=== PATIENT | male | born 1965 | race Hispanic/Latino ===

== ENCOUNTER 2019-07-21 16:20 | Emergency (ER) | payer SELFPAY ==
[2019-07-21] MEDS ORDERED: TETANUS,DIPH,PERTUSS(ACELL) VACCINE 0.5 ML SYRINGE IM ONE ×2 (17:16→23:24)
--- NOTE | 2019-07-21 17:16 | Emergency Department Report ---
Blank Doc - Documentation Documentation: 54-year-old male that presents with bilateral feet pain, swelling, with purulent drainage. Symptoms started after stepping on glass. Was sent by PCP. This initial assessment/diagnostic orders/clinical plan/treatment(s) is/are subject to change based on patient's health status, clinical progression and re- assessment by fellow clinical providers in the ED. Further treatment and workup at subsequent clinical providers discretion. Patient/guardians urged not to elope from the ED as their condition may be serious if not clinically assessed and managed. Initial orders include: 1- Patient sent to [facility] for further evaluation and treatment 2- xrays 3- last tetanus shot 2003
--- NOTE | 2019-07-21 18:00 | XRay Report ---
XR foot 3+V RT INDICATION / CLINICAL INFORMATION: right foot pain and swelling r/o foreign body. COMPARISON: None available. FINDINGS: BONES/JOINT(S): There is mild joint space loss with some marginal erosion around the first MTP joint which may suggest underlying gout. There is no definite aggressive-appearing bone destruction. SOFT TISSUES: There is some subcutaneous gas and soft tissue swelling around the first MTP joint with out radiopaque foreign body. ADDITIONAL FINDINGS: None. Signer Name: Macario Rutherford MD Signed: 07/21/2019 5:56 PM Workstation Name: [id number]
[2019-07-21] MEDS ORDERED: VANCOMYCIN/NS 1 GM/250 ML 1 GM/250 ML BAG IV ONE (19:54)
[2019-07-21] MEDS ORDERED: SODIUM CHLORIDE 0.9% 1000 ML 1,000 ML IV ONE (19:55)
[2019-07-21] MEDS ORDERED: ACETAMINOPHEN 500 MG TAB PO ONE (19:55)
[2019-07-21] MEDS ORDERED: VANCOMYCIN 2,000 MG in SODIUM CHLORIDE 0.9% 500 ML 500 ML IV ONE (20:30)
[2019-07-21 20:54] LABS: Hematocrit 29.3 % (35.5-45.6); Hemoglobin 9.7 gm/dl (11.8-15.2); Mean Corpuscular HGB Conc 33 % (32-34); Mean Corpuscular Volume 81 fl (84-94); Red Blood Count 3.63 M/mm3 (3.65-5.03); Red Cell Distribution Width 14.3 % (13.2-15.2)
[2019-07-21 21:06] LABS: Platelet Count 640 K/mm3 (140-440)
[2019-07-21 21:23] LABS: Albumin 3.1 g/dL (3.9-5); Calcium 9.2 mg/dL (8.4-10.2)
[2019-07-21 23:00] LABS: Basophils % (Manual) 0 % (0.0-1.8); Total Cells Counted 100
[2019-07-21 23:01] LABS: Platelet Estimate Appears Increased; RBC Morphology Normal
--- NOTE | 2019-07-21 23:29 | Emergency Department Report ---
ED Extremity Problem HPI - General Chief complaint: Extremity Problem,Nontraumatic Stated complaint: INFECTED FEET Time Seen by Provider: 07/21/19 17:14 Source: patient Mode of arrival: Ambulatory Limitations: No Limitations - History of Present Illness Initial comments: Patient is a 54-year-old white male with a history of hkm-tmdjxze-nsedegokx diabetes, chronic diabetic neuropathy and chronic recurrent diabetic ulcer of the feet bilaterally presents to the ED with acute exacerbation of his chronic diabetic foot ulcers, worse on the dorsal right food and right first MTP for the last 1 week, and especially worse in the last 2 days. Patient states that he has been treating his foot ulcers with peroxide and that he was initially evaluated by his primary care physician about 12 hours ago, and after the wounds were cleaned and dressed up was advised to come to the ED for further evaluation. Patient denies chest pain, traumatic injury, shortness of breath, nausea, vomiting, fever, chills, low back pain, abdominal pain or syncope. MD Complaint: extremity pain (right foot and first MTP pain, swelling and erythematous rash with open wound), extremity swelling (right foot pain and swelling), joint swelling (right first MTP pain and swelling) -: Sudden, days(s) (2) Location: lower extremity (right foot and right great toe), bilateral lower extremity, toe, other (Bilateral foot pain, swelling with ulcerated foot ulcers) History of Same: Yes (chronic diabetic foot ulcers) -: Yes myalgia, Yes arthralgia, No associated dyspnea, No associated chest pain Radiation: distal Severity scale (0 -10): 5 Quality: aching, sharp, constant Consistency: constant Improves with: nothing Worsens with: weight bearing, walking, exertion, palpation Associated Symptoms: denies other symptoms, arthralgias, rash (ulcerated bilateral foot ulcers with erythematous rash). denies: chest pain, shortness of breath, fever, myalgias - Related Data Previous Rx's Medication Instructions Recorded Last Taken Type Clindamycin [Clindamycin CAP] 300 mg PO Q8HR #60 capsule 07/21/19 Unknown Rx Mupirocin [Bactroban 2% OINT] 1 applic TP Q8H #1 tube 07/21/19 Unknown Rx Sulfamethoxazole/Trimethoprim 1 each PO Q12H #20 tablet 07/21/19 Unknown Rx [Bactrim DS TAB] traMADoL [Ultram] 50 mg PO Q6HR PRN #15 tablet 07/21/19 Unknown Rx Allergies Allergy/AdvReac Type Severity Reaction Status Date / Time No Known Allergies Allergy Verified 07/21/19 16:23 ED Review of Systems ROS: Stated complaint: INFECTED FEET Other details as noted in HPI Constitutional: denies: chills, fever Eyes: denies: eye pain, eye discharge, vision change ENT: denies: ear pain, throat pain Respiratory: denies: cough, shortness of breath, wheezing Cardiovascular: denies: chest pain, palpitations Endocrine: no symptoms reported Gastrointestinal: denies: abdominal pain, nausea, diarrhea Genitourinary: denies: urgency, dysuria Musculoskeletal: arthralgia (bilateral painful diabetic foot ulcers; erythematous swollen maculopapular rash on dorsal right foot and first MTP joint), myalgia. denies: back pain, joint swelling Skin: rash (erythematous swollen painful ulcerated rash with purulent discharge on dorsal right foot at the first MTP ), change in color (erythematous rash on dorsal right foot). denies: lesions Neurological: denies: headache, weakness, paresthesias Psychiatric: denies: anxiety, depression Hematological/Lymphatic: denies: easy bleeding, easy bruising ED Past Medical Hx - Past Medical History Previous Medical History?: Yes Hx Diabetes: Yes - Surgical History Past Surgical History?: No - Social History Smoking Status: Never Smoker Substance Use Type: None - Medications Home Medications: Home Medications Medication Instructions Recorded Confirmed Last Taken Type Clindamycin [Clindamycin CAP] 300 mg PO Q8HR #60 capsule 07/21/19 Unknown Rx Mupirocin [Bactroban 2% OINT] 1 applic TP Q8H #1 tube 07/21/19 Unknown Rx Sulfamethoxazole/Trimethoprim 1 each PO Q12H #20 tablet 07/21/19 Unknown Rx [Bactrim DS TAB] traMADoL [Ultram] 50 mg PO Q6HR PRN #15 tablet 07/21/19 Unknown Rx ED Physical Exam - General Limitations: No Limitations General appearance: alert, in no apparent distress - Head Head exam: Present: atraumatic, normocephalic, normal inspection - Eye Eye exam: Present: normal appearance, PERRL, EOMI Pupils: Present: normal accommodation - ENT ENT exam: Present: normal exam, normal orophraynx, mucous membranes moist, TM's normal bilaterally, normal external ear exam - Neck Neck exam: Present: normal inspection, full ROM. Absent: tenderness, lymphadenopathy - Respiratory Respiratory exam: Present: normal lung sounds bilaterally. Absent: respiratory distress, wheezes, rales, rhonchi, chest wall tenderness, accessory muscle use - Cardiovascular Cardiovascular Exam: Present: normal rhythm, tachycardia, normal heart sounds. Absent: systolic murmur, diastolic murmur, rubs, gallop - GI/Abdominal GI/Abdominal exam: Present: soft, normal bowel sounds. Absent: tenderness, guarding, rebound, hyperactive bowel sounds, hypoactive bowel sounds, organomegaly - Extremities Exam Extremities exam: Present: normal inspection, full ROM, tenderness (Palpable tenderness of dorsal left foot and first MTP due to erythematous maculopapular ulcerated rash with mild purulent discharge), normal capillary refill, joint swelling, other (Bilateral plantar foot ulcerated wounds with purulent discharge, swelling, and erythema with tenderness) - Back Exam Back exam: Present: normal inspection, full ROM. Absent: tenderness, CVA tenderness (R), muscle spasm, paraspinal tenderness, vertebral tenderness - Neurological Exam Neurological exam: Present: alert, oriented X3, CN II-XII intact, normal gait, reflexes normal - Psychiatric Psychiatric exam: Present: normal affect, normal mood - Skin Skin exam: Present: warm, dry, intact, normal color, rash (Erythematous maculopapular ulcerated wounds and rashes on dorsal right foot and on left plantar foot), erythema, other (Ulcerated tender maculopapular rashes with purulent discharge) ED Course Vital Signs 07/21/19 16:24 Temperature 99.2 F Pulse Rate 102 H Respiratory 16 Rate Blood Pressure 137/74 O2 Sat by Pulse 95 Oximetry ED Medical Decision Making - Lab Data Result diagrams: 07/21/19 20:15 07/21/19 20:15 - Radiology Data Radiology results: report reviewed, image reviewed Findings [facility] [address] [place] [address] XRay Report Signed Patient: ASAD ARTHUR MR#: [id number] : 1965 Acct:[id number] Age/Sex: 54 / M ADM Date: 07/21/19 Loc: ED Attending Dr: Ordering Physician: INDERJIT ELLIS NP Date of Service: 07/21/19 Procedure(s): XR foot 3+V RT Accession Number(s): [id number] cc: INDERJIT ELLIS NP Fluoro Time In Minutes: XR foot 3+V RT INDICATION / CLINICAL INFORMATION: right foot pain and swelling r/o foreign body. COMPARISON: None available. FINDINGS: BONES/JOINT(S): There is mild joint space loss with some marginal erosion around the first MTP joint which may suggest underlying gout. There is no definite aggressive- appearing bone destruction. SOFT TISSUES: There is some subcutaneous gas and soft tissue swelling around the first MTP joint without radiopaque foreign body. ADDITIONAL FINDINGS: None. Signer Name: Macario Rutherford MD Signed: 07/21/2019 5:56 PM Workstation Name: [id number] Transcribed By: JAYA Dictated By: Macario Rutherford MD Electronically Authenticated By: Macario Rutherford MD Signed Date/Time: 07/21/191755 DD/ 53 TD/TT: The bilateral lower extremities Doppler ultrasound shows no evidence of DVT - Medical Decision Making This is a 54-year-old white male with a history of chronic udz-ymfllnm-nnngtolim diabetes, chronic diabetic neuropathy and chronic diabetic foot ulcers who presented to the ED with worsening bilateral foot ulcers on pain and erythematous maculopapular rash on dorsal right foot and MTP for 2 days. Patient states that his diabetic foot ulcer been dressed and treated by his primary care physician at [facility] and that he was also evaluated about 12 hours ago for the same and advised to come to the ED for further evaluation and treatment. Patient states that the dorsal right foot ulcerated wound has worsened in the last 2 days purulent discharge and admits that he has been applying peroxide to each of the ulcerated wounds daily. In the ED, patient is alert and oriented 3 and is not in distress but slightly tachycardic in triage. Lab test results were reviewed and showed acute leukocytosis of 13,800, acute hyponatremia 132 mmol per liter, BUN 25, creatinine of 1.8 and glucose of 195 mg/dL. Right foot x-ray shows a is mild joint space loss with some marginal erosion around the first MTP joint which may suggest underlying gout. There is no definite aggressive-appearing bone destruction. There is also some subcutaneous gas and soft tissue swelling around the first MTP joint without radiopaque foreign body. The bilateral lower extremity Doppler ultrasound shows no evidence of DVT. The patient received vancomycin 1 g IV 1, and was also treated with Tylenol and normal saline 1 L IV bolus. I offered the patient admission to the hospital for further IV antibiotics but the patient refused to be eminently stating that he cannot stay in the hospital under any circumstances and does not want any admission, preferring to take oral antibiotics at home and continuing to work, stating that "I cannot afford to be admitted to the hospital, and I also cannot afford to stay out of work for even a single day". - Differential Diagnosis cellulitis; diabetic foot ulcers; osteomyelitis; Abscess; DVT Critical care attestation.: If time is entered above; I have spent that time in minutes in the direct care of this critically ill patient, excluding procedure time. ED Disposition Clinical Impression: Cellulitis and abscess of toe of right foot, Chronic diabetic ulcer of foot determined by examination Disposition: DC-01 TO HOME OR SELFCARE Is pt being admited?: No Does the pt Need Aspirin: No Condition: Stable Instructions: Cellulitis (ED), Diabetic Foot Ulcers (ED), Abscess (ED) Additional Instructions: Take medication with food, drink plenty of fluids and follow-up with your primary care physician in 3-5 days for reevaluation. Return to the ED immediately if symptoms get worse. Consider following up with the fireperson for further evaluation. Return to the ED immediately if symptoms get worse. Prescriptions: Sulfamethoxazole/Trimethoprim [Bactrim DS TAB] 1 each PO Q12H #20 tablet Mupirocin [Bactroban 2% OINT] 1 applic TP Q8H #1 tube Clindamycin [Clindamycin CAP] 300 mg PO Q8HR #60 capsule traMADoL [Ultram] 50 mg PO Q6HR PRN #15 tablet PRN Reason: Pain Referrals: [facility] [Outside] - 3-5 Days SHERRY MCKEON DPM [Staff Physician] - 3-5 Days BEVERLEY DONAHUE MD [Staff Physician] - 3-5 Days Time of Disposition: 23:53 Print Language: MARSHALLESE
--- NOTE | 2019-07-22 01:41 | Vascular Lab Report ---
DUPLEX DOPPLER BILATERAL LOWER EXTREMITY VEINS, 07/22/2019 INDICATION: Bilateral leg pain and swelling. TECHNIQUE: Duplex doppler imaging was performed through the veins of both lower extremities using venous kaylin anusha and other maneuvers. COMPARISON: None FINDINGS: Right Common Femoral vein: Negative. Right Superficial Femoral vein: Negative. Right Popliteal vein: Negative. Right Calf veins: Negative. Left Common Femoral vein: Negative. Left Superficial Femoral vein: Negative. Left Popliteal vein: Negative. Left Calf veins: Negative. Additional findings: A few prominent right inguinal lymph nodes are noted, the largest of which measu res 1.4 cm in short axis. IMPRESSION: 1. No sonographic evidence for DVT in either lower extremity. Signer Name: Linh Kelly MD Signed: 07/22/2019 1:37 AM Workstation Name: [id number]
[2019-07-22 01:53] VITALS: BP 125/67
== END 2019-07-22 01:52 | disposition home or self-care (01) ==
LOC: ED 16:20
DX: L03.031 Cellulitis of right toe (principal); E11.621 Type 2 diabetes mellitus with foot ulcer; Z79.899 Other long term (current) drug therapy
CPT/HCPCS: 36415; 73630; 80053; 85007; 85025; 87040; 90471; 90715; 93970; 96365; 96366; 99284; J3370; J7030; J7040

== ENCOUNTER 2019-09-08 16:44 | Inpatient (IN) | payer SELFPAY ==
--- NOTE | 2019-09-08 18:25 | Event Note ---
ED Screening Note ED Screening Note: ulcer to the that began a week ago states it first started on the big toe but has gotten bigger pt is diabetic only take oral medications for DM severe ulceration/cellulitis MAIN ED evaluation This initial assessment/diagnostic orders/clinical plan/treatment(s) is/are subject to change based on patients health status, clinical progression and re- assessment by fellow clinical providers in the ED. Further treatment and workup at subsequent clinical providers discretion. Patient/guardian urged not to elope from the ED as their condition may be serious if not clinically assessed and managed. Initial orders include: labs
[2019-09-08] MEDS ORDERED: PIPERACIL/TAZOBACTA 4.5/NS 100 4.5 GM/100 ML VIAL IV ONE (18:54)
[2019-09-08] MEDS ORDERED: SODIUM CHLORIDE 0.9% 1000 ML IV SOLN IV ONE (18:55)
--- NOTE | 2019-09-08 18:56 | Emergency Department Report ---
ED General Adult HPI - General Chief complaint: Extremity Problem,Nontraumatic Stated complaint: ULCER ON LEFT FOOT Time Seen by Provider: 09/08/19 18:22 Source: patient Mode of arrival: Ambulatory Limitations: No Limitations - History of Present Illness Initial comments: 54-year-old male with a history of diabetes, chronic neuropathy and recurrent chronic diabetic ulcer in the right foot presents with worsening ulcer to the left foot. Patient states that initially he only had a callus on the bottom of his foot for the past month. Patient states that he had swelling and redness that increased since Sunday. Patient states he has had recurrent ulcers on his right foot but this is the first time is been present on his left foot. Patient has noted a foul-smelling discharge from this foot as well patient denies any trauma to the foot. - Related Data Home Medications Medication Instructions Recorded Confirmed Last Taken Ferrous Sulfate [Ferrous Sulfate 324 mg PO DAILY 09/08/19 09/08/19 Unknown 324 MG] Gabapentin [Neurontin] 400 mg PO Q6H 09/08/19 09/08/19 Unknown amLODIPine 10 mg PO QDAY 09/08/19 09/08/19 Unknown glipiZIDE [Glucotrol] 20 mg PO BID 09/08/19 09/08/19 Unknown Allergies Allergy/AdvReac Type Severity Reaction Status Date / Time No Known Allergies Allergy Verified 07/21/19 16:23 ED Review of Systems ROS: Stated complaint: ULCER ON LEFT FOOT Other details as noted in HPI Constitutional: denies: chills, fever Eyes: denies: eye pain, eye discharge, vision change ENT: denies: ear pain, throat pain Respiratory: denies: cough, shortness of breath, wheezing Cardiovascular: denies: chest pain, palpitations Endocrine: no symptoms reported Gastrointestinal: denies: abdominal pain, nausea, diarrhea Genitourinary: denies: urgency, dysuria Musculoskeletal: other (Foot pain). denies: back pain, joint swelling, arthralgia Skin: denies: rash, lesions Neurological: denies: headache, weakness, paresthesias Psychiatric: denies: anxiety, depression Hematological/Lymphatic: denies: easy bleeding, easy bruising ED Past Medical Hx - Past Medical History Previous Medical History?: Yes Hx Diabetes: Yes - Surgical History Past Surgical History?: No - Social History Smoking Status: Never Smoker Substance Use Type: None - Medications Home Medications: Home Medications Medication Instructions Recorded Confirmed Last Taken Type Ferrous Sulfate [Ferrous Sulfate 324 mg PO DAILY 09/08/19 09/08/19 Unknown History 324 MG] Gabapentin [Neurontin] 400 mg PO Q6H 09/08/19 09/08/19 Unknown History amLODIPine 10 mg PO QDAY 09/08/19 09/08/19 Unknown History glipiZIDE [Glucotrol] 20 mg PO BID 09/08/19 09/08/19 Unknown History ED Physical Exam - General Limitations: No Limitations General appearance: alert, other (Mildly uncomfortable; dehydrated) - Head Head exam: Present: atraumatic, normocephalic - Eye Eye exam: Present: normal appearance - ENT ENT exam: Present: mucous membranes dry - Neck Neck exam: Present: normal inspection - Respiratory Respiratory exam: Present: normal lung sounds bilaterally. Absent: respiratory distress - Cardiovascular Cardiovascular Exam: Present: regular rate, normal rhythm. Absent: systolic murmur, diastolic murmur, rubs, gallop - GI/Abdominal GI/Abdominal exam: Present: soft, normal bowel sounds - Rectal Rectal exam: Present: deferred - Extremities Exam Extremities exam: Present: other (2+ dorsalis pedis pulses noted in the left lower extremity; ulcer noted on the plantar aspect of the great toe on the left. There is also a contaminated erythema that extends from the toes to the mid dorsum of the foot with swelling present. Patient also has a presence of a necrotic appearing blister formation on the dorsum of the left foot at the first metatarsal region on the dorsum of the foot.) - Back Exam Back exam: Present: normal inspection - Neurological Exam Neurological exam: Present: alert, oriented X3 - Psychiatric Psychiatric exam: Present: normal affect, normal mood - Skin Skin exam: Present: warm, dry, intact, normal color. Absent: rash ED Course Vital Signs 09/08/19 09/08/19 09/08/19 18:28 19:15 19:27 Temperature 99.3 F 98.5 F Pulse Rate 97 H 92 H Respiratory 20 20 12 Rate Blood Pressure 125/69 Blood Pressure 127/71 [Left] O2 Sat by Pulse 96 98 96 Oximetry 09/08/19 19:30 Temperature Pulse Rate 92 H Respiratory 18 Rate Blood Pressure 124/71 Blood Pressure [Left] O2 Sat by Pulse Oximetry ED Medical Decision Making - Lab Data Result diagrams: 09/08/19 18:45 09/08/19 18:45 - Medical Decision Making Patient received a gram of vancomycin and 4.5 g of Zosyn while in the emergency department. Patient also received IV fluids while in emergency department. Patient to be admitted to the hospitalist service for continued management and treatment. Patient has a presence of osteomyelitis as well as a cellulitis on the left lower extremity. - Differential Diagnosis Osteomyelitis; diabetic foot ulcer; dehydration; DKA; electrolyte abnormali Critical care attestation.: If time is entered above; I have spent that time in minutes in the direct care of this critically ill patient, excluding procedure time. ED Disposition Clinical Impression: Osteomyelitis, Diabetic foot ulcer associated with diabetes mellitus due to underlying condition, Diabetes mellitus Disposition: 09 OP ADMIT IP TO THIS HOSP Is pt being admited?: Yes Does the pt Need Aspirin: No Condition: Stable Instructions: Diabetes Mellitus Type 2 in Adults (ED) Referrals: PRIMARY CARE, [Primary Care Provider] - 3-5 Days Time of Disposition: 22:14 Print Language: FRENCH
[2019-09-08 19:30] LABS: Hematocrit 24.3 % (35.5-45.6); Mean Corpuscular HGB Conc 33 % (32-34); Mean Corpuscular Volume 77 fl (84-94); Platelet Count 480 K/mm3 (140-440); Red Blood Count 3.14 M/mm3 (3.65-5.03); Red Cell Distribution Width 16.3 % (13.2-15.2)
--- NOTE | 2019-09-08 19:30 | XRay Report ---
Left foot 3 views INDICATION: Left foot pain cellulitis IMPRESSION: Severe cellulitis surrounds much of the left great toe especially the medial aspect. Ther e is mild subluxation involving the interphalangeal joint of the great toe. There does appear to be s ome slight ostial lysis involving the proximal phalanx of the great toe suspicious for underlying ost eomyelitis. There is also focal lytic abnormality involving the medial aspect of the great toe metata rsal head. Signer Name: Heriberto Peña MD Signed: 09/08/2019 7:26 PM Workstation Name: [id number]
[2019-09-08 19:37] LABS: Calcium 8.8 mg/dL (8.4-10.2)
[2019-09-08] MEDS ORDERED: VANCOMYCIN/NS 1 GM/250 ML 1 GM/250 ML BAG IV ONE (19:45)
--- NOTE | 2019-09-08 22:37 | History and Physical Report ---
History of Present Illness History of present illness: 54-year-old male with a history of hypertension, diabetes comes emergency room for evaluation of his left foot. He stated that 1 month ago he had a blister on the left great toe that popped and he has been using antibiotic cream on the area wrapped with gauze. Stated that over the weekend he had a new blister on the side of his toe and the wound on the bottom of the great toe became dark. The new blister increased in size, his foot became red and swollen and he had drainage from the blister. He came to the emergency room for further evaluation, patient is being admitted for cellulitis of the left foot with osteomyelitis Review of systems Constitutional: no weight loss Ears, eyes, nose, mouth and throat: no nasal congestion, no nasal discharge, no sinus pressure, no vision change, no red eye. Neck: No neck pain or rigidity. Cardiovascular: no palpitations, chest pain Respiratory: no cough, shortness of breath Gastrointestinal: no hematochezia, abdominal pain Genitourinary : no frequency , no hematuria Musculoskeletal: no joint swelling or muscle ache Integumentary: no rash, no pruritis Neurological: no parathesias, focal weakness Endocrine: no cold or heat intolerance, no polyuria or polydipsia Hematologic/Lymphatic: no easy bruising, no easy bleeding, no gland swelling Allergic/Immunologic: no urticaria, no angioedema. PAST MEDICAL HISTORY: Hypertension, diabetes PAST SURGICAL HISTORY: None SOCIAL HISTORY: Denies alcohol, tobacco, drugs FAMILY HISTORY: Hypertension Medications and Allergies Allergies Allergy/AdvReac Type Severity Reaction Status Date / Time No Known Allergies Allergy Verified 07/21/19 16:23 Home Medications Medication Instructions Recorded Confirmed Last Taken Type Ferrous Sulfate [Ferrous Sulfate 324 mg PO DAILY 09/08/19 09/08/19 Unknown History 324 MG] Gabapentin [Neurontin] 400 mg PO Q6H 09/08/19 09/08/19 Unknown History amLODIPine 10 mg PO QDAY 09/08/19 09/08/19 Unknown History glipiZIDE [Glucotrol] 20 mg PO BID 09/08/19 09/08/19 Unknown History Exam - Physical Exam Narrative exam: Gen. appearance: Patient lying in bed, no apparent distress HEENT: Normocephalic, atraumatic, pupils equally round and reactive to light, extraocular movement intact, and no sclericterus,. No JVD or thyromegaly or nodule,neck supple, no carotid bruit ,mucous membranes moist, no exudate or erythema Heart: S1, S2, regular rate and rhythm Lungs: Clear to auscultation bilaterally, breathing comfortable Abdomen: Positive bowel sounds, nontender, nondistended, no organomegaly Extremity: No edema, cyanosis, clubbing Skin: The left great second and part of the third is swollen, erythematous extending up to the ankle, wound on the bottom of the toe,+ drainage, blackened spots, side more than the bottom, foul-smelling drainage, no rash Neuro: Oriented 3, cranial nerves II-12 intact, speech is fluent, motor and sensory intact - Constitutional Vitals: Temp Pulse Resp BP Pulse Ox 98.5 F 92 H 18 124/71 96 09/08/19 19:15 09/08/19 19:30 09/08/19 19:30 09/08/19 19:30 09/08/19 19:27 Results - Labs CBC & Chem 7: 09/09/19 04:35 09/09/19 04:35 Labs: Abnormal lab results 09/08/19 09/08/19 09/08/19 Range/Units 18:41 18:45 18:45 WBC 19.0 H (4.5-11.0) K/mm3 RBC 3.14 L (3.65-5.03) M/mm3 Hgb 8.0 L (11.8-15.2) gm/dl Hct 24.3 L (35.5-45.6) % MCV 77 L (84-94) fl MCH 26 L (28-32) pg RDW 16.3 H (13.2-15.2) % Plt Count 480 H (140-440) K/mm3 Sodium 130 L (137-145) mmol/L Chloride 85.6 L (98-107) mmol/L BUN 23 H (9-20) mg/dL Creatinine 1.9 H (0.8-1.5) mg/dL Glucose 259 H (75-100) mg/dL POC Glucose 275 H (70-105) Lactic Acid (0.7-2.0) mmol/L Alkaline Phosphatase 414 H (35-129) units/L Albumin 3.0 L (3.9-5) g/dL 09/08/19 Range/Units 18:45 WBC (4.5-11.0) K/mm3 RBC (3.65-5.03) M/mm3 Hgb (11.8-15.2) gm/dl Hct (35.5-45.6) % MCV (84-94) fl MCH (28-32) pg RDW (13.2-15.2) % Plt Count (140-440) K/mm3 Sodium (137-145) mmol/L Chloride (98-107) mmol/L BUN (9-20) mg/dL Creatinine (0.8-1.5) mg/dL Glucose (75-100) mg/dL POC Glucose (70-105) Lactic Acid 3.70 H* (0.7-2.0) mmol/L Alkaline Phosphatase (35-129) units/L Albumin (3.9-5) g/dL Assessment and Plan X-ray of the foot reviewed Assessment Cellulitis and osteomyelitis of the toes, foot Status post Vanco and Zosyn in the emergency room, continue these antibiotic Follow cultures, check wound culture, consult infectious disease Hyponatremia Continue IV fluids, monitor sodium level Hemoglobin dropped from 12 to 8 over 3 years Repeat CBC, patient denies any GI bleed Continue outpatient iron therapy, send stool for testing Diabetes Check fingersticks and start insulin sliding scale Start Lantus Acute on chronic renal insufficiency Start IV fluid, monitor kidney function Hypertension Continue Norvasc DVT prophylaxis
[2019-09-08] MEDS ORDERED: VANCOMYCIN/NS 1 GM/250 ML 1 GM/250 ML BAG IV SCH (23:45)
[2019-09-08] MEDS ORDERED: ONDANSETRON 4 MG/2 ML INJ IV PRN (23:47)
[2019-09-08] MEDS ORDERED: MORPHINE 2 MG/1 ML INJ IV PRN (23:47)
[2019-09-09] MEDS ORDERED: INSULIN GLARGINE 100 UNITS/ML SUB-Q ONE (01:00)
[2019-09-09] MEDS: GABAPENTIN 400 MG CAP PO SCH ×5 (01:47→23:59)
[2019-09-09] MEDS: oxyCODONE /ACETAMINOPHEN 5-325MG TAB PO PRN ×2 (01:47→18:18)
[2019-09-09] MEDS: SODIUM CHLORIDE 0.45% 1000 ML 1,000 ML IV SCH ×2 (02:14→12:42)
[2019-09-09 05:10] LABS: Basophils # (Auto) 0.1 K/mm3 (0.0-0.1); Basophils % (Auto) 0.5 % (0.0-1.8); Eosinophils # (Auto) 0.5 K/mm3 (0.0-0.4); Eosinophils % (Auto) 3.2 % (0.0-4.3); Hematocrit 21.9 % (35.5-45.6); Hemoglobin 7.1 gm/dl (11.8-15.2); Lymphocytes % (Auto) 6.1 % (13.4-35.0); Mean Corpuscular HGB Conc 32 % (32-34); Mean Corpuscular Volume 77 fl (84-94); Monocytes # (Auto) 1.4 K/mm3 (0.0-0.8); Monocytes % (Auto) 8.6 % (0.0-7.3); Platelet Count 451 K/mm3 (140-440); Red Blood Count 2.83 M/mm3 (3.65-5.03); Red Cell Distribution Width 16.5 % (13.2-15.2)
[2019-09-09 05:25] LABS: Calcium 8.2 mg/dL (8.4-10.2)
[2019-09-09] MEDS ORDERED: PIPERACIL-TAZO 2.25 GM/50 ML 2.25 GM/50 ML BAG IV SCH (06:00)
[2019-09-09] MEDS ORDERED: VANCOMYCIN/NS 1 GM/250 ML 1 GM/250 ML BAG IV SCH (07:00)
[2019-09-09] MEDS ORDERED: DEXTROSE 50% IN WATER (25GM) 50 ML SYRINGE IV PRN (08:36)
[2019-09-09] MEDS: INSULIN LISPRO 100 UNIT/ML SUB-Q SCH ×4 (08:57→22:07)
--- NOTE | 2019-09-09 09:22 | Progress Note ---
Assessment and Plan Assessment and plan: Sepsis due to cellulitis, osteo left foot Admitted to med/surg Cont iv Antibiotics Cellulitis and osteomyelitis of 1st toe left foot Status post Vanco and Zosyn in the emergency room, continue these antibiotic Follow cultures, check wound culture, consulted infectious disease physician Hyponatremia Continue IV fluids, monitor sodium level Anemia Repeat CBC, patient denies any GI bleed Continue outpatient iron therapy, send stool for testing Diabetes mellitus type 2 Check fingersticks and start insulin sliding scale Start Lantus Acute on chronic kidney disease due to vasomotor nephropathy Continue IV fluid, monitor kidney function Hypertension Continue Norvasc 09/09: Pain , ulcer left foot. ID Physician to see. continue iv Antibiotics. History Interval history: Pain, ulcer left foot Hospitalist Physical - Physical exam Narrative exam: GEN: Not in acute distress, lying in bed HEENT: Normocephalic, atraumatic, Neck: supple, No JVD Lungs: Clear to auscultation ,no wheeze, heart;S1 and S2 reg, no murmurs, rubs or gallop Abd:soft, non tender , non distended, normal bowel sounds Ext: Ulcer left 1st toe left foot, no clubbing, Neuro: Awake,alert, oriented X 3, no focal neurological signs - Constitutional Vitals: Temp Pulse Resp BP Pulse Ox 98.1 F 89 16 121/70 96 09/09/19 04:45 09/09/19 04:45 09/09/19 04:45 09/09/19 04:45 09/09/19 08:09 Results - Labs CBC & Chem 7: 09/09/19 04:35 09/09/19 04:35 Labs: Laboratory Last Values WBC 16.4 K/mm3 (4.5-11.0) H 09/09/19 04:35 RBC 2.83 M/mm3 (3.65-5.03) L 09/09/19 04:35 Hgb 7.1 gm/dl (11.8-15.2) L 09/09/19 04:35 Hct 21.9 % (35.5-45.6) L 09/09/19 04:35 MCV 77 fl (84-94) L 09/09/19 04:35 MCH 25 pg (28-32) L 09/09/19 04:35 MCHC 32 % (32-34) 09/09/19 04:35 RDW 16.5 % (13.2-15.2) H 09/09/19 04:35 Plt Count 451 K/mm3 (140-440) H 09/09/19 04:35 Lymph % (Auto) 6.1 % (13.4-35.0) L 09/09/19 04:35 [place] % (Auto) 8.6 % (0.0-7.3) H 09/09/19 04:35 Eos % (Auto) 3.2 % (0.0-4.3) 09/09/19 04:35 Baso % (Auto) 0.5 % (0.0-1.8) 09/09/19 04:35 Lymph # 1.0 K/mm3 (1.2-5.4) L 09/09/19 04:35 [place] # 1.4 K/mm3 (0.0-0.8) H 09/09/19 04:35 Eos # 0.5 K/mm3 (0.0-0.4) H 09/09/19 04:35 Baso # 0.1 K/mm3 (0.0-0.1) 09/09/19 04:35 Seg Neutrophils % 81.6 % (40.0-70.0) H 09/09/19 04:35 Seg Neutrophils # 13.4 K/mm3 (1.8-7.7) H 09/09/19 04:35 Sodium 134 mmol/L (137-145) L 09/09/19 04:35 Potassium 4.1 mmol/L (3.6-5.0) 09/09/19 04:35 Chloride 91.6 mmol/L (98-107) L 09/09/19 04:35 Carbon Dioxide 26 mmol/L (22-30) 09/09/19 04:35 Anion Gap 21 mmol/L 09/09/19 04:35 BUN 23 mg/dL (9-20) H 09/09/19 04:35 Creatinine 1.7 mg/dL (0.8-1.5) H 09/09/19 04:35 Estimated GFR 42 ml/min 09/09/19 04:35 BUN/Creatinine Ratio 14 % 09/09/19 04:35 Glucose 213 mg/dL (75-100) H 09/09/19 04:35 POC Glucose 200 (70-105) H 09/09/19 07:50 Lactic Acid 1.60 mmol/L (0.7-2.0) 09/08/19 20:30 Calcium 8.2 mg/dL (8.4-10.2) L 09/09/19 04:35 Total Bilirubin 0.50 mg/dL (0.1-1.2) 09/08/19 18:45 AST 30 units/L (5-40) 09/08/19 18:45 ALT 32 units/L (7-56) 09/08/19 18:45 Alkaline Phosphatase 414 units/L (35-129) H 09/08/19 18:45 Total Protein 7.9 g/dL (6.3-8.2) 09/08/19 18:45 Albumin 3.0 g/dL (3.9-5) L 09/08/19 18:45 Albumin/Globulin Ratio 0.6 % 09/08/19 18:45 Active Medications - Current Medications Current Medications: Generic Name Dose Route Start Last Admin Trade Name Freq PRN Reason Stop Dose Admin Acetaminophen 650 mg 09/08/19 23:47 Tylenol PO Q4H PRN Pain MILD(1-3)/Fever >100.5/LMABERT Amlodipine Besylate 10 mg 09/09/19 10:00 Amlodipine PO QDAY GABINO Dextrose 50 ml 09/09/19 08:36 D50w (25gm) Syringe IV Q30MIN PRN Hypoglycemia Protocol Ferrous Sulfate 325 mg 09/09/19 10:00 Feosol PO QDAY GABINO Gabapentin 400 mg 09/09/19 01:00 09/09/19 05:55 Gabapentin PO 400 mg Q6HR GABINO Administration Sodium Chloride 1,000 mls @ 100 mls/hr 09/08/19 23:45 09/09/19 02:14 Nacl 0.45% 1000 Ml IV 100 mls/hr DIRECT GABINO Administration Piperacillin Sod/Tazobactam Sod 2.25 gm in 50 mls @ 100 mls/hr 09/09/19 06:00 09/09/19 05:54 Zosyn/Ns 2.25 Gm/50ml IV 100 mls/hr Q8HR GABINO Administration Protocol Vancomycin HCl 1,500 mg/ 530 mls @ 333.333 mls/hr 09/09/19 18:00 Sodium Chloride IV Q24H [facility] Insulin Human Lispro 0 unit 09/09/19 22:00 Humalog SUB-Q QHS GABINO Protocol Insulin Human Lispro 0 unit 09/09/19 09:00 09/09/19 08:57 Humalog SUB-Q 3 unit AC [facility] Administration Protocol Morphine Sulfate 2 mg 09/08/19 23:47 Morphine IV Q4H PRN Pain, Moderate (4-6) Ondansetron HCl 4 mg 09/08/19 23:47 Zofran IV Q8H PRN Nausea And Vomiting Oxycodone/Acetaminophen 1 tab 09/09/19 00:24 09/09/19 01:47 Percocet 5/325 PO 1 tab Q4H PRN Administration Pain, Moderate (4-6) Sodium Chloride 10 ml 09/09/19 10:00 Sodium Chloride Flush Syringe 10 Ml IV BID [facility] Sodium Chloride 10 ml 09/08/19 23:47 Sodium Chloride Flush Syringe 10 Ml IV PRN PRN LINE FLUSH
[2019-09-09] MEDS: FERROUS SULFATE 325 MG TAB PO SCH (09:35)
[2019-09-09] MEDS: amLODIPine 10 MG TAB PO SCH (09:35)
[2019-09-09] MEDS ORDERED: ENOXAPARIN 30 MG/0.3 ML INJ SUB-Q SCH (10:00)
[2019-09-09] MEDS ORDERED: VANCOMYCIN PHARMACY TO DOSE IV SCH (11:00)
[2019-09-09] MEDS ORDERED: INSULIN LISPRO 100 UNIT/ML SUB-Q SCH (11:30)
--- NOTE | 2019-09-09 11:54 | Consultation ---
History of Present Illness - Reason for Consult Consult date: 09/09/19 osteomeylitis Requesting physician: DEUCE STEPHEN - History of Present Illness 54 y/o male with a history of uncontrolled diabetes, chronic neuropathy and recurrent chronic diabetic ulcer in the right foot admitted on 09/08/2019 due to worsening left great toe wound and discoloration extending to the forefoot. Patient states that initially he only had a water blister noted 4 weeks ago on the bottom of his left toe then became an ulcer started draining and then acute edema and red discoloration with some blackish toe discoloration in 3 days. on the bottom of his foot for the past month. Denies any fever, chills. Reports cough with clear sputum production for a week. Denies any influenza contacts. On arrival, temp 99.3, HR 97, R 20, BP 125/69, WBC 19. Creat 1.9. Gucose 275. Lactate 3.7. Blood culture on 09/08/2019 no growth. XR foot with left great toe edema and osteal lytic changes at the proximal phalanx and metatarsal. ID consulted for ostemyelitis. Review of Systems: Bold if positive, otherwise negative General: fevers, chills, rigors HEENT: visual disturbance, diplopia, eye pain Respiratory: cough, sputum, hemoptysis, shortness of breath Cardiovascular: chest pain, syncope Gastrointestinal: nausea, vomiting, diarrhea, abdominal pain Genitourinary: dysuria, hematuria, flank pain Musculoskeletal: +left great toe ulcer discoloration Neurologic: headaches, seizures Hematologic: easy bruising or bleeding Endocrine: night sweats, acute weight loss Skin: rash, jaundice, redness Psychiatric: suicidal, homicidal ideation Medications and Allergies Allergies Allergy/AdvReac Type Severity Reaction Status Date / Time No Known Allergies Allergy Verified 07/21/19 16:23 Home Medications Medication Instructions Recorded Confirmed Last Taken Type Ferrous Sulfate [Ferrous Sulfate 324 mg PO DAILY 09/08/19 09/08/19 Unknown History 324 MG] Gabapentin [Neurontin] 400 mg PO Q6H 09/08/19 09/08/19 Unknown History amLODIPine 10 mg PO QDAY 09/08/19 09/08/19 Unknown History glipiZIDE [Glucotrol] 20 mg PO BID 09/08/19 09/08/19 Unknown History Active Meds: Active Medications Acetaminophen (Tylenol) 650 mg PO Q4H PRN PRN Reason: Pain MILD(1-3)/Fever >100.5/LAMBERT Amlodipine Besylate (Amlodipine) 10 mg PO QDAY [facility] Last Admin: 09/09/19 09:35 Dose: 10 mg Documented by: Dextrose (D50w (25gm) Syringe) 50 ml IV Q30MIN PRN; Protocol PRN Reason: Hypoglycemia Ferrous Sulfate (Feosol) 325 mg PO QDAY [facility] Last Admin: 09/09/19 09:35 Dose: 325 mg Documented by: Gabapentin (Gabapentin) 400 mg PO Q6HR [facility] Last Admin: 09/09/19 05:55 Dose: 400 mg Documented by: Sodium Chloride (Nacl 0.45% 1000 Ml) 1,000 mls @ 100 mls/hr IV DIRECT [facility] Last Admin: 09/09/19 02:14 Dose: 100 mls/hr Documented by: Vancomycin HCl 1,500 mg/ (Sodium Chloride) 530 mls @ 333.333 mls/hr IV Q24HR@2200 GABINO Piperacillin Sod/Tazobactam Sod (Zosyn/Ns 4.5gm/100ml) 4.5 gm in 100 mls @ 200 mls/hr IV Q8HR [facility] Insulin Human Lispro (Humalog) 0 unit SUB-Q QHS [facility]; Protocol Insulin Human Lispro (Humalog) 0 unit SUB-Q [facility]; Protocol Last Admin: 09/09/19 08:57 Dose: 3 unit Documented by: Morphine Sulfate (Morphine) 2 mg IV Q4H PRN PRN Reason: Pain, Moderate (4-6) Ondansetron HCl (Zofran) 4 mg IV Q8H PRN PRN Reason: Nausea And Vomiting Oxycodone/Acetaminophen (Percocet 5/325) 1 tab PO Q4H PRN PRN Reason: Pain, Moderate (4-6) Last Admin: 09/09/19 01:47 Dose: 1 tab Documented by: Sodium Chloride (Sodium Chloride Flush Syringe 10 Ml) 10 ml IV BID [facility] Last Admin: 09/09/19 09:36 Dose: 10 ml Documented by: Sodium Chloride (Sodium Chloride Flush Syringe 10 Ml) 10 ml IV PRN PRN PRN Reason: LINE FLUSH Physical Examination - Physical Exam Narrative exam: Constitutional: alert in NAD pleasant Head, Ears, Nose: Normocephalic, atraumatic. External ears, nose normal Oral: Clear OP Neck: no JVD no masses Cardiovascular: RRR Respiratory: bibasilar crackles GI: Soft, non-tender; bowel sounds normal. No peritoneal signs. Musculoskeletal: +marked redness edema and blackish discoloarion of left great toe and fore foot Skin: no rash Hem/Lymphatic: No palpable cervical or supraclavicular nodes. No lymphangitis Psych: no agitated Neurological: alert oriented moving all extremities - Constitutional Vitals: Vital Signs Temp Pulse Resp BP Pulse Ox 98.1 F 87 16 129/75 96 09/09/19 04:45 09/09/19 09:35 09/09/19 04:45 09/09/19 09:35 09/09/19 08:09 Temperature -Last 24 Hours Temperature 98.1 F Temperature 99.8 F Temperature 98.5 F Temperature 99.3 F Results - Labs CBC & Chem 7: 09/09/19 04:35 09/09/19 04:35 Labs: Abnormal lab results 09/08/19 09/08/19 09/08/19 Range/Units 18:41 18:45 18:45 WBC 19.0 H (4.5-11.0) K/mm3 RBC 3.14 L (3.65-5.03) M/mm3 Hgb 8.0 L (11.8-15.2) gm/dl Hct 24.3 L (35.5-45.6) % MCV 77 L (84-94) fl MCH 26 L (28-32) pg RDW 16.3 H (13.2-15.2) % Plt Count 480 H (140-440) K/mm3 Lymph % (Auto) (13.4-35.0) % [place] % (Auto) (0.0-7.3) % Lymph # (1.2-5.4) K/mm3 [place] # (0.0-0.8) K/mm3 Eos # (0.0-0.4) K/mm3 Seg Neutrophils % (40.0-70.0) % Seg Neutrophils # (1.8-7.7) K/mm3 Sodium 130 L (137-145) mmol/L Chloride 85.6 L (98-107) mmol/L BUN 23 H (9-20) mg/dL Creatinine 1.9 H (0.8-1.5) mg/dL Glucose 259 H (75-100) mg/dL POC Glucose 275 H (70-105) Hemoglobin A1c (4-6) % Lactic Acid (0.7-2.0) mmol/L Calcium (8.4-10.2) mg/dL Alkaline Phosphatase 414 H (35-129) units/L Albumin 3.0 L (3.9-5) g/dL 09/08/19 09/09/19 09/09/19 Range/Units 18:45 04:35 04:35 WBC 16.4 H (4.5-11.0) K/mm3 RBC 2.83 L (3.65-5.03) M/mm3 Hgb 7.1 L (11.8-15.2) gm/dl Hct 21.9 L (35.5-45.6) % MCV 77 L (84-94) fl MCH 25 L (28-32) pg RDW 16.5 H (13.2-15.2) % Plt Count 451 H (140-440) K/mm3 Lymph % (Auto) 6.1 L (13.4-35.0) % [place] % (Auto) 8.6 H (0.0-7.3) % Lymph # 1.0 L (1.2-5.4) K/mm3 [place] # 1.4 H (0.0-0.8) K/mm3 Eos # 0.5 H (0.0-0.4) K/mm3 Seg Neutrophils % 81.6 H (40.0-70.0) % Seg Neutrophils # 13.4 H (1.8-7.7) K/mm3 Sodium 134 L (137-145) mmol/L Chloride 91.6 L (98-107) mmol/L BUN 23 H (9-20) mg/dL Creatinine 1.7 H (0.8-1.5) mg/dL Glucose 213 H (75-100) mg/dL POC Glucose (70-105) Hemoglobin A1c (4-6) % Lactic Acid 3.70 H* (0.7-2.0) mmol/L Calcium 8.2 L (8.4-10.2) mg/dL Alkaline Phosphatase (35-129) units/L Albumin (3.9-5) g/dL 09/09/19 09/09/19 09/09/19 Range/Units 07:50 09:08 11:25 WBC (4.5-11.0) K/mm3 RBC (3.65-5.03) M/mm3 Hgb (11.8-15.2) gm/dl Hct (35.5-45.6) % MCV (84-94) fl MCH (28-32) pg RDW (13.2-15.2) % Plt Count (140-440) K/mm3 Lymph % (Auto) (13.4-35.0) % [place] % (Auto) (0.0-7.3) % Lymph # (1.2-5.4) K/mm3 [place] # (0.0-0.8) K/mm3 Eos # (0.0-0.4) K/mm3 Seg Neutrophils % (40.0-70.0) % Seg Neutrophils # (1.8-7.7) K/mm3 Sodium (137-145) mmol/L Chloride (98-107) mmol/L BUN (9-20) mg/dL Creatinine (0.8-1.5) mg/dL Glucose (75-100) mg/dL POC Glucose 200 H 186 H (70-105) Hemoglobin A1c 10.0 H (4-6) % Lactic Acid (0.7-2.0) mmol/L Calcium (8.4-10.2) mg/dL Alkaline Phosphatase (35-129) units/L Albumin (3.9-5) g/dL Assessment and Plan Cultures: Blood culture 09/08/2019 no growth today Assessment/plan: 54 y/o male with a history of uncontrolled diabetes, chronic neuropathy and recurrent chronic diabetic ulcer in the right foot admitted on 09/08/2019 due to worsening left great toe wound and discoloration extending to the forefoot: #Severe sepsis: present on admission with low grade fever, tacycardia, leukocytosis and elevated lactate; etiology left toe diabetic ulcer with osteomyeltis #Left toe diabetic ulcer with osteomyeltis: early gangrene. XR foot with left great toe edema and osteal lytic changes at the proximal phalanx and metatarsal. #JYOTI: renally adjusted abx #Diabetes uncontrolled Recommendations: arterial dopplers surgical consult stop zosyn start cefepime and metronidazole renally adjust abx continue vancomycin Will follow MD [facility]
[2019-09-09] MEDS ORDERED: PIPERACIL/TAZOBACTA 4.5/NS 100 4.5 GM/100 ML VIAL IV SCH (14:00)
[2019-09-09] MEDS: CEFEPIME/NS 2 GM/100 ML 2 GM/100 ML BAG IV SCH ×2 (16:36→22:05)
--- NOTE | 2019-09-09 17:46 | Event Note ---
Date: 09/09/19 Consult noted in orders. Consult for general surgery, Dr. Dee already placed by spinneret person and discussed with him. He is planning to see patient in am for diabetic foot wound. Discussed with Dr. Jones. Will defer wound care/surgical recs to Dr. Dee.
[2019-09-09] MEDS: HEPARIN 5,000 UNIT/1 ML VIAL SUB-Q SCH ×2 (18:18→22:06)
[2019-09-09] MEDS: metroNIDAZOLE/NS 500 MG/100 ML 500 MG/100 ML BAG IV SCH ×2 (18:18→22:06)
[2019-09-09] MEDS: VANCOMYCIN 1,500 MG in SODIUM CHLORIDE 0.9% 500 ML 500 ML IV SCH (22:07)
[2019-09-10] MEDS: SODIUM CHLORIDE 0.45% 1000 ML 1,000 ML IV SCH (02:23)
[2019-09-10] MEDS: ACETAMINOPHEN 325 MG TAB PO PRN ×2 (02:23→09:43)
[2019-09-10 06:00] LABS: Hematocrit 21.2 % (35.5-45.6); Hemoglobin 6.9 gm/dl (11.8-15.2); Mean Corpuscular HGB Conc 33 % (32-34); Mean Corpuscular Volume 78 fl (84-94); Platelet Count 467 K/mm3 (140-440); Red Blood Count 2.74 M/mm3 (3.65-5.03); Red Cell Distribution Width 16.4 % (13.2-15.2)
[2019-09-10 06:20] LABS: Calcium 8.2 mg/dL (8.4-10.2)
[2019-09-10] MEDS: metroNIDAZOLE/NS 500 MG/100 ML 500 MG/100 ML BAG IV SCH ×3 (06:38→21:50)
[2019-09-10] MEDS: GABAPENTIN 400 MG CAP PO SCH ×4 (06:38→23:01)
[2019-09-10] MEDS ORDERED: SODIUM CHLORIDE 0.9% 500 ML 500 ML IV SCH (08:30)
--- NOTE | 2019-09-10 09:16 | Progress Note ---
Assessment and Plan Assessment and plan: Sepsis due to cellulitis, osteo left foot Admitted to med/surg Cont iv Antibiotics Cellulitis and osteomyelitis of 1st toe left foot Status post Vanco and Zosyn in the emergency room, continue these antibiotic Follow cultures, check wound culture, consulted infectious disease physician. I discussed with Dr. Argueta Surg consultede- Dr. Babin Hyponatremia Continue IV fluids, monitor sodium level Anemia Repeat CBC, patient denies any GI bleed Continue outpatient iron therapy, send stool for testing Diabetes mellitus type 2 Check fingersticks and start insulin sliding scale Start Lantus Acute on chronic kidney disease due to vasomotor nephropathy Continue IV fluid, monitor kidney function Hypertension Continue Norvasc 09/09: Pain , ulcer left foot. ID Physician to see. continue iv Antibiotics. 09/10 still pain left 1st toe. patient seen by Dr. babin, Surgeon. For MRI, surg tomorrow. History Interval history: Pain, ulcer left foot Hospitalist Physical - Physical exam Narrative exam: GEN: Not in acute distress, lying in bed HEENT: Normocephalic, atraumatic, Neck: supple, No JVD Lungs: Clear to auscultation ,no wheeze, heart;S1 and S2 reg, no murmurs, rubs or gallop Abd:soft, non tender , non distended, normal bowel sounds Ext: Ulcer left 1st toe left foot, no clubbing, Neuro: Awake,alert, oriented X 3, no focal neurological signs - Constitutional Vitals: Temp Pulse Resp BP Pulse Ox 98.5 F 84 16 115/71 93 09/10/19 04:32 09/09/19 21:04 09/10/19 04:32 09/10/19 04:32 09/10/19 08:37 Results - Labs CBC & Chem 7: 09/10/19 05:32 09/10/19 05:32 Labs: Laboratory Last Values WBC 11.9 K/mm3 (4.5-11.0) H 09/10/19 05:32 RBC 2.74 M/mm3 (3.65-5.03) L 09/10/19 05:32 Hgb 6.9 gm/dl (11.8-15.2) L 09/10/19 05:32 Hct 21.2 % (35.5-45.6) L 09/10/19 05:32 MCV 78 fl (84-94) L 09/10/19 05:32 MCH 25 pg (28-32) L 09/10/19 05:32 MCHC 33 % (32-34) 09/10/19 05:32 RDW 16.4 % (13.2-15.2) H 09/10/19 05:32 Plt Count 467 K/mm3 (140-440) H 09/10/19 05:32 Lymph % (Auto) 6.1 % (13.4-35.0) L 09/09/19 04:35 [place] % (Auto) 8.6 % (0.0-7.3) H 09/09/19 04:35 Eos % (Auto) 3.2 % (0.0-4.3) 09/09/19 04:35 Baso % (Auto) 0.5 % (0.0-1.8) 09/09/19 04:35 Lymph # 1.0 K/mm3 (1.2-5.4) L 09/09/19 04:35 [place] # 1.4 K/mm3 (0.0-0.8) H 09/09/19 04:35 Eos # 0.5 K/mm3 (0.0-0.4) H 09/09/19 04:35 Baso # 0.1 K/mm3 (0.0-0.1) 09/09/19 04:35 Seg Neutrophils % 81.6 % (40.0-70.0) H 09/09/19 04:35 Seg Neutrophils # 13.4 K/mm3 (1.8-7.7) H 09/09/19 04:35 Sodium 134 mmol/L (137-145) L 09/10/19 05:32 Potassium 4.1 mmol/L (3.6-5.0) 09/10/19 05:32 Chloride 93.3 mmol/L (98-107) L 09/10/19 05:32 Carbon Dioxide 26 mmol/L (22-30) 09/10/19 05:32 Anion Gap 19 mmol/L 09/10/19 05:32 BUN 20 mg/dL (9-20) 09/10/19 05:32 Creatinine 1.4 mg/dL (0.8-1.5) 09/10/19 05:32 Estimated GFR 53 ml/min 09/10/19 05:32 BUN/Creatinine Ratio 14 % 09/10/19 05:32 Glucose 186 mg/dL (75-100) H 09/10/19 05:32 POC Glucose 203 (70-105) H 09/10/19 07:49 Hemoglobin A1c 10.0 % (4-6) H 09/09/19 09:08 Lactic Acid 1.60 mmol/L (0.7-2.0) 09/08/19 20:30 Calcium 8.2 mg/dL (8.4-10.2) L 09/10/19 05:32 Total Bilirubin 0.50 mg/dL (0.1-1.2) 09/08/19 18:45 AST 30 units/L (5-40) 09/08/19 18:45 ALT 32 units/L (7-56) 09/08/19 18:45 Alkaline Phosphatase 414 units/L (35-129) H 09/08/19 18:45 Total Protein 7.9 g/dL (6.3-8.2) 09/08/19 18:45 Albumin 3.0 g/dL (3.9-5) L 09/08/19 18:45 Albumin/Globulin Ratio 0.6 % 09/08/19 18:45 Active Medications - Current Medications Current Medications: Generic Name Dose Route Start Last Admin Trade Name Freq PRN Reason Stop Dose Admin Acetaminophen 650 mg 09/08/19 23:47 09/10/19 02:23 Tylenol PO 650 mg Q4H PRN Administration Pain MILD(1-3)/Fever >100.5/LAMBERT Amlodipine Besylate 10 mg 09/09/19 10:00 09/09/19 09:35 Amlodipine PO 10 mg QDAY GABINO Administration Dextrose 50 ml 09/09/19 08:36 D50w (25gm) Syringe IV Q30MIN PRN Hypoglycemia Protocol Ferrous Sulfate 325 mg 09/09/19 10:00 09/09/19 09:35 Feosol PO 325 mg QDAY GABINO Administration Gabapentin 400 mg 09/09/19 01:00 09/10/19 06:38 Gabapentin PO 400 mg Q6HR GABINO Administration Heparin Sodium (Porcine) 5,000 unit 09/09/19 18:00 09/09/19 22:06 Heparin SUB-Q Not Given Q12HR GABINO Sodium Chloride 1,000 mls @ 100 mls/hr 09/08/19 23:45 09/10/19 02:23 Nacl 0.45% 1000 Ml IV 100 mls/hr DIRECT GABINO Administration Vancomycin HCl 1,500 mg/ 530 mls @ 333.333 mls/hr 09/09/19 22:00 09/09/19 22:07 Sodium Chloride IV 333.333 mls/hr Q24HR@2200 GABINO Administration Cefepime HCl 2 gm in 100 mls @ 200 mls/hr 09/09/19 14:00 09/09/19 22:05 Cefepime/Ns 2 Gm/100 Ml IV Not Given Q12HR GABINO Protocol Metronidazole 500 mg in 100 mls @ 100 mls/hr 09/09/19 14:00 09/10/19 06:38 Flagyl 500 Mg/100 Ml IV 100 mls/hr Q8HR GABINO Administration Protocol Sodium Chloride 500 mls @ 0 mls/hr 09/10/19 08:30 Nacl 0.9% 500 Ml IV 09/10/19 18:00 ONCE GABINO As Directed Insulin Human Lispro 0 unit 09/09/19 22:00 09/09/19 22:07 Humalog SUB-Q 3 unit QHS [facility] Administration Protocol Insulin Human Lispro 0 unit 09/09/19 09:00 09/09/19 18:19 Humalog SUB-Q 3 unit AC GABINO Administration Protocol Morphine Sulfate 2 mg 09/08/19 23:47 Morphine IV Q4H PRN Pain, Moderate (4-6) Ondansetron HCl 4 mg 09/08/19 23:47 Zofran IV Q8H PRN Nausea And Vomiting Oxycodone/Acetaminophen 1 tab 09/09/19 00:24 09/09/19 18:18 Percocet 5/325 PO 1 tab Q4H PRN Administration Pain, Moderate (4-6) Sodium Chloride 10 ml 09/09/19 10:00 09/09/19 22:13 Sodium Chloride Flush Syringe 10 Ml IV 10 ml BID GABINO Administration Sodium Chloride 10 ml 09/08/19 23:47 Sodium Chloride Flush Syringe 10 Ml IV PRN PRN LINE FLUSH
[2019-09-10] MEDS: amLODIPine 10 MG TAB PO SCH (09:24)
[2019-09-10] MEDS: CEFEPIME/NS 2 GM/100 ML 2 GM/100 ML BAG IV SCH ×2 (09:24→23:00)
[2019-09-10] MEDS: HEPARIN 5,000 UNIT/1 ML VIAL SUB-Q SCH ×2 (09:24→21:44)
[2019-09-10] MEDS: FERROUS SULFATE 325 MG TAB PO SCH (09:24)
[2019-09-10] MEDS: INSULIN LISPRO 100 UNIT/ML SUB-Q SCH ×3 (09:26→17:53)
--- NOTE | 2019-09-10 09:39 | Consultation ---
History of Present Illness Consult date: 09/10/19 - History of present illness History of present illness: 54 yo diabetic male with an infected left great toe. He does not smoke. Past History Past Medical History: anemia, diabetes, hypertension Medications and Allergies Allergies Allergy/AdvReac Type Severity Reaction Status Date / Time No Known Allergies Allergy Verified 07/21/19 16:23 Home Medications Medication Instructions Recorded Confirmed Last Taken Type Ferrous Sulfate [Ferrous Sulfate 324 mg PO DAILY 09/08/19 09/08/19 Unknown History 324 MG] Gabapentin [Neurontin] 400 mg PO Q6H 09/08/19 09/08/19 Unknown History amLODIPine 10 mg PO QDAY 09/08/19 09/08/19 Unknown History glipiZIDE [Glucotrol] 20 mg PO BID 09/08/19 09/08/19 Unknown History Active Meds: Active Medications Acetaminophen (Tylenol) 650 mg PO Q4H PRN PRN Reason: Pain MILD(1-3)/Fever >100.5/LAMBERT Last Admin: 09/10/19 02:23 Dose: 650 mg Documented by: Amlodipine Besylate (Amlodipine) 10 mg PO QDAY [facility] Last Admin: 09/09/19 09:35 Dose: 10 mg Documented by: Dextrose (D50w (25gm) Syringe) 50 ml IV Q30MIN PRN; Protocol PRN Reason: Hypoglycemia Ferrous Sulfate (Feosol) 325 mg PO QDAY [facility] Last Admin: 09/09/19 09:35 Dose: 325 mg Documented by: Gabapentin (Gabapentin) 400 mg PO Q6HR [facility] Last Admin: 09/10/19 06:38 Dose: 400 mg Documented by: Heparin Sodium (Porcine) (Heparin) 5,000 unit SUB-Q Q12HR [facility] Last Admin: 09/09/19 22:06 Dose: Not Given Documented by: Sodium Chloride (Nacl 0.45% 1000 Ml) 1,000 mls @ 100 mls/hr IV DIRECT [facility] Last Admin: 09/10/19 02:23 Dose: 100 mls/hr Documented by: Vancomycin HCl 1,500 mg/ (Sodium Chloride) 530 mls @ 333.333 mls/hr IV Q24HR@2200 [facility] Last Admin: 09/09/19 22:07 Dose: 333.333 mls/hr Documented by: Cefepime HCl (Cefepime/Ns 2 Gm/100 Ml) 2 gm in 100 mls @ 200 mls/hr IV Q12HR [facility]; Protocol Last Admin: 09/09/19 22:05 Dose: Not Given Documented by: Metronidazole (Flagyl 500 Mg/100 Ml) 500 mg in 100 mls @ 100 mls/hr IV Q8HR [facility]; Protocol Last Admin: 09/10/19 06:38 Dose: 100 mls/hr Documented by: Sodium Chloride (Nacl 0.9% 500 Ml) 500 mls @ 0 mls/hr IV ONCE [facility] Stop: 09/10/19 18:00 Insulin Human Lispro (Humalog) 0 unit SUB-Q QHS [facility]; Protocol Last Admin: 09/09/19 22:07 Dose: 3 unit Documented by: Insulin Human Lispro (Humalog) 0 unit SUB-Q AC [facility]; Protocol Last Admin: 09/09/19 18:19 Dose: 3 unit Documented by: Morphine Sulfate (Morphine) 2 mg IV Q4H PRN PRN Reason: Pain, Moderate (4-6) Ondansetron HCl (Zofran) 4 mg IV Q8H PRN PRN Reason: Nausea And Vomiting Oxycodone/Acetaminophen (Percocet 5/325) 1 tab PO Q4H PRN PRN Reason: Pain, Moderate (4-6) Last Admin: 09/09/19 18:18 Dose: 1 tab Documented by: Sodium Chloride (Sodium Chloride Flush Syringe 10 Ml) 10 ml IV BID [facility] Last Admin: 09/09/19 22:13 Dose: 10 ml Documented by: Sodium Chloride (Sodium Chloride Flush Syringe 10 Ml) 10 ml IV PRN PRN PRN Reason: LINE FLUSH Review of Systems All systems: negative (none) Exam Vital Signs Temp Pulse Resp BP Pulse Ox 99.3 F 97 H 20 125/69 96 09/08/19 18:28 09/08/19 18:28 09/08/19 18:28 09/08/19 18:28 09/08/19 18:28 - General physical appearance Positive: well developed, well nourished, no distress - Eyes Positive: PERRL, normal occular movement - ENT Positive: normal pinna, normal nares, normal mucosa, no hearing loss, no congestion - Neck Positive: no masses, no bruits, trachea midline, no venous distension - Respiratory Positive: normal expansion, normal respiratory effort, clear to auscultation - Cardiovascular Rhythm: regular Heart Sounds: Present: S1 & S2. Absent: rub, click - Extremities Extremity abnormal: other (Left DP is 2+. There is a 3 cm wound over the medial left great toe with necrotic tissue and palpable bone. There is a 2nd 3 X 6 cm wound over the medial aspect of the left distal foot with wet, draining necrotic tissue.) - Breasts Breasts: deferred - Abdomen Abdomen: Present: soft, bowel sounds normal. Absent: tender, distended Hernia: none - Genitourinary Male Genitourinary: deferred - Neurologic Neurologic: alert and oriented to time, place and person, motor strength and sensation are grossly intact - Musculoskeletal normal gait, normal posture - Psychiatric Psychiatric: appropriate mood/affect, intact judgment & insight Results - Labs 09/10/19 05:32 09/10/19 05:32 Abnormal lab results 09/09/19 09/09/19 09/09/19 Range/Units 09:08 11:25 16:47 WBC (4.5-11.0) K/mm3 RBC (3.65-5.03) M/mm3 Hgb (11.8-15.2) gm/dl Hct (35.5-45.6) % MCV (84-94) fl MCH (28-32) pg RDW (13.2-15.2) % Plt Count (140-440) K/mm3 Sodium (137-145) mmol/L Chloride (98-107) mmol/L Glucose (75-100) mg/dL POC Glucose 186 H 232 H (70-105) Hemoglobin A1c 10.0 H (4-6) % Calcium (8.4-10.2) mg/dL Crossmatch 09/09/19 09/10/19 09/10/19 Range/Units 21:17 05:32 05:32 WBC 11.9 H (4.5-11.0) K/mm3 RBC 2.74 L (3.65-5.03) M/mm3 Hgb 6.9 L (11.8-15.2) gm/dl Hct 21.2 L (35.5-45.6) % MCV 78 L (84-94) fl MCH 25 L (28-32) pg RDW 16.4 H (13.2-15.2) % Plt Count 467 H (140-440) K/mm3 Sodium 134 L (137-145) mmol/L Chloride 93.3 L (98-107) mmol/L Glucose 186 H (75-100) mg/dL POC Glucose 223 H (70-105) Hemoglobin A1c (4-6) % Calcium 8.2 L (8.4-10.2) mg/dL Crossmatch 09/10/19 09/10/19 Range/Units 07:49 08:34 WBC (4.5-11.0) K/mm3 RBC (3.65-5.03) M/mm3 Hgb (11.8-15.2) gm/dl Hct (35.5-45.6) % MCV (84-94) fl MCH (28-32) pg RDW (13.2-15.2) % Plt Count (140-440) K/mm3 Sodium (137-145) mmol/L Chloride (98-107) mmol/L Glucose (75-100) mg/dL POC Glucose 203 H (70-105) Hemoglobin A1c (4-6) % Calcium (8.4-10.2) mg/dL Crossmatch See Detail Diabetes panel 09/09/19 09/10/19 Range/Units 09:08 05:32 Sodium 134 L (137-145) mmol/L Potassium 4.1 (3.6-5.0) mmol/L Chloride 93.3 L (98-107) mmol/L Carbon Dioxide 26 (22-30) mmol/L BUN 20 (9-20) mg/dL Creatinine 1.4 (0.8-1.5) mg/dL Glucose 186 H (75-100) mg/dL Hemoglobin A1c 10.0 H (4-6) % Calcium 8.2 L (8.4-10.2) mg/dL Calcium panel 09/10/19 Range/Units 05:32 Calcium 8.2 L (8.4-10.2) mg/dL Pituitary panel 09/10/19 Range/Units 05:32 Sodium 134 L (137-145) mmol/L Potassium 4.1 (3.6-5.0) mmol/L Chloride 93.3 L (98-107) mmol/L Carbon Dioxide 26 (22-30) mmol/L BUN 20 (9-20) mg/dL Creatinine 1.4 (0.8-1.5) mg/dL Glucose 186 H (75-100) mg/dL Calcium 8.2 L (8.4-10.2) mg/dL Adrenal panel 09/10/19 Range/Units 05:32 Sodium 134 L (137-145) mmol/L Potassium 4.1 (3.6-5.0) mmol/L Chloride 93.3 L (98-107) mmol/L Carbon Dioxide 26 (22-30) mmol/L BUN 20 (9-20) mg/dL Creatinine 1.4 (0.8-1.5) mg/dL Glucose 186 H (75-100) mg/dL Calcium 8.2 L (8.4-10.2) mg/dL - Imaging Additional studies: A1c was 10 yesterday. Left foot x-ray on 09/08/19 was suspicious for osteomyelitis of the proximal phalanx of the left great toe and adjacent metatarsal head. Assessment and Plan - Patient Problems (1) Diabetic foot ulcer associated with diabetes mellitus due to underlying condition Current Visit: Yes Status: Acute (2) Osteomyelitis Current Visit: Yes Status: Acute Plan to address problem: 1) Arterial dopplers today of LLE 2) MRI of left foot today 3) Transfusion of 2 units of PRBC 4) Dakin's dressing changes to left foot 5) NPO after MN in preparation for left great toe TMA tomorrow.
--- NOTE | 2019-09-10 10:45 | Progress Note ---
Assessment and Plan Cultures: Blood culture 09/08/2019 GPC in chains Assessment/plan: 54 y/o male with a history of uncontrolled diabetes, chronic neuropathy and recurrent chronic diabetic ulcer in the right foot admitted on 09/08/2019 due to worsening left great toe wound and discoloration extending to the forefoot: #Severe sepsis: improving; etiology left toe diabetic ulcer with osteomyeltis +/- GPC bacreremia #GPC in chain bacteremia: blood culture growing 2 of 4 bottles. Source ? left foot infection versus pneumonia #Left toe diabetic ulcer with osteomyeltis: early gangrene. XR foot with left great toe edema and osteal lytic changes at the proximal phalanx and metatarsal. #JYOTI: renally adjusted abx, improving #Diabetes uncontrolled Recommendations: repeat blood culture today obtain TTE arterial dopplers - pending surgery on board Foot MRI ordered continue cefepime 2 gm IV q 12 hour and metronidazole 500 mg IV q 8 hour continue vancomycin with PK consult Will follow MD Shannan Ward [facility] Subjective Date of service: 09/10/19 Principal diagnosis: left foot diabetes wound infection Interval history: Reports feeling better, tmax 99.8, no pain, still coughing Objective - Exam Narrative Exam: Constitutional: alert in NAD pleasant Head, Ears, Nose: Normocephalic, atraumatic. External ears, nose normal Oral: Clear OP Neck: no JVD no masses Cardiovascular: RRR Respiratory: bibasilar crackles GI: Soft, non-tender; bowel sounds normal. No peritoneal signs. Musculoskeletal: +marked redness edema and blackish discoloarion of left great toe and fore foot Skin: no rash Hem/Lymphatic: No palpable cervical or supraclavicular nodes. No lymphangitis Psych: no agitated Neurological: alert oriented moving all extremities - Constitutional Vitals: Vital Signs Temp Pulse Resp BP Pulse Ox 98.5 F 86 16 117/72 93 09/10/19 04:32 09/10/19 09:24 09/10/19 04:32 09/10/19 09:24 09/10/19 08:37 Temperature -Last 24 Hours Temperature 98.5 F Temperature 99.0 F Temperature 99.7 F - Labs CBC & Chem 7: 09/10/19 05:32 09/10/19 05:32 Labs: Abnormal lab results 0209/09/19 09/09/19 Range/Units 11:25 16:47 21:17 WBC (4.5-11.0) K/mm3 RBC (3.65-5.03) M/mm3 Hgb (11.8-15.2) gm/dl Hct (35.5-45.6) % MCV (84-94) fl MCH (28-32) pg RDW (13.2-15.2) % Plt Count (140-440) K/mm3 Sodium (137-145) mmol/L Chloride (98-107) mmol/L Glucose (75-100) mg/dL POC Glucose 186 H 232 H 223 H (70-105) Calcium (8.4-10.2) mg/dL Crossmatch 09/10/19 09/10/19 09/10/19 Range/Units 05:32 05:32 07:49 WBC 11.9 H (4.5-11.0) K/mm3 RBC 2.74 L (3.65-5.03) M/mm3 Hgb 6.9 L (11.8-15.2) gm/dl Hct 21.2 L (35.5-45.6) % MCV 78 L (84-94) fl MCH 25 L (28-32) pg RDW 16.4 H (13.2-15.2) % Plt Count 467 H (140-440) K/mm3 Sodium 134 L (137-145) mmol/L Chloride 93.3 L (98-107) mmol/L Glucose 186 H (75-100) mg/dL POC Glucose 203 H (70-105) Calcium 8.2 L (8.4-10.2) mg/dL Crossmatch 09/10/19 Range/Units 08:34 WBC (4.5-11.0) K/mm3 RBC (3.65-5.03) M/mm3 Hgb (11.8-15.2) gm/dl Hct (35.5-45.6) % MCV (84-94) fl MCH (28-32) pg RDW (13.2-15.2) % Plt Count (140-440) K/mm3 Sodium (137-145) mmol/L Chloride (98-107) mmol/L Glucose (75-100) mg/dL POC Glucose (70-105) Calcium (8.4-10.2) mg/dL Crossmatch See Detail
--- NOTE | 2019-09-10 11:21 | XRay Report ---
CHEST 2 VIEWS INDICATION: pneumonia, severe sepsis. COMPARISON: None. FINDINGS: Support devices: None. Heart: Within normal limits. Pulmonary vasculature: Normal. Lungs/pleura: Lungs are normally expanded and clear. No airspace disease or pleural effusion. There i s respiratory motion on the lateral view. No pneumothorax. Additional findings: None. IMPRESSION: 1. No radiographic evidence of pneumonia. 2. No acute finding. Signer Name: Kyle Kelsey MD Signed: 09/10/2019 11:17 AM Workstation Name: [id number]
[2019-09-10] MEDS ORDERED: SODIUM CHLORIDE 0.9% 500 ML 500 ML IV NR (11:22)
[2019-09-10] MEDS ORDERED: SODIUM HYPOCHLORITE, DAKIN'S FULL STRENGTH (0.5%) 473 ML TOPICAL SOLN TP PRN (12:00)
--- NOTE | 2019-09-10 12:18 | Vascular Lab Report ---
ULTRASOUND LOWER EXTREMITY ARTERIAL DOPPLER, LEFT INDICATION: left foot ulcer FINDINGS: Left Leg Arterial Systolic Velocities (cm/sec): [employer]ER = 70.8 cm/s triphasic waveform SFA proximal = 74.7 cm/s triphasic waveform SFA mid = 1 35 cm/s triphasic waveform SFA distal = 109.9 cm/s triphasic waveform Popliteal = 105 cm/s with monophasic flow Posterior tibial = 93 cm/s with monophasic flow Dorsalis pedis = 134.7 cm/s with monophasic flow Anterior tibial = 22 cm/s with monophasic flow Ankle Brachial Index: Not performed IMPRESSION: 1. Abnormal velocities with monophasic flow consistent with [id number] subtrifurcation peripher al vascular disease Signer Name: Andrey Kam MD Signed: 09/10/2019 12:14 PM Workstation Name: [id number]
--- NOTE | 2019-09-10 13:34 | Magnetic Resonance Report ---
MRI left foot with and without contrast HISTORY: Osteomyelitis left great toe. TECHNIQUE: 20 mL of MultiHance was given intravenously. COMPARISON: Left foot radiographs from 2 days prior FINDINGS: There is abnormal low T1 signal, bone marrow edema, and enhancement involving primarily th e distal phalanx of the great toe but also extending into the proximal phalanx. Overall, findings are centered at the IP joint, with extensive surrounding soft tissue swelling, skin induration, subcutan eous gas, and multiloculated abscess formation. Abscess formation extends from the tip of the toe praneeth rly to the base of the great toe metatarsal and also along the dorsal aspect of the second toe to the level of the mid shaft of the metatarsal. No other areas of osteomyelitis identified. Underlying deg enerative changes are present throughout the visualized forefoot. IMPRESSION: Acute osteomyelitis centered at the great toe IP joint involving primarily the distal ph alanx but also the proximal phalanx. There does not appear to be extension proximal to the MTP joint. There is also extensive cellulitis and abscess formation extending more proximally as described xiomara solares Signer Name: Ron Dasilva MD Signed: 09/10/2019 1:30 PM Workstation Name: [id number]
--- NOTE | 2019-09-10 13:47 | Anesthesia Consultation ---
Anesthesia Consult and Med Hx Date of service: 09/11/19 - Airway Anesthetic Teeth Evaluation: Good ROM Head & Neck: Adequate Mental/Hyoid Distance: Inadequate Mallampati Class: Class II Intubation Access Assessment: Probably Good - Pulmonary Exam CTA: Yes - Pre-Operative Health Status ASA Pre-Surgery Classification: ASA2 Proposed Anesthetic Plan: General, MAC - Pulmonary Hx Smoking: No Hx Asthma: No SOB: No COPD: No Hx Pneumonia: No - Cardiovascular System Hx Hypertension: Yes Hx Heart Attack/AMI: No - Central Nervous System Hx Psychiatric Problems: No - Gastrointestinal Hx Gastroesophageal Reflux Disease: No - Endocrine Hx Renal Disease: Yes (Chronic Renal Disease) Hx End Stage Renal Disease: No Hx Liver Disease: No Hx Non-Insulin Dependent Diabetes: Yes Hx Hypothyroidism: No Hx Hyperthyroidism: No - Other Systems Hx Alcohol Use: No Hx Substance Use: No Hx Obesity: No - Additional Comments Anesthesia Medical History Comments: Denied previous anesthesia complication
[2019-09-10] MEDS: oxyCODONE /ACETAMINOPHEN 5-325MG TAB PO PRN (19:50)
[2019-09-10] MEDS: VANCOMYCIN 1,500 MG in SODIUM CHLORIDE 0.9% 500 ML 500 ML IV SCH (23:00)
[2019-09-11] MEDS: metroNIDAZOLE/NS 500 MG/100 ML 500 MG/100 ML BAG IV SCH (05:45)
[2019-09-11] MEDS: GABAPENTIN 400 MG CAP PO SCH ×4 (05:47→23:57)
[2019-09-11 06:49] LABS: Hematocrit 25.9 % (35.5-45.6); Hemoglobin 8.7 gm/dl (11.8-15.2); Mean Corpuscular HGB Conc 34 % (32-34); Mean Corpuscular Volume 78 fl (84-94); Platelet Count 572 K/mm3 (140-440); Red Blood Count 3.33 M/mm3 (3.65-5.03); Red Cell Distribution Width 16.1 % (13.2-15.2)
--- NOTE | 2019-09-11 08:11 | Consultation ---
History of Present Illness - Reason for Consult Consult date: 09/11/19 left great toe ulcer Requesting physician: DEUCE STEPHEN - History of Present Illness HPI: 54-year-old gentleman with diabetes mellitus presents with non-healing left great toe ulcer. The patient denies issues with lower extremity claudication. The patient has not had any intervention performed for arterial insufficiency in the past. The patient had noninvasive arterial studies performed during this hospitalization that was concerning for PAD. We have been consulted for evaluation and possible intervention. The patient is scheduled to undergo left great toe amputation today. The patient has never smoked and denies any TIA/strokelike symptoms. ROS: As per HPI, otherwise negative PE: NAD, alert and oriented x3 Non-labored respirations Regular, rate and rhythm Palpable femoral pulses bilaterally Both feet seem warm and well-perfused Left great toe ulcer noted Noninvasive arterial studies reviewed Plan: 54-year-old gentleman with diabetic foot ulcer Arterial studies reviewed and demonstrates likely mild arterial insufficiency No need for immediate intervention at this time Patient to undergo left great toe amputation today Continue antibiotics per infectious disease We will have patient follow-up in our clinic in 1 to 2 weeks Past History Past Medical History: anemia, diabetes, hypertension Medications and Allergies Allergies Allergy/AdvReac Type Severity Reaction Status Date / Time No Known Allergies Allergy Verified 07/21/19 16:23 Home Medications Medication Instructions Recorded Confirmed Last Taken Type Ferrous Sulfate [Ferrous Sulfate 324 mg PO DAILY 09/08/19 09/08/19 Unknown History 324 MG] Gabapentin [Neurontin] 400 mg PO Q6H 09/08/19 09/08/19 Unknown History amLODIPine 10 mg PO QDAY 09/08/19 09/08/19 Unknown History glipiZIDE [Glucotrol] 20 mg PO BID 09/08/19 09/08/19 Unknown History Active Meds: Active Medications Acetaminophen (Tylenol) 650 mg PO Q4H PRN PRN Reason: Pain MILD(1-3)/Fever >100.5/LAMBERT Last Admin: 09/10/19 09:43 Dose: 650 mg Documented by: Amlodipine Besylate (Amlodipine) 10 mg PO QDAY [facility] Last Admin: 09/10/19 09:24 Dose: 10 mg Documented by: Dextrose (D50w (25gm) Syringe) 50 ml IV Q30MIN PRN; Protocol PRN Reason: Hypoglycemia Ferrous Sulfate (Feosol) 325 mg PO QDAY [facility] Last Admin: 09/10/19 09:24 Dose: 325 mg Documented by: Gabapentin (Gabapentin) 400 mg PO Q6HR [facility] Last Admin: 09/11/19 05:47 Dose: 400 mg Documented by: Heparin Sodium (Porcine) (Heparin) 5,000 unit SUB-Q Q12HR [facility] Last Admin: 09/10/19 21:44 Dose: Not Given Documented by: Sodium Chloride (Nacl 0.45% 1000 Ml) 1,000 mls @ 100 mls/hr IV DIRECT [facility] Last Admin: 09/10/19 02:23 Dose: 100 mls/hr Documented by: Sodium Chloride (Nacl 0.9% 500 Ml) 500 mls @ 0 mls/hr IV ONCE NR Stop: 09/11/19 11:21 Insulin Human Lispro (Humalog) 0 unit SUB-Q QHS [facility]; Protocol Last Admin: 09/09/19 22:07 Dose: 3 unit Documented by: Insulin Human Lispro (Humalog) 0 unit SUB-Q AC [facility]; Protocol Last Admin: 09/10/19 17:53 Dose: 3 unit Documented by: Morphine Sulfate (Morphine) 2 mg IV Q4H PRN PRN Reason: Pain, Moderate (4-6) Ondansetron HCl (Zofran) 4 mg IV Q8H PRN PRN Reason: Nausea And Vomiting Oxycodone/Acetaminophen (Percocet 5/325) 1 tab PO Q4H PRN PRN Reason: Pain, Moderate (4-6) Last Admin: 09/10/19 19:50 Dose: 1 tab Documented by: Sodium Chloride (Sodium Chloride Flush Syringe 10 Ml) 10 ml IV BID [facility] Last Admin: 09/10/19 21:54 Dose: 10 ml Documented by: Sodium Chloride (Sodium Chloride Flush Syringe 10 Ml) 10 ml IV PRN PRN PRN Reason: LINE FLUSH Sodium Hypochlorite (Dakin's Full Strength) 1 applic TP Q12H PRN PRN Reason: Wound Care Exam - Constitutional Vitals: Temp Pulse Resp BP Pulse Ox 99.1 F 84 20 138/80 93 09/11/19 06:04 09/11/19 06:04 09/11/19 06:04 09/11/19 06:04 09/11/19 06:04 Results - Labs CBC & Chem 7: 09/11/19 05:49 09/10/19 05:32 Labs: Abnormal lab results 09/10/19 09/10/19 09/10/19 Range/Units 08:34 16:28 22:25 RBC (3.65-5.03) M/mm3 Hgb (11.8-15.2) gm/dl Hct (35.5-45.6) % MCV (84-94) fl MCH (28-32) pg RDW (13.2-15.2) % Plt Count (140-440) K/mm3 POC Glucose 218 H 187 H (70-105) Crossmatch See Detail 09/11/19 Range/Units 05:49 RBC 3.33 L (3.65-5.03) M/mm3 Hgb 8.7 L (11.8-15.2) gm/dl Hct 25.9 L (35.5-45.6) % MCV 78 L (84-94) fl MCH 26 L (28-32) pg RDW 16.1 H (13.2-15.2) % Plt Count 572 H (140-440) K/mm3 POC Glucose (70-105) Crossmatch
[2019-09-11] MEDS: INSULIN LISPRO 100 UNIT/ML SUB-Q SCH ×4 (09:40→23:57)
--- NOTE | 2019-09-11 09:54 | Progress Note ---
Assessment and Plan Cultures: Blood culture 09/08/2019 Group B Strep Wound culture 09/08/2019 Group B Strep and GNR Assessment/plan: 54 y/o male with a history of uncontrolled diabetes, chronic neuropathy and recurrent chronic diabetic ulcer in the right foot admitted on 09/08/2019 due to worsening left great toe wound and discoloration extending to the forefoot: #Severe sepsis: improving; etiology left toe diabetic ulcer with osteomyeltis +/- GPC bacreremia #Strep group B bacteremia: blood culture growing 2 of 4 bottles. Source ? left foot infection #Left toe diabetic ulcer with osteomyeltis: early gangrene. XR foot with left great toe edema and osteal lytic changes at the proximal phalanx and metatarsal. MRI with acute osteomyelitis of toe, cellulitis and abscess #JYOTI: renally adjusted abx, improving #Diabetes uncontrolled #Presumed pneumonia: has been coughing for a week. CXR with bibasilar airspace disease ? #PVD with not significant stenosis Recommendations: to have toe amputation f/u repeat blood culture obtain TTE - pending surgery on board stop cefepime, metronidazole and vancomycin start unasyn IV Will follow. D/W pharm MD Shann[facility] Subjective Date of service: 09/11/19 Principal diagnosis: left foot diabetes wound infection Interval history: Reports feeling better, no fever, no pain, still coughing Objective - Exam Narrative Exam: Constitutional: alert in NAD pleasant Head, Ears, Nose: Normocephalic, atraumatic. External ears, nose normal Oral: Clear OP Neck: no JVD no masses Cardiovascular: RRR Respiratory: bibasilar crackles GI: Soft, non-tender; bowel sounds normal. No peritoneal signs. Musculoskeletal: +marked redness edema and blackish discoloarion of left great toe and fore foot Skin: no rash Hem/Lymphatic: No palpable cervical or supraclavicular nodes. No lymphangitis Psych: no agitated Neurological: alert oriented moving all extremities - Constitutional Vitals: Vital Signs Temp Pulse Resp BP Pulse Ox 99.1 F 84 20 138/80 95 09/11/19 06:04 09/11/19 06:04 09/11/19 06:04 09/11/19 06:04 09/11/19 08:13 Temperature -Last 24 Hours Temperature 99.1 F Temperature 98.6 F Temperature 98.0 F Temperature 98.2 F Temperature 98.4 F Temperature 98.2 F Temperature 98.2 F Temperature 98.0 F Temperature 98.3 F Temperature 98.7 F Temperature 99.3 F Temperature 98.9 F Temperature 99 F Temperature 98.3 F Temperature 98.5 F - Labs CBC & Chem 7: 09/11/19 05:49 09/10/19 05:32 Labs: Abnormal lab results 09/10/19 09/10/19 09/10/19 Range/Units 08:34 16:28 22:25 RBC (3.65-5.03) M/mm3 Hgb (11.8-15.2) gm/dl Hct (35.5-45.6) % MCV (84-94) fl MCH (28-32) pg RDW (13.2-15.2) % Plt Count (140-440) K/mm3 POC Glucose 218 H 187 H (70-105) Crossmatch See Detail 09/11/19 Range/Units 05:49 RBC 3.33 L (3.65-5.03) M/mm3 Hgb 8.7 L (11.8-15.2) gm/dl Hct 25.9 L (35.5-45.6) % MCV 78 L (84-94) fl MCH 26 L (28-32) pg RDW 16.1 H (13.2-15.2) % Plt Count 572 H (140-440) K/mm3 POC Glucose (70-105) Crossmatch
[2019-09-11] MEDS: AMPICILLIN/SULBACTA 3GM/100ML 3 GM/100 ML BAG IV SCH ×3 (10:02→22:49)
[2019-09-11] MEDS: HEPARIN 5,000 UNIT/1 ML VIAL SUB-Q SCH ×2 (10:08→22:49)
--- NOTE | 2019-09-11 10:53 | Progress Note ---
Assessment and Plan Assessment and plan: Sepsis due to cellulitis, osteo left foot Jackeline hemolytic Strep Group B Admitted to med/surg Cont iv Antibiotics ID following Cellulitis and osteomyelitis of 1st toe left foot Status post Vanco and Zosyn in the emergency room, continue these antibiotic Follow cultures, check wound culture, consulted infectious disease physician. I discussed with Dr. Argueta Surg consulted- Dr. Babin For surgery today Hyponatremia Continue IV fluids, monitor sodium level Anemia Repeat CBC, patient denies any GI bleed Continue outpatient iron therapy, send stool for testing Diabetes mellitus type 2 Check fingersticks and start insulin sliding scale Lantus Acute on chronic kidney disease due to vasomotor nephropathy Continue IV fluid, monitor kidney function Hypertension Continue Norvasc 09/09: Pain , ulcer left foot. ID Physician to see. continue iv Antibiotics. 09/10 still pain left 1st toe. patient seen by Dr. babin, Surgeon. For MRI, surg tomorrow. 09/11 For surgery today. Blood cultures with Beta hemolytic strep group B. Started on Unasyn. Repeat blood cultures drawn yesterday 09/10 History Interval history: Pain, ulcer left foot Hospitalist Physical - Physical exam Narrative exam: GEN: Not in acute distress, lying in bed HEENT: Normocephalic, atraumatic, Neck: supple, No JVD Lungs: Clear to auscultation ,no wheeze, heart;S1 and S2 reg, no murmurs, rubs or gallop Abd:soft, non tender , non distended, normal bowel sounds Ext: Ulcer left 1st toe left foot covered with dressing, no clubbing, Neuro: Awake,alert, oriented X 3, no focal neurological signs - Constitutional Vitals: Temp Pulse Resp BP Pulse Ox 99.1 F 84 20 138/80 95 09/11/19 06:04 09/11/19 06:04 09/11/19 06:04 09/11/19 06:04 09/11/19 08:13 Results - Labs CBC & Chem 7: 09/11/19 05:49 09/10/19 05:32 Labs: Laboratory Last Values WBC 11.0 K/mm3 (4.5-11.0) 09/11/19 05:49 RBC 3.33 M/mm3 (3.65-5.03) L 09/11/19 05:49 Hgb 8.7 gm/dl (11.8-15.2) L 09/11/19 05:49 Hct 25.9 % (35.5-45.6) L 09/11/19 05:49 MCV 78 fl (84-94) L 09/11/19 05:49 MCH 26 pg (28-32) L 09/11/19 05:49 MCHC 34 % (32-34) 09/11/19 05:49 RDW 16.1 % (13.2-15.2) H 09/11/19 05:49 Plt Count 572 K/mm3 (140-440) H 09/11/19 05:49 Lymph % (Auto) 6.1 % (13.4-35.0) L 09/09/19 04:35 [place] % (Auto) 8.6 % (0.0-7.3) H 09/09/19 04:35 Eos % (Auto) 3.2 % (0.0-4.3) 09/09/19 04:35 Baso % (Auto) 0.5 % (0.0-1.8) 09/09/19 04:35 Lymph # 1.0 K/mm3 (1.2-5.4) L 09/09/19 04:35 [place] # 1.4 K/mm3 (0.0-0.8) H 09/09/19 04:35 Eos # 0.5 K/mm3 (0.0-0.4) H 09/09/19 04:35 Baso # 0.1 K/mm3 (0.0-0.1) 09/09/19 04:35 Seg Neutrophils % 81.6 % (40.0-70.0) H 09/09/19 04:35 Seg Neutrophils # 13.4 K/mm3 (1.8-7.7) H 09/09/19 04:35 Sodium 134 mmol/L (137-145) L 09/10/19 05:32 Potassium 4.1 mmol/L (3.6-5.0) 09/10/19 05:32 Chloride 93.3 mmol/L (98-107) L 09/10/19 05:32 Carbon Dioxide 26 mmol/L (22-30) 09/10/19 05:32 Anion Gap 19 mmol/L 09/10/19 05:32 BUN 20 mg/dL (9-20) 09/10/19 05:32 Creatinine 1.4 mg/dL (0.8-1.5) 09/10/19 05:32 Estimated GFR 53 ml/min 09/10/19 05:32 BUN/Creatinine Ratio 14 % 09/10/19 05:32 Glucose 186 mg/dL (75-100) H 09/10/19 05:32 POC Glucose 183 (70-105) H 09/11/19 08:30 Hemoglobin A1c 10.0 % (4-6) H 09/09/19 09:08 Lactic Acid 1.60 mmol/L (0.7-2.0) 09/08/19 20:30 Calcium 8.2 mg/dL (8.4-10.2) L 09/10/19 05:32 Total Bilirubin 0.50 mg/dL (0.1-1.2) 09/08/19 18:45 AST 30 units/L (5-40) 09/08/19 18:45 ALT 32 units/L (7-56) 09/08/19 18:45 Alkaline Phosphatase 414 units/L (35-129) H 09/08/19 18:45 Total Protein 7.9 g/dL (6.3-8.2) 09/08/19 18:45 Albumin 3.0 g/dL (3.9-5) L 09/08/19 18:45 Albumin/Globulin Ratio 0.6 % 09/08/19 18:45 Blood Type O POSITIVE 09/10/19 08:34 Antibody Screen Negative 09/10/19 08:34 Crossmatch See Detail 09/10/19 08:34 Active Medications - Current Medications Current Medications: Generic Name Dose Route Start Last Admin Trade Name Freq PRN Reason Stop Dose Admin Acetaminophen 650 mg 09/08/19 23:47 09/10/19 09:43 Tylenol PO 650 mg Q4H PRN Administration Pain MILD(1-3)/Fever >100.5/LAMBERT Amlodipine Besylate 10 mg 09/09/19 10:00 09/10/19 09:24 Amlodipine PO 10 mg QDAY GABINO Administration Dextrose 50 ml 09/09/19 08:36 D50w (25gm) Syringe IV Q30MIN PRN Hypoglycemia Protocol Ferrous Sulfate 325 mg 09/09/19 10:00 09/10/19 09:24 Feosol PO 325 mg QDAY GABINO Administration Gabapentin 400 mg 09/09/19 01:00 09/11/19 05:47 Gabapentin PO 400 mg Q6HR GABINO Administration Heparin Sodium (Porcine) 5,000 unit 09/09/19 18:00 09/11/19 10:08 Heparin SUB-Q 5,000 unit Q12HR GABINO Administration Sodium Chloride 1,000 mls @ 100 mls/hr 09/08/19 23:45 09/10/19 02:23 Nacl 0.45% 1000 Ml IV 100 mls/hr DIRECT GABINO Administration Sodium Chloride 500 mls @ 0 mls/hr 09/10/19 11:22 Nacl 0.9% 500 Ml IV 09/11/19 11:21 ONCE NR As Directed Ampicillin Sodium/Sulbactam Sodium 3 gm in 100 mls @ 200 mls/hr 09/11/19 09:00 09/11/19 10:02 Unasyn/Ns 3 Gm/100 Ml IV 200 mls/hr Q6H GABINO Administration Protocol Insulin Human Lispro 0 unit 09/09/19 22:00 09/09/19 22:07 Humalog SUB-Q 3 unit QHS GABINO Administration Protocol Insulin Human Lispro 0 unit 09/09/19 09:00 09/11/19 09:40 Humalog SUB-Q 3 unit AC GABINO Administration Protocol Morphine Sulfate 2 mg 09/08/19 23:47 Morphine IV Q4H PRN Pain, Moderate (4-6) Ondansetron HCl 4 mg 09/08/19 23:47 Zofran IV Q8H PRN Nausea And Vomiting Oxycodone/Acetaminophen 1 tab 09/09/19 00:24 09/10/19 19:50 Percocet 5/325 PO 1 tab Q4H PRN Administration Pain, Moderate (4-6) Sodium Chloride 10 ml 09/09/19 10:00 09/11/19 10:03 Sodium Chloride Flush Syringe 10 Ml IV Not Given BID GABINO Sodium Chloride 10 ml 09/08/19 23:47 Sodium Chloride Flush Syringe 10 Ml IV PRN PRN LINE FLUSH Sodium Hypochlorite 1 applic 09/10/19 12:00 Dakin's Full Strength TP Q12H PRN Wound Care
[2019-09-11] MEDS ORDERED: LIDOCAINE MPF (2%) 20 MG/1 ML VIAL 5 ML ONE (12:05)
[2019-09-11] MEDS ORDERED: fentaNYL 100 MCG/2 ML INJ ONE (12:06)
[2019-09-11] MEDS ORDERED: propofoL 200 MG/20 ML VIAL IV ONE (12:06)
[2019-09-11] MEDS ORDERED: SODIUM CHLORIDE 0.9% 100 ML ONE ×2 (12:33→13:58)
[2019-09-11] MEDS ORDERED: ONDANSETRON 4 MG/2 ML INJ ONE (13:05)
[2019-09-11] MEDS ORDERED: SODIUM CHLORIDE 0.9% IRR 1,500 ML BOTTLE IR ONE (13:14)
--- NOTE | 2019-09-11 15:12 | Procedure Note ---
Date of procedure: 09/11/19 Pre-op diagnosis: Osteomyelitis, left great toe Post-op diagnosis: same (with abscess) Procedure: 1) I&D of left great toe abscess 2) TMA of left great toe Anesthesia: other (LMA) Surgeon: HAO DAY Estimated blood loss: minimal Pathology: list (1) Left great toe and metatarsal head 2) Deep C&S) Specimen disposition: to lab Condition: stable Disposition: PACU
[2019-09-11] MEDS: amLODIPine 10 MG TAB PO SCH (15:25)
[2019-09-11] MEDS: FERROUS SULFATE 325 MG TAB PO SCH (15:26)
--- NOTE | 2019-09-11 15:40 | Post Anesthesia Evaluation ---
- Post Anesthesia Evaluation Patient Participated: Yes Airway Patent: Yes Stable Respiratory Function: Yes Nausea/Vomiting: No Temp > 96.8F: Yes Pain Manageable: Yes Adequeate Hydration: Yes Anesthesia Complications: Yes (see below) Other Comments: Patient complained of "bump" under his tongue which he had not noticed prior to surgery. On examination, patient noted to have apparent tear to lingual frenulum without active bleeding. Explained to patient that this may have been associated with LMA placement. Patient reported only mild pain and no significant distress from the lesion. Tolerating fluids without difficulty. Will follow up with patient tomorrow.
[2019-09-11] MEDS: SODIUM CHLORIDE 0.45% 1000 ML 1,000 ML IV SCH (18:57)
[2019-09-11] MEDS: oxyCODONE /ACETAMINOPHEN 5-325MG TAB PO PRN (20:55)
[2019-09-12] MEDS: INSULIN LISPRO 100 UNIT/ML SUB-Q SCH ×5 (00:02→22:18)
[2019-09-12] MEDS: SODIUM CHLORIDE 0.45% 1000 ML 1,000 ML IV SCH ×2 (02:58→16:54)
[2019-09-12] MEDS: AMPICILLIN/SULBACTA 3GM/100ML 3 GM/100 ML BAG IV SCH ×2 (02:58→09:23)
[2019-09-12] MEDS: GABAPENTIN 400 MG CAP PO SCH ×3 (05:55→17:04)
[2019-09-12 07:09] LABS: Hematocrit 26.9 % (35.5-45.6); Hemoglobin 9.1 gm/dl (11.8-15.2); Mean Corpuscular HGB Conc 34 % (32-34); Mean Corpuscular Volume 79 fl (84-94); Platelet Count 623 K/mm3 (140-440); Red Blood Count 3.42 M/mm3 (3.65-5.03); Red Cell Distribution Width 16.1 % (13.2-15.2)
[2019-09-12 07:30] LABS: Calcium 8.1 mg/dL (8.4-10.2)
[2019-09-12] MEDS: oxyCODONE /ACETAMINOPHEN 5-325MG TAB PO PRN (07:37)
[2019-09-12] MEDS: FERROUS SULFATE 325 MG TAB PO SCH (09:24)
[2019-09-12] MEDS: amLODIPine 10 MG TAB PO SCH (09:24)
[2019-09-12] MEDS: HEPARIN 5,000 UNIT/1 ML VIAL SUB-Q SCH ×2 (09:25→21:20)
--- NOTE | 2019-09-12 10:33 | Event Note ---
Date: 09/12/19 Visited patient on the floor POD 1 s/p great toe amputation. He reports surgical pain is well controlled. Frenulum tear is still sore but he has no difficulty eating or drinking and there has been no bleeding. No additional complaints or concerns regarding previous anesthetic. On exam, wound appears clean without signs of bleeding or food particles. Patient advised that healing may take several days and that he should make every effort to keep the area clean by rinsing after eating and inspecting for food particles. He was also instructed to call the anesthesia department or to return to the ED if the wound does not improve or if there is bleeding, foul odor, increased pain, or inability to tolerate PO. He verbalized understanding.
--- NOTE | 2019-09-12 13:10 | Progress Note ---
Assessment and Plan Cultures: Blood culture 09/08/2019 Group B Strep Wound culture 09/08/2019 Group B Strep and GNR Blood culture 09/10/2019 negative today Assessment/plan: 54 y/o male with a history of uncontrolled diabetes, chronic neuropathy and recurrent chronic diabetic ulcer in the right foot admitted on 09/08/2019 due to worsening left great toe wound and discoloration extending to the forefoot: #Severe sepsis: Resolved; etiology left toe diabetic ulcer with osteomyeltis +/- GPC bacreremia #Strep group B bacteremia: blood culture growing 2 of 4 bottles. Source ? left foot infection #Left toe diabetic ulcer with osteomyeltis: early gangrene. XR foot with left great toe edema and osteal lytic changes at the proximal phalanx and metatarsal. MRI with acute osteomyelitis of toe, cellulitis and abscess, status post I&D of left great toe abscess and TMA of left great toe on 09/11/2019 #JYOTI: renally adjusted abx, resolved #Diabetes uncontrolled #Presumed pneumonia: has been coughing for a week. CXR with bibasilar airspace disease ? #PVD with not significant stenosis Recommendations: to have toe amputation f/u repeat blood culture obtain TTE - pending surgery on board Stop Unasyn Start ceftriaxone 2 g IV once a day Anticipate to discharge on ceftriaxone 2 g IV once a day total 14-day until September 24, 2019. Order sent to assistant case manager. Place a midline for IV antibiotic ID clinic follow-up in 1 week to review pathology, president celebrity acquistion notified Okay to discharge home after midline placement and IV antibiotics arrangement Will follow. I will be covering this weekend, call me for any question, Dr. Garces rounding on Sunday Arminda Argueta MD [facility] ([facility] Subjective Date of service: 09/12/19 Principal diagnosis: left foot diabetes wound infection Interval history: Reports feeling better, no fever, no pain, cough is better. Went to the OR yesterday for Review of system: Denies any nausea, no vomiting, diarrhea, fever, chill, rash Objective - Exam Narrative Exam: Constitutional: alert in NAD pleasant Head, Ears, Nose: Normocephalic, atraumatic. External ears, nose normal Oral: Clear OP Neck: no JVD no masses Cardiovascular: RRR Respiratory: bibasilar crackles GI: Soft, non-tender; bowel sounds normal. No peritoneal signs. Musculoskeletal: + Left foot with surgical dressing Skin: no rash Hem/Lymphatic: No palpable cervical or supraclavicular nodes. No lymphangitis Psych: no agitated Neurological: alert oriented moving all extremities - Constitutional Vitals: Vital Signs Temp Pulse Resp BP Pulse Ox 98.5 F 83 20 131/79 93 09/12/19 06:09 09/12/19 06:09 09/12/19 06:09 09/12/19 06:09 09/12/19 06:09 Temperature -Last 24 Hours Temperature 98.5 F Temperature 98.7 F Temperature 98.2 F Temperature 98.4 F Temperature 97.7 F - Labs CBC & Chem 7: 09/12/19 06:33 09/12/19 06:33 Labs: Abnormal lab results 09/11/19 09/11/19 09/11/19 Range/Units 12:06 14:22 17:59 RBC (3.65-5.03) M/mm3 Hgb (11.8-15.2) gm/dl Hct (35.5-45.6) % MCV (84-94) fl MCH (28-32) pg RDW (13.2-15.2) % Plt Count (140-440) K/mm3 Sodium (137-145) mmol/L Chloride (98-107) mmol/L Glucose (75-100) mg/dL POC Glucose 146 H 143 H 254 H (70-105) Calcium (8.4-10.2) mg/dL 09/11/19 09/12/19 09/12/19 Range/Units 23:54 06:33 06:33 RBC 3.42 L (3.65-5.03) M/mm3 Hgb 9.1 L (11.8-15.2) gm/dl Hct 26.9 L (35.5-45.6) % MCV 79 L (84-94) fl MCH 27 L (28-32) pg RDW 16.1 H (13.2-15.2) % Plt Count 623 H (140-440) K/mm3 Sodium 136 L (137-145) mmol/L Chloride 96.7 L (98-107) mmol/L Glucose 195 H (75-100) mg/dL POC Glucose 222 H (70-105) Calcium 8.1 L (8.4-10.2) mg/dL 09/12/19 09/12/19 Range/Units 09:07 11:26 RBC (3.65-5.03) M/mm3 Hgb (11.8-15.2) gm/dl Hct (35.5-45.6) % MCV (84-94) fl MCH (28-32) pg RDW (13.2-15.2) % Plt Count (140-440) K/mm3 Sodium (137-145) mmol/L Chloride (98-107) mmol/L Glucose (75-100) mg/dL POC Glucose 197 H 149 H (70-105) Calcium (8.4-10.2) mg/dL
--- NOTE | 2019-09-12 13:30 | Progress Note ---
Assessment and Plan Assessment and plan: Sepsis due to cellulitis, osteo left foot Jackeline hemolytic Strep Group B Admitted to med/surg Cont iv Antibiotics ID following Cellulitis, iabetic foot infection and osteomyelitis of 1st toe left foot Status post Vanco and Zosyn in the emergency room, continue these antibiotic Follow cultures, check wound culture, consulted infectious disease physician. I discussed with Dr. Argueta Surg consulted- Dr. Babin For surgery today PAD left lower ext Vasc surg following Hyponatremia Continue IV fluids, monitor sodium level Anemia Repeat CBC, patient denies any GI bleed Continue outpatient iron therapy, send stool for testing Diabetes mellitus type 2 Check fingersticks and insulin sliding scale Acute on chronic kidney disease due to vasomotor nephropathy Continue IV fluid, monitor kidney function Hypertension Continue Norvasc 09/09: Pain , ulcer left foot. ID Physician to see. continue iv Antibiotics. 09/10 still pain left 1st toe. patient seen by Dr. babin, Surgeon. For MRI, surg tomorrow. 09/11 For surgery today. Blood cultures with Beta hemolytic strep group B. Started on Unasyn. Repeat blood cultures drawn yesterday 09/10 09/12 Patient had TMA left big toe yesterday. I discussed with Dr. Argueta. For midline placement and iv Ceftriaxone for 14 days, to end September 23 History Interval history: osteomyelitis left foot s/p TMA of left great toe Hospitalist Physical - Physical exam Narrative exam: GEN: Not in acute distress, lying in bed, obese HEENT: Normocephalic, atraumatic, Neck: supple, No JVD Lungs: Clear to auscultation ,no wheeze, heart;S1 and S2 reg, no murmurs, rubs or gallop Abd:soft, non tender , non distended, normal bowel sounds Ext: Dressing over left foot s/p TMA left 1st toe, no clubbing, Neuro: Awake,alert, oriented X 3, no focal neurological signs - Constitutional Vitals: Temp Pulse Resp BP Pulse Ox 98.5 F 83 20 131/79 93 09/12/19 06:09 09/12/19 06:09 09/12/19 06:09 09/12/19 06:09 09/12/19 06:09 Results - Labs CBC & Chem 7: 09/12/19 06:33 09/12/19 06:33 Labs: Laboratory Last Values WBC 11.0 K/mm3 (4.5-11.0) 09/12/19 06:33 RBC 3.42 M/mm3 (3.65-5.03) L 09/12/19 06:33 Hgb 9.1 gm/dl (11.8-15.2) L 09/12/19 06:33 Hct 26.9 % (35.5-45.6) L 09/12/19 06:33 MCV 79 fl (84-94) L 09/12/19 06:33 MCH 27 pg (28-32) L 09/12/19 06:33 MCHC 34 % (32-34) 09/12/19 06:33 RDW 16.1 % (13.2-15.2) H 09/12/19 06:33 Plt Count 623 K/mm3 (140-440) H 09/12/19 06:33 Lymph % (Auto) 6.1 % (13.4-35.0) L 09/09/19 04:35 [place] % (Auto) 8.6 % (0.0-7.3) H 09/09/19 04:35 Eos % (Auto) 3.2 % (0.0-4.3) 09/09/19 04:35 Baso % (Auto) 0.5 % (0.0-1.8) 09/09/19 04:35 Lymph # 1.0 K/mm3 (1.2-5.4) L 09/09/19 04:35 [place] # 1.4 K/mm3 (0.0-0.8) H 09/09/19 04:35 Eos # 0.5 K/mm3 (0.0-0.4) H 09/09/19 04:35 Baso # 0.1 K/mm3 (0.0-0.1) 09/09/19 04:35 Seg Neutrophils % 81.6 % (40.0-70.0) H 09/09/19 04:35 Seg Neutrophils # 13.4 K/mm3 (1.8-7.7) H 09/09/19 04:35 Sodium 136 mmol/L (137-145) L 09/12/19 06:33 Potassium 4.7 mmol/L (3.6-5.0) 09/12/19 06:33 Chloride 96.7 mmol/L (98-107) L 09/12/19 06:33 Carbon Dioxide 23 mmol/L (22-30) 09/12/19 06:33 Anion Gap 21 mmol/L 09/12/19 06:33 BUN 13 mg/dL (9-20) 09/12/19 06:33 Creatinine 1.3 mg/dL (0.8-1.5) 09/12/19 06:33 Estimated GFR 57 ml/min 09/12/19 06:33 BUN/Creatinine Ratio 10 % 09/12/19 06:33 Glucose 195 mg/dL (75-100) H 09/12/19 06:33 POC Glucose 149 (70-105) H 09/12/19 11:26 Hemoglobin A1c 10.0 % (4-6) H 09/09/19 09:08 Lactic Acid 1.60 mmol/L (0.7-2.0) 09/08/19 20:30 Calcium 8.1 mg/dL (8.4-10.2) L 09/12/19 06:33 Total Bilirubin 0.50 mg/dL (0.1-1.2) 09/08/19 18:45 AST 30 units/L (5-40) 09/08/19 18:45 ALT 32 units/L (7-56) 09/08/19 18:45 Alkaline Phosphatase 414 units/L (35-129) H 09/08/19 18:45 Total Protein 7.9 g/dL (6.3-8.2) 09/08/19 18:45 Albumin 3.0 g/dL (3.9-5) L 09/08/19 18:45 Albumin/Globulin Ratio 0.6 % 09/08/19 18:45 Blood Type O POSITIVE 09/10/19 08:34 Antibody Screen Negative 09/10/19 08:34 Crossmatch See Detail 09/10/19 08:34 Active Medications - Current Medications Current Medications: Generic Name Dose Route Start Last Admin Trade Name Freq PRN Reason Stop Dose Admin Acetaminophen 650 mg 09/08/19 23:47 09/10/19 09:43 Tylenol PO 650 mg Q4H PRN Administration Pain MILD(1-3)/Fever >100.5/LAMBERT Amlodipine Besylate 10 mg 09/09/19 10:00 09/12/19 09:24 Amlodipine PO 10 mg QDAY GABINO Administration Dextrose 50 ml 09/09/19 08:36 D50w (25gm) Syringe IV Q30MIN PRN Hypoglycemia Protocol Ferrous Sulfate 325 mg 09/09/19 10:00 09/12/19 09:24 Feosol PO 325 mg QDAY GABINO Administration Gabapentin 400 mg 09/09/19 01:00 09/12/19 12:24 Gabapentin PO 400 mg Q6HR GABINO Administration Heparin Sodium (Porcine) 5,000 unit 09/09/19 18:00 09/12/19 09:25 Heparin SUB-Q 5,000 unit Q12HR GABINO Administration Sodium Chloride 1,000 mls @ 100 mls/hr 09/08/19 23:45 09/12/19 02:58 Nacl 0.45% 1000 Ml IV 100 mls/hr DIRECT GABINO Administration Ceftriaxone Sodium 2 gm in 100 mls @ 200 mls/hr 09/12/19 14:00 Rocephin/Ns 2 Gm/100 Ml IV Q24HR [facility] Protocol Insulin Human Lispro 0 unit 09/09/19 22:00 09/12/19 00:02 Humalog SUB-Q 3 unit QHS GABINO Administration Protocol Insulin Human Lispro 0 unit 09/09/19 09:00 09/12/19 11:30 Humalog SUB-Q Not Given AC [facility] Protocol Morphine Sulfate 2 mg 09/08/19 23:47 Morphine IV Q4H PRN Pain, Moderate (4-6) Ondansetron HCl 4 mg 09/08/19 23:47 Zofran IV Q8H PRN Nausea And Vomiting Oxycodone/Acetaminophen 1 tab 09/09/19 00:24 09/12/19 07:37 Percocet 5/325 PO 1 tab Q4H PRN Administration Pain, Moderate (4-6) Sodium Chloride 10 ml 09/09/19 10:00 09/12/19 09:25 Sodium Chloride Flush Syringe 10 Ml IV 10 ml BID GABINO Administration Sodium Chloride 10 ml 09/08/19 23:47 Sodium Chloride Flush Syringe 10 Ml IV PRN PRN LINE FLUSH Sodium Hypochlorite 1 applic 09/10/19 12:00 Dakin's Full Strength TP Q12H PRN Wound Care
[2019-09-12] MEDS ORDERED: cefTRIAXone/NS 2 GM/100 ML 2 GM/100 ML BAG IV SCH (14:00)
[2019-09-12] MEDS: cefTRIAXone/NS 2 GM/100 ML 2 GM/100 ML BAG IV SCH (16:00)
[2019-09-12] MEDS: ACETAMINOPHEN 325 MG TAB PO PRN (21:20)
[2019-09-13] MEDS: GABAPENTIN 400 MG CAP PO SCH ×4 (00:05→17:55)
[2019-09-13] MEDS: SODIUM CHLORIDE 0.45% 1000 ML 1,000 ML IV SCH ×3 (04:22→23:36)
[2019-09-13] MEDS: INSULIN LISPRO 100 UNIT/ML SUB-Q SCH ×4 (09:36→21:43)
--- NOTE | 2019-09-13 11:47 | Progress Note ---
Assessment and Plan Assessment and plan: Sepsis due to cellulitis, osteo left foot Jackeline hemolytic Strep Group B Admitted to med/surg Cont iv Antibiotics ID following Cellulitis, iabetic foot infection and osteomyelitis of 1st toe left foot Status post Vanco and Zosyn in the emergency room, continue these antibiotic Follow cultures, check wound culture, consulted infectious disease physician. I discussed with Dr. Argueta Surg consulted- Dr. Babin For surgery today PAD left lower ext Vasc surg following Hyponatremia Continue IV fluids, monitor sodium level Anemia Repeat CBC, patient denies any GI bleed Continue outpatient iron therapy, send stool for testing Diabetes mellitus type 2 Check fingersticks and insulin sliding scale Acute on chronic kidney disease due to vasomotor nephropathy Continue IV fluid, monitor kidney function Hypertension Continue Norvasc 09/09: Pain , ulcer left foot. ID Physician to see. continue iv Antibiotics. 09/10 still pain left 1st toe. patient seen by Dr. babin, Surgeon. For MRI, surg tomorrow. 09/11 For surgery today. Blood cultures with Beta hemolytic strep group B. Started on Unasyn. Repeat blood cultures drawn yesterday 09/10 09/12 Patient had TMA left big toe yesterday. I discussed with Dr. Argueta. For midline placement and iv Ceftriaxone for 14 days, to end September 23 feels better, less foot pain. Awaiting iv Antibiotic arrangements. Medically stable for discharge. History Interval history: osteomyelitis left foot s/p TMA of left great toe Hospitalist Physical - Physical exam Narrative exam: GEN: Not in acute distress, lying in bed, obese HEENT: Normocephalic, atraumatic, Neck: supple, No JVD Lungs: Clear to auscultation ,no wheeze, heart;S1 and S2 reg, no murmurs, rubs or gallop Abd:soft, non tender , non distended, normal bowel sounds Ext: Dressing over left foot s/p TMA left 1st toe, no clubbing, Neuro: Awake,alert, oriented X 3, no focal neurological signs - Constitutional Vitals: Temp Pulse Resp BP Pulse Ox 98.8 F 73 18 128/72 97 09/13/19 06:48 09/13/19 06:48 09/13/19 06:48 09/13/19 06:48 09/13/19 06:48 Results - Labs CBC & Chem 7: 09/12/19 06:33 02/28/20 06:33 Labs: Laboratory Last Values WBC 11.0 K/mm3 (4.5-11.0) 09/12/19 06:33 RBC 3.42 M/mm3 (3.65-5.03) L 09/12/19 06:33 Hgb 9.1 gm/dl (11.8-15.2) L 09/12/19 06:33 Hct 26.9 % (35.5-45.6) L 09/12/19 06:33 MCV 79 fl (84-94) L 09/12/19 06:33 MCH 27 pg (28-32) L 09/12/19 06:33 MCHC 34 % (32-34) 09/12/19 06:33 RDW 16.1 % (13.2-15.2) H 09/12/19 06:33 Plt Count 623 K/mm3 (140-440) H 09/12/19 06:33 Lymph % (Auto) 6.1 % (13.4-35.0) L 09/09/19 04:35 [place] % (Auto) 8.6 % (0.0-7.3) H 09/09/19 04:35 Eos % (Auto) 3.2 % (0.0-4.3) 09/09/19 04:35 Baso % (Auto) 0.5 % (0.0-1.8) 09/09/19 04:35 Lymph # 1.0 K/mm3 (1.2-5.4) L 09/09/19 04:35 [place] # 1.4 K/mm3 (0.0-0.8) H 09/09/19 04:35 Eos # 0.5 K/mm3 (0.0-0.4) H 09/09/19 04:35 Baso # 0.1 K/mm3 (0.0-0.1) 09/09/19 04:35 Seg Neutrophils % 81.6 % (40.0-70.0) H 09/09/19 04:35 Seg Neutrophils # 13.4 K/mm3 (1.8-7.7) H 09/09/19 04:35 Sodium 136 mmol/L (137-145) L 09/12/19 06:33 Potassium 4.7 mmol/L (3.6-5.0) 09/12/19 06:33 Chloride 96.7 mmol/L (98-107) L 09/12/19 06:33 Carbon Dioxide 23 mmol/L (22-30) 09/12/19 06:33 Anion Gap 21 mmol/L 09/12/19 06:33 BUN 13 mg/dL (9-20) 09/12/19 06:33 Creatinine 1.3 mg/dL (0.8-1.5) 09/12/19 06:33 Estimated GFR 57 ml/min 09/12/19 06:33 BUN/Creatinine Ratio 10 % 09/12/19 06:33 Glucose 195 mg/dL (75-100) H 09/12/19 06:33 POC Glucose 216 (70-105) H 09/13/19 07:56 Hemoglobin A1c 10.0 % (4-6) H 09/09/19 09:08 Lactic Acid 1.60 mmol/L (0.7-2.0) 09/08/19 20:30 Calcium 8.1 mg/dL (8.4-10.2) L 09/12/19 06:33 Total Bilirubin 0.50 mg/dL (0.1-1.2) 09/08/19 18:45 AST 30 units/L (5-40) 09/08/19 18:45 ALT 32 units/L (7-56) 09/08/19 18:45 Alkaline Phosphatase 414 units/L (35-129) H 09/08/19 18:45 Total Protein 7.9 g/dL (6.3-8.2) 09/08/19 18:45 Albumin 3.0 g/dL (3.9-5) L 09/08/19 18:45 Albumin/Globulin Ratio 0.6 % 09/08/19 18:45 Blood Type O POSITIVE 09/10/19 08:34 Antibody Screen Negative 09/10/19 08:34 Crossmatch See Detail 09/10/19 08:34 Active Medications - Current Medications Current Medications: Generic Name Dose Route Start Last Admin Trade Name Freq PRN Reason Stop Dose Admin Acetaminophen 650 mg 09/08/19 23:47 09/12/19 21:20 Tylenol PO 650 mg Q4H PRN Administration Pain MILD(1-3)/Fever >100.5/LAMBERT Amlodipine Besylate 10 mg 02/25/20 10:00 09/12/19 09:24 Amlodipine PO 10 mg QDAY GABINO Administration Dextrose 50 ml 09/09/19 08:36 D50w (25gm) Syringe IV Q30MIN PRN Hypoglycemia Protocol Ferrous Sulfate 325 mg 09/09/19 10:00 09/12/19 09:24 Feosol PO 325 mg QDAY GABINO Administration Gabapentin 400 mg 09/09/19 01:00 09/13/19 05:47 Gabapentin PO 400 mg Q6HR GABINO Administration Heparin Sodium (Porcine) 5,000 unit 09/09/19 18:00 09/12/19 21:20 Heparin SUB-Q 5,000 unit Q12HR GABINO Administration Sodium Chloride 1,000 mls @ 100 mls/hr 09/08/19 23:45 09/13/19 04:22 Nacl 0.45% 1000 Ml IV 100 mls/hr DIRECT GABINO Administration Ceftriaxone Sodium 2 gm in 100 mls @ 200 mls/hr 09/12/19 16:00 09/12/19 16:00 Rocephin/Ns 2 Gm/100 Ml IV 09/24/19 10:29 200 mls/hr Q24HR GABINO Administration Insulin Human Lispro 0 unit 09/09/19 22:00 09/12/19 22:18 Humalog SUB-Q Not Given [facility]HS [facility] Protocol Insulin Human Lispro 0 unit 09/09/19 09:00 09/13/19 09:36 Humalog SUB-Q 3 unit AC GABINO Administration Protocol Morphine Sulfate 2 mg 09/08/19 23:47 Morphine IV Q4H PRN Pain, Moderate (4-6) Ondansetron HCl 4 mg 09/08/19 23:47 Zofran IV Q8H PRN Nausea And Vomiting Oxycodone/Acetaminophen 1 tab 09/09/19 00:24 09/12/19 07:37 Percocet 5/325 PO 1 tab Q4H PRN Administration Pain, Moderate (4-6) Sodium Chloride 10 ml 09/09/19 10:00 09/12/19 21:21 Sodium Chloride Flush Syringe 10 Ml IV 10 ml BID GABINO Administration Sodium Chloride 10 ml 09/08/19 23:47 Sodium Chloride Flush Syringe 10 Ml IV PRN PRN LINE FLUSH Sodium Hypochlorite 1 applic 09/10/19 12:00 Dakin's Full Strength TP Q12H PRN Wound Care
[2019-09-13] MEDS: FERROUS SULFATE 325 MG TAB PO SCH (13:24)
[2019-09-13] MEDS: cefTRIAXone/NS 2 GM/100 ML 2 GM/100 ML BAG IV SCH (13:24)
[2019-09-13] MEDS: HEPARIN 5,000 UNIT/1 ML VIAL SUB-Q SCH ×2 (13:25→21:42)
[2019-09-13] MEDS: amLODIPine 10 MG TAB PO SCH (13:25)
[2019-09-14] MEDS: ACETAMINOPHEN 325 MG TAB PO PRN ×2 (04:37→21:14)
[2019-09-14] MEDS: GABAPENTIN 400 MG CAP PO SCH ×5 (06:16→23:25)
[2019-09-14] MEDS: INSULIN LISPRO 100 UNIT/ML SUB-Q SCH ×4 (07:30→22:00)
[2019-09-14] MEDS: SODIUM CHLORIDE 0.45% 1000 ML 1,000 ML IV SCH (09:15)
[2019-09-14] MEDS: amLODIPine 10 MG TAB PO SCH (09:18)
[2019-09-14] MEDS: HEPARIN 5,000 UNIT/1 ML VIAL SUB-Q SCH ×2 (09:18→21:15)
[2019-09-14] MEDS: FERROUS SULFATE 325 MG TAB PO SCH (09:18)
[2019-09-14] MEDS: cefTRIAXone/NS 2 GM/100 ML 2 GM/100 ML BAG IV SCH (09:19)
--- NOTE | 2019-09-14 10:55 | Progress Note ---
Assessment and Plan Assessment and plan: Sepsis due to cellulitis, osteo left foot Jackeline hemolytic Strep Group B Admitted to med/surg Cont iv Antibiotics ID following Cellulitis, iabetic foot infection and osteomyelitis of 1st toe left foot Status post Vanco and Zosyn in the emergency room, continue these antibiotic Follow cultures, check wound culture, consulted infectious disease physician. I discussed with Dr. Argueta Surg consulted- Dr. Babin For surgery today PAD left lower ext Vasc surg following Hyponatremia Continue IV fluids, monitor sodium level Anemia Repeat CBC, patient denies any GI bleed Continue outpatient iron therapy, send stool for testing Diabetes mellitus type 2 Check fingersticks and insulin sliding scale Acute on chronic kidney disease due to vasomotor nephropathy Continue IV fluid, monitor kidney function Hypertension Continue Norvasc 09/09: Pain , ulcer left foot. ID Physician to see. continue iv Antibiotics. 09/10 still pain left 1st toe. patient seen by Dr. babin, Surgeon. For MRI, surg tomorrow. 09/11 For surgery today. Blood cultures with Beta hemolytic strep group B. Started on Unasyn. Repeat blood cultures drawn yesterday 09/10 09/12 Patient had TMA left big toe yesterday. I discussed with Dr. Argueta. For midline placement and iv Ceftriaxone for 14 days, to end September 23 feels better, less foot pain. Awaiting iv Antibiotic arrangements. Medically stable for discharge. 09/13 Patient medically stable for discharge. Awaiting home iv Antibiotic arrangements. History Interval history: osteomyelitis left foot s/p TMA of left great toe Hospitalist Physical - Physical exam Narrative exam: GEN: Not in acute distress, lying in bed, obese HEENT: Normocephalic, atraumatic, Neck: supple, No JVD Lungs: Clear to auscultation ,no wheeze, heart;S1 and S2 reg, no murmurs, rubs or gallop Abd:soft, non tender , non distended, normal bowel sounds Ext: Dressing over left foot s/p TMA left 1st toe, no clubbing, Neuro: Awake,alert, oriented X 3, no focal neurological signs - Constitutional Vitals: Temp Pulse Resp BP Pulse Ox 98.4 F 96 H 18 139/87 94 09/14/19 04:21 09/14/19 04:21 09/14/19 04:21 09/14/19 04:21 09/14/19 08:16 Results - Labs CBC & Chem 7: 09/12/19 06:33 09/12/19 06:33 Labs: Laboratory Last Values WBC 11.0 K/mm3 (4.5-11.0) 09/12/19 06:33 RBC 3.42 M/mm3 (3.65-5.03) L 09/12/19 06:33 Hgb 9.1 gm/dl (11.8-15.2) L 09/12/19 06:33 Hct 26.9 % (35.5-45.6) L 09/12/19 06:33 MCV 79 fl (84-94) L 09/12/19 06:33 MCH 27 pg (28-32) L 09/12/19 06:33 MCHC 34 % (32-34) 09/12/19 06:33 RDW 16.1 % (13.2-15.2) H 09/12/19 06:33 Plt Count 623 K/mm3 (140-440) H 09/12/19 06:33 Lymph % (Auto) 6.1 % (13.4-35.0) L 09/09/19 04:35 [place] % (Auto) 8.6 % (0.0-7.3) H 09/09/19 04:35 Eos % (Auto) 3.2 % (0.0-4.3) 09/09/19 04:35 Baso % (Auto) 0.5 % (0.0-1.8) 09/09/19 04:35 Lymph # 1.0 K/mm3 (1.2-5.4) L 09/09/19 04:35 [place] # 1.4 K/mm3 (0.0-0.8) H 09/09/19 04:35 Eos # 0.5 K/mm3 (0.0-0.4) H 09/09/19 04:35 Baso # 0.1 K/mm3 (0.0-0.1) 09/09/19 04:35 Seg Neutrophils % 81.6 % (40.0-70.0) H 09/09/19 04:35 Seg Neutrophils # 13.4 K/mm3 (1.8-7.7) H 09/09/19 04:35 Sodium 136 mmol/L (137-145) L 09/12/19 06:33 Potassium 4.7 mmol/L (3.6-5.0) 09/12/19 06:33 Chloride 96.7 mmol/L (98-107) L 09/12/19 06:33 Carbon Dioxide 23 mmol/L (22-30) 09/12/19 06:33 Anion Gap 21 mmol/L 09/12/19 06:33 BUN 13 mg/dL (9-20) 09/12/19 06:33 Creatinine 1.3 mg/dL (0.8-1.5) 09/12/19 06:33 Estimated GFR 57 ml/min 09/12/19 06:33 BUN/Creatinine Ratio 10 % 09/12/19 06:33 Glucose 195 mg/dL (75-100) H 09/12/19 06:33 POC Glucose 170 (70-105) H 09/14/19 07:42 Hemoglobin A1c 10.0 % (4-6) H 09/09/19 09:08 Lactic Acid 1.60 mmol/L (0.7-2.0) 09/08/19 20:30 Calcium 8.1 mg/dL (8.4-10.2) L 09/12/19 06:33 Total Bilirubin 0.50 mg/dL (0.1-1.2) 09/08/19 18:45 AST 30 units/L (5-40) 09/08/19 18:45 ALT 32 units/L (7-56) 09/08/19 18:45 Alkaline Phosphatase 414 units/L (35-129) H 09/08/19 18:45 Total Protein 7.9 g/dL (6.3-8.2) 09/08/19 18:45 Albumin 3.0 g/dL (3.9-5) L 09/08/19 18:45 Albumin/Globulin Ratio 0.6 % 09/08/19 18:45 Blood Type O POSITIVE 09/10/19 08:34 Antibody Screen Negative 09/10/19 08:34 Crossmatch See Detail 09/10/19 08:34 Active Medications - Current Medications Current Medications: Generic Name Dose Route Start Last Admin Trade Name Freq PRN Reason Stop Dose Admin Acetaminophen 650 mg 09/08/19 23:47 09/14/19 04:37 Tylenol PO 650 mg Q4H PRN Administration Pain MILD(1-3)/Fever >100.5/LAMBERT Amlodipine Besylate 10 mg 09/09/19 10:00 09/14/19 09:18 Amlodipine PO 10 mg QDAY GABINO Administration Dextrose 50 ml 09/09/19 08:36 D50w (25gm) Syringe IV Q30MIN PRN Hypoglycemia Protocol Ferrous Sulfate 325 mg 09/09/19 10:00 09/14/19 09:18 Feosol PO 325 mg QDAY GABINO Administration Gabapentin 400 mg 09/09/19 01:00 09/14/19 06:16 Gabapentin PO 400 mg Q6HR GABINO Administration Heparin Sodium (Porcine) 5,000 unit 09/09/19 18:00 09/14/19 09:18 Heparin SUB-Q 5,000 unit Q12HR GABINO Administration Sodium Chloride 1,000 mls @ 100 mls/hr 09/08/19 23:45 09/14/19 09:15 Nacl 0.45% 1000 Ml IV 100 mls/hr DIRECT GABINO Administration Ceftriaxone Sodium 2 gm in 100 mls @ 200 mls/hr 09/12/19 16:00 09/14/19 09:19 Rocephin/Ns 2 Gm/100 Ml IV 09/24/19 10:29 200 mls/hr Q24HR GABINO Administration Insulin Human Lispro 0 unit 09/09/19 22:00 09/13/19 21:43 Humalog SUB-Q 2 unit QHS GABINO Administration Protocol Insulin Human Lispro 0 unit 09/09/19 09:00 09/14/19 07:30 Humalog SUB-Q 2 unit AC GABINO Administration Protocol Morphine Sulfate 2 mg 09/08/19 23:47 Morphine IV Q4H PRN Pain, Moderate (4-6) Ondansetron HCl 4 mg 09/08/19 23:47 Zofran IV Q8H PRN Nausea And Vomiting Oxycodone/Acetaminophen 1 tab 09/09/19 00:24 09/12/19 07:37 Percocet 5/325 PO 1 tab Q4H PRN Administration Pain, Moderate (4-6) Sodium Chloride 10 ml 09/09/19 10:00 09/14/19 09:19 Sodium Chloride Flush Syringe 10 Ml IV 10 ml BID GABINO Administration Sodium Chloride 10 ml 09/08/19 23:47 Sodium Chloride Flush Syringe 10 Ml IV PRN PRN LINE FLUSH Sodium Hypochlorite 1 applic 09/10/19 12:00 Dakin's Full Strength TP Q12H PRN Wound Care
[2019-09-15] MEDS: GABAPENTIN 400 MG CAP PO SCH ×2 (05:11→14:18)
[2019-09-15] MEDS: INSULIN LISPRO 100 UNIT/ML SUB-Q SCH ×2 (09:25→14:18)
[2019-09-15] MEDS: amLODIPine 10 MG TAB PO SCH (09:26)
[2019-09-15] MEDS: HEPARIN 5,000 UNIT/1 ML VIAL SUB-Q SCH (09:26)
[2019-09-15] MEDS: FERROUS SULFATE 325 MG TAB PO SCH (09:26)
[2019-09-15] MEDS: cefTRIAXone/NS 2 GM/100 ML 2 GM/100 ML BAG IV SCH (09:26)
--- NOTE | 2019-09-15 11:47 | Discharge Summary ---
Providers - Providers Date of Admission: 09/08/19 22:36 Date of discharge: 09/15/19 Attending physician: DEUCE STEPHEN 09/08/19 23:47 Consult to Physician [CONS] Routine Comment: Consulting Provider: ARMINDA GOODWIN Physician Instructions: Reason For Exam: osteo 09/09/19 15:10 Consult to Physician [CONS] Routine Comment: Consulting Provider: HAO DEE Physician Instructions: evaluate for surgical debridement. Reason For Exam: Left foot and great toe gangrene 09/10/19 12:25 Consult to Physician [CONS] Routine Comment: Consulting Provider: DEION ELIZABETH Physician Instructions: Reason For Exam: Left foot ulcer, peripheral vascular d. 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 Remove PICC or midline after last dose unless otherwise instructed. Line: Maintain IV access with weekly dressing changes and locks per protocol. Labs: Every Sunday CBC, AST, ALT, Creatinine, Please fax results to [phone] and call [phone] for critical lab results. Arminda Argueta MD Infectious Diseases Stuffing Machine Operator [facility], [place] ([facility]) O: [phone] F: [phone] 09/12/19 13:12 Consult to PICC Line RN [CONS] Stat Reason For Exam: please a midline for rocephin x 2 weeks Type Line:: PICC 09/15/19 10:36 Consult to Wound/ET Nurse [CONS] Urgent Reason For Exam: wound eval Primary care physician: FLOWER GROWER Hospitalization Condition: Fair Disposition: DC/TX-06 HOME UNDER HOME [facility] Core Measure Documentation - Palliative Care Palliative Care/ Comfort Measures: Not Applicable - Core Measures Any of the following diagnoses?: none Exam - Constitutional Vitals: Temp Pulse Resp BP Pulse Ox 98.9 F 80 18 125/75 93 09/15/19 05:07 09/15/19 09:26 09/15/19 05:07 09/15/19 09:26 09/15/19 05:07 Plan Activity: advance as tolerated Diet: low fat, low cholesterol, low salt, diabetic Special Instructions: home health RN Plan of Treatment: 1.Follow up with PCP in 1 week. 2.Follow up with Dr. Argueta ID in 1 week 3.Follow up with Dr. Dong Peterson, Vasc surg in 1 week 4.Continue Ceftriaxone 2g iv daily till 09/24/2019. 5.Follow up with Dr. Dee, Surgeon in 1 week Follow up with: PRIMARY MD JERARDO [Primary Care Provider] - 3-5 Days DONG PETERSON MD [Staff Physician] - 14 Days
[2019-09-15 13:03] VITALS: BP 118/70
== END 2019-09-15 18:30 | disposition home health service (06) | DRG 853 ==
LOC: ED 16:44 → 3A 22:36
PROVIDERS: ADMIT Internal Medicine; ATTEND Internal Medicine
PROC: 30233N1 Transfusion of Nonautologous Red Blood Cells into Peripheral Vein, Percutaneous Approach (ICD-10-PCS; 2019-09-10)
PROC: 0J9R0ZZ Drainage of Left Foot Subcutaneous Tissue and Fascia, Open Approach (ICD-10-PCS; principal; 2019-09-11)
PROC: 0Y6Q0Z0 Detachment at Left 1st Toe, Complete, Open Approach (ICD-10-PCS; 2019-09-11)
PROC: 05HY33Z Insertion of Infusion Device into Upper Vein, Percutaneous Approach (ICD-10-PCS; 2019-09-12)
DX: A41.9 Sepsis, unspecified organism (principal); N17.0 Acute kidney failure with tubular necrosis; M86.9 Osteomyelitis, unspecified; E87.1 Hypo-osmolality and hyponatremia; L03.116 Cellulitis of left lower limb; E11.42 Type 2 diabetes mellitus with diabetic polyneuropathy; E11.621 Type 2 diabetes mellitus with foot ulcer; I10 Essential (primary) hypertension; D64.9 Anemia, unspecified; R65.20 Severe sepsis without septic shock; L97.529 Non-pressure chronic ulcer of other part of left foot with unspecified severity; B95.1 Streptococcus, group B, as the cause of diseases classified elsewhere; I73.9 Peripheral vascular disease, unspecified; Z79.4 Long term (current) use of insulin; Z82.49 Family history of ischemic heart disease and other diseases of the circulatory system; I12.9 Hypertensive chronic kidney disease with stage 1 through stage 4 chronic kidney disease, or unspecified chronic kidney disease; E11.22 Type 2 diabetes mellitus with diabetic chronic kidney disease; N18.9 Chronic kidney disease, unspecified
CPT/HCPCS: 36415; 71046; 80048; 80053; 82140; 82270; 82962; 83036; 85025; 85027; 86850; 86900; 86901; 86920; 87040; 87075; 87116; 88302; 88304; 88311; 88312; 93306; 94760; G0378; A9577; J0295; J0692; J0696; J1644; J1815; J2405; J2543; J2704; J3010; J3370; J7030; J7040; P9016

== ENCOUNTER 2019-10-06 03:06 | Inpatient (IN) | payer OTHER ==
[2019-10-06 04:24] LABS: Hematocrit 31.3 % (35.5-45.6); Hemoglobin 10.2 gm/dl (11.8-15.2); Mean Corpuscular HGB Conc 33 % (32-34); Mean Corpuscular Volume 79 fl (84-94); Platelet Count 344 K/mm3 (140-440); Red Blood Count 3.95 M/mm3 (3.65-5.03)
--- NOTE | 2019-10-06 04:29 | XRay Report ---
LEFT FOOT 2 VIEWS INDICATION / CLINICAL INFORMATION: Left post toe amputation 09/11 w/ drainage. COMPARISON: 09/08/2019 FINDINGS: The great toe and most of the first metatarsal have been surgically removed. No other significant abn ormality Signer Name: Yoan York MD FACR Signed: 10/06/2019 4:25 AM Workstation Name: [id number]
[2019-10-06 04:34] LABS: Calcium 8.9 mg/dL (8.4-10.2)
--- NOTE | 2019-10-06 08:47 | Emergency Department Report ---
HPI - General Chief Complaint: Extremity Injury, Lower Time Seen by Provider: 10/06/19 08:27 - HPI HPI: Room 4 The patient is a 54-year-old male present with a chief complaint of left foot pain and swelling. Patient had his left great toe amputated 09/11/2019. The patient states he followed up with his vascular surgeon 2 weeks ago who informed him some of his wound is turning yellow instead of pink as it should. The patient states he went to see his infectious disease doctor Dr. Nicholson 4 days ago who told him it appears his second and third toe adjacent to the original amputation also appear infected. He recommended the patient come to the ED for admission. Patient denies fever at home but states his leg has become swollen over the past 3 days ED Past Medical Hx - Past Medical History Previous Medical History?: Yes Hx Hypertension: Yes Hx Diabetes: Yes Hx GERD: Yes Hx Renal Disease: Yes (Chronic Renal Disease) - Surgical History Past Surgical History?: Yes Additional Surgical History: 09/11 post left big toe amputation - Family History Family history: no significant - Social History Smoking Status: Never Smoker Substance Use Type: None (Denies illicit drug use) - Medications Home Medications: Home Medications Medication Instructions Recorded Confirmed Last Taken Type Ferrous Sulfate [Ferrous Sulfate 324 mg PO DAILY 09/08/19 09/08/19 Unknown Hi story 324 MG] Gabapentin 400 mg PO Q6H 09/08/19 09/08/19 Unknown History amLODIPine 10 mg PO QDAY 09/08/19 09/08/19 Unknown History glipiZIDE [Glucotrol] 20 mg PO BID 09/08/19 09/08/19 Unknown History HYDROcodone/APAP 5-325 [[place] 1 each PO Q6HR PRN #12 tablet 09/15/19 Unknown Rx 5/325] ED Review of Systems ROS: Stated complaint: POST BIG TOE AMPUTATION INFECTION Other details as noted in HPI Constitutional: denies: fever Skin: change in color Physical Exam - Physical Exam Vital Signs: Vital Signs 10/06/19 10/06/19 03:32 07:40 Temperature 98.1 F 98.8 F Pulse Rate 93 H 84 Respiratory 18 16 Rate Blood Pressure 132/74 Blood Pressure 135/82 [Left] O2 Sat by Pulse 97 100 Oximetry Physical Exam: GENERAL: The patient is well-developed well-nourished male lying on stretcher not appearing to be in acute distress. [] HEENT: Normocephalic. Atraumatic. Extraocular motions are intact. Patient has moist mucous membranes. NECK: Supple. Trachea midline CHEST/LUNGS: Clear to auscultation. There is no respiratory distress noted. HEART/CARDIOVASCULAR: Regular. There is no tachycardia. There is no gallop rub or murmur. ABDOMEN: Abdomen is soft, nontender. Patient has normal bowel sounds. There is no abdominal distention. SKIN: The wound site of recent left great toe amputation has some fibrinous exudate. There is surrounding erythema. The left second toe appears swollen erythematous and infected and the middle toe is erythematous NEURO: The patient is awake, alert, and oriented. The patient is cooperative. The patient has normal speech MUSCULOSKELETAL: There is no evidence of acute injury. ED Course Vital Signs 10/06/19 10/06/19 03:32 07:40 Temperature 98.1 F 98.8 F Pulse Rate 93 H 84 Respiratory 18 16 Rate Blood Pressure 132/74 Blood Pressure 135/82 [Left] O2 Sat by Pulse 97 100 Oximetry - Consultations Consultation #1: 10/06/19 11:16 Vascular surgery paged 10/06/19 11:[address] Li ED Medical Decision Making - Lab Data Result diagrams: 10/06/19 03:53 10/06/19 03:53 Laboratory Tests 10/06/19 10/06/19 03:53 03:53 WBC 9.5 RBC 3.95 Hgb 10.2 L Hct 31.3 L MCV 79 L MCH 26 L MCHC 33 RDW 17.0 H Plt Count 344 Sodium 136 L Potassium 4.5 Chloride 97.8 L Carbon Dioxide 22 Anion Gap 21 BUN 39 H Creatinine 1.4 Estimated GFR 53 BUN/Creatinine Ratio 28 Glucose 194 H Calcium 8.9 - Radiology Data Radiology results: report reviewed (Left foot x-ray, left lower extremity Doppler), image reviewed (Left foot x-ray, left lower extremity Doppler) interpreted by me: Left foot x-ray-no foreign body seen Left lower extremity Doppler (read by radiologist)-no sonographic evidence of deep venous thrombosis in the left lower extremity. Left foot x-ray (read by radiology)-the great toe and most of the first metatarsal have been surgically removed. No other significant abnormality. - Differential Diagnosis Diabetic foot infection, DVT Critical care attestation.: If time is entered above; I have spent that time in minutes in the direct care of this critically ill patient, excluding procedure time. ED Disposition Clinical Impression: Diabetic foot infection Disposition: OP ADMIT IP TO THIS HOSP Is pt being admited?: Yes Does the pt Need Aspirin: No Condition: Fair Instructions: Diabetes Mellitus Type 2 in Adults (ED) Referrals: ABDIEL,LUCIA [Other] - 3-5 Days Time of Disposition: 11:17 (Hospitalist notified (Dr. Carver))
[2019-10-06] MEDS ORDERED: cefTRIAXone/NS 1 GM/50 ML 1 GM/50 ML BAG IV ONE (08:53)
[2019-10-06] MEDS ORDERED: VANCOMYCIN/NS 1 GM/250 ML 1 GM/250 ML BAG IV ONE (08:53)
[2019-10-06] MEDS ORDERED: VANCOMYCIN 1,750 MG in SODIUM CHLORIDE 0.9% 500 ML 500 ML IV ONE (09:30)
--- NOTE | 2019-10-06 10:34 | Vascular Lab Report ---
LEFT LOWER EXTREMITY VENOUS DOPPLER ULTRASOUND HISTORY: Lower extremity pain and swelling. COMPARISON: None. TECHNIQUE: Grayscale, color and spectral Doppler imaging of the venous system of the left lower extre mity was performed. FINDINGS: Sapheno-femoral Junction: Normal venous flow, compressibility and augmentation. Common Femoral Vein: Normal venous flow, compressibility and augmentation. Femoral Vein: Normal venous flow, compressibility and augmentation. Profunda Femoral Vein: Normal venous flow, compressibility and augmentation. Popliteal Vein: Normal venous flow, compressibility and augmentation. Posterior tibial vein: Normal venous flow, compressibility and augmentation. Additional Findings: Diffuse soft tissue edema IMPRESSION: 1. No sonographic evidence of deep venous thrombosis in the left lower extremity. Signer Name: Kyle Kelsey MD Signed: 10/06/2019 10:29 AM Workstation Name: [id number]
--- NOTE | 2019-10-06 12:19 | Event Note ---
Date: 10/06/19 Discussed with ER. I'll see the patient later today. Recommend contacting hospitalist service for admission. Recommend contacting Dr. Dee with wound care. Recommend contacting infectious disease for worsening infection. NPO after MN except sips of water with meds. Possible angiography with revascularization tomorrow.
--- NOTE | 2019-10-06 13:29 | History and Physical Report ---
History of Present Illness Chief complaint: I need to get my foot checked out History of present illness: 54 YO Male with Obesity, HTN, DM complicated by Peripheral Neuropathy, Left Great Toe Osteomyelitis S/P Amputation of Left Great Toe and full caors antibiotic therapy presents to ED for evaluation. Patient states that he has experienced a foot blister over the weekend with the subsequent onset of discoloration and swelling to the bottom of his left foot. Patient was seen and evaluated by his infectious disease doctor and was instructed to seek further care. Patient transported to [facility] via private vehicle for further evaluation and care. Patient seen and evaluated in the emergency department. Lab and imaging studies reviewed. Patient was found to have left lower extremity swelling as well as diminished pulses to left lower extremity. Vascular surgery service consulted in ED. Patient placed in observation status and admitted to surgical floor for further evaluation and care due to high risk for vascular complications. Patient pending angiogram in a.m. Patient denies fever, chills, chest pain, palpitations, shortness of breath, productive cough, or recent ill contacts. Prior admission on 09/08/2019 reviewed. All medication listed at time of admission have been reconciled. Past History Past Medical History: diabetes, hypertension Past Surgical History: Other (Left great toe amputation) Social history: , lives with family. denies: smoking, alcohol abuse, prescription drug abuse Family history: diabetes, hypertension Medications and Allergies Allergies Allergy/AdvReac Type Severity Reaction Status Date / Time No Known Allergies Allergy Verified 07/21/19 16:23 Home Medications Medication Instructions Recorded Confirmed Last Taken Type Ferrous Sulfate [Ferrous Sulfate 324 mg PO DAILY 09/08/19 10/06/19 Unknown History 324 MG] Gabapentin 400 mg PO Q8H 09/08/19 10/06/19 Unknown History amLODIPine 10 mg PO QDAY 09/08/19 10/06/19 Unknown History glipiZIDE [Glucotrol] 10 mg PO BID 09/08/19 10/06/19 Unknown History Review of Systems Constitutional: no weight loss, no weight gain, no fever, no chills Ears, nose, mouth and throat: no ear pain, no ear discharge, no tinnitis, no decreased hearing, no nose pain, no nasal congestion Cardiovascular: no chest pain, no orthopnea, no palpitations, no rapid/irregular heart beat, no edema Respiratory: no cough, no cough with sputum, no excessive sputum, no hemoptysis, no shortness of breath Gastrointestinal: no abdominal pain, no nausea, no vomiting, no diarrhea, no con stipation Genitourinary Male: no hematuria, no flank pain, no discharge, no urinary frequency, no urinary hesitancy Rectal: no pain, no incontinence, no bleeding Musculoskeletal: no neck stiffness, no neck pain, no shooting arm pain, no arm numbness/tingling, no low back pain Integumentary: foot/leg ulcers, no rash, no pruritis, no redness, no sores, no wounds Neurological: no paralysis, no weakness, no seizures, no syncope, no tremors, no ataxia Psychiatric: no anxiety, no memory loss, no change in sleep habits, no insomnia, no hypersomnia, no change in libido, no disorientation Endocrine: no cold intolerance, no heat intolerance, no polyphagia, no excessive thirst, no polydipsia, no polyuria Hematologic/Lymphatic: no easy bruising, no easy bleeding, no lymphadenopathy, no lymphedema Allergic/Immunologic: no urticaria, no allergic rhinitis, no wheezing, no persi stent infections, no anaphylaxis, no angioedema Exam - Constitutional Vitals: Temp Pulse Resp BP Pulse Ox 98.7 F 82 16 127/73 100 10/06/19 10:55 10/06/19 10:55 10/06/19 10:55 10/06/19 10:55 10/06/19 10:55 General appearance: Present: mild distress - EENT Eyes: Present: PERRL ENT: hearing intact, clear oral mucosa - Neck Neck: Present: supple, normal ROM - Respiratory Respiratory effort: normal Respiratory: bilateral: CTA - Cardiovascular Heart Sounds: Present: S1 & S2. Absent: rub, click - Extremities Extremities: pulses symmetrical, No edema Extremity abnormal: ulceration, erythema, deformity, pulses diminished Peripheral Pulses: abnormal (1+, equal to bilateral lower extremities,) - Abdominal General gastrointestinal: Present: soft, non-tender, non-distended, normal bowel sounds Male genitourinary: Present: normal - Integumentary Integumentary: Present: clear, warm, dry - Musculoskeletal Musculoskeletal: gait normal, strength equal bilaterally - Psychiatric Psychiatric: appropriate mood/affect, intact judgment & insight - Neurologic Neurologic: CNII-XII intact, moves all extremities Results - Labs CBC & Chem 7: 10/06/19 03:53 10/06/19 03:53 Labs: Abnormal lab results 10/06/19 10/06/19 Range/Units 03:53 03:53 Hgb 10.2 L (11.8-15.2) gm/dl Hct 31.3 L (35.5-45.6) % MCV 79 L (84-94) fl MCH 26 L (28-32) pg RDW 17.0 H (13.2-15.2) % Sodium 136 L (137-145) mmol/L Chloride 97.8 L (98-107) mmol/L BUN 39 H (9-20) mg/dL Glucose 194 H (75-100) mg/dL Assessment and Plan - Patient Problems (1) Diabetic foot ulcer associated with diabetes mellitus due to underlying condition Current Visit: No Status: Acute Qualifiers: Laterality: left Plan to address problem: Empiric IV antibiotic therapy, supportive care, wound care consulted, surgical service consulted, vascular surgery service consulted, patient found to have positive granulation in the wound bed, with moderate wound healing. (2) Hypertension Current Visit: Yes Status: Acute Qualifiers: Hypertension type: essential hypertension Qualified Code(s): I10 - Essential (primary) hypertension Plan to address problem: Monitor blood pressure every shift, supportive care, continue medical management. (3) Peripheral vascular disease Current Visit: Yes Status: Acute Plan to address problem: Vascular surgery consulted, patient is pending angiogram in a.m. (4) Diabetes mellitus Current Visit: No Status: Acute Plan to address problem: Sliding scale insulin, consistent carbohydrate diet, Accu-Chek, hypoglycemia protocol. (5) Osteomyelitis Current Visit: No Status: Acute Qualifiers: Laterality: left Plan to address problem: Patient is status post left great toe amputation, x-ray of the left foot does not reveal periosteal elevation or evidence of recurrent osteomyelitis, continue supportive care, surgical service consulted. (6) DVT prophylaxis Current Visit: Yes Status: Acute Plan to address problem: SCD to bilateral lower extremities while in bed, patient is ambulatory.
[2019-10-06] MEDS ORDERED: ONDANSETRON 4 MG/2 ML INJ IV PRN (13:31)
--- NOTE | 2019-10-06 14:28 | Consultation ---
History of Present Illness - Reason for Consult Consult date: 10/06/19 left foot Requesting physician: JESSIE SY - History of Present Illness 54 YO Male with Obesity, HTN, DM complicated by Peripheral Neuropathy, Left Great Toe Osteomyelitis S/P Amputation of Left Great Toe and full caors antibiotic therapy presents to ED for evaluation. Patient states that he has experienced a foot blister over the weekend with the subsequent onset of discoloration and swelling to the bottom of his left foot. Patient was seen and evaluated by his infectious disease doctor and was instructed to seek further care. Patient transported to [facility] via private vehicle for further evaluation and care. Patient seen and evaluated in the emergency department. Lab and imaging studies reviewed. Patient was found to have left lower extremity swelling as well as diminished pulses to left lower extremity. Vascular surgery service consulted in ED. Patient placed in observation status and admitted to surgical floor for further evaluation and care due to high risk for vascular c omplications. Patient pending angiogram in a.m. Patient denies fever, chills, chest pain, palpitations, shortness of breath, productive cough, or recent ill contacts. Prior admission on 09/08/2019 reviewed. All medication listed at time of admission have been reconciled. Vascular consulted for abnormal arterial Doppler. On physical exam, patient has a palpable right dorsalis pedis pulse with a focal area of laceration with surrounding erythema on the dorsum of the first digit. The patient has a palpable left dorsalis pedis pulse with granulation tissue and some slough within the TMA open site, with surrounding erythema involving the second digit and erosion of the distal tip of the second digit with some slough on it. Patient has severe neuropathy of his feet. Past History Past Medical History: diabetes, hypertension Past Surgical History: Other (Left great toe amputation) Social history: , lives with family. denies: smoking, alcohol abuse, prescription drug abuse Family history: diabetes, hypertension Medications and Allergies Allergies Allergy/AdvReac Type Severity Reaction Status Date / Time No Known Allergies Allergy Verified 07/21/19 16:23 Home Medications Medication Instructions Recorded Confirmed Last Taken Type Ferrous Sulfate [Ferrous Sulfate 324 mg PO DAILY 09/08/19 10/06/19 Unknown History 324 MG] Gabapentin 400 mg PO Q8H 09/08/19 10/06/19 Unknown History amLODIPine 10 mg PO QDAY 09/08/19 10/06/19 Unknown History glipiZIDE [Glucotrol] 10 mg PO BID 09/08/19 10/06/19 Unknown History Active Meds: Active Medications Acetaminophen (Tylenol) 650 mg PO Q4H PRN PRN Reason: Pain MILD(1-3)/Fever >100.5/LAMBERT Acetaminophen/Hydrocodone Bitart ([place] 5/325) 1 each PO Q6HR PRN PRN Reason: PAIN Amlodipine Besylate (Amlodipine) 10 mg PO QDAY GABINO Ferrous Sulfate (Feosol) 325 mg PO DAILY GABINO Gabapentin (Gabapentin) 400 mg PO Q6HR GABINO Ceftriaxone Sodium (Rocephin/Ns 1 Gm/50 Ml) 1 gm in 50 mls @ 100 mls/hr IV Q 24HR GABINO; Protocol Ondansetron HCl (Zofran) 4 mg IV Q8H PRN PRN Reason: Nausea And Vomiting Sodium Chloride (Sodium Chloride Flush Syringe 10 Ml) 10 ml IV BID GABINO Sodium Chloride (Sodium Chloride Flush Syringe 10 Ml) 10 ml IV PRN PRN PRN Reason: LINE FLUSH Review of Systems All systems: negative (see HPI) Exam - Constitutional Vitals: Temp Pulse Resp BP Pulse Ox 98.7 F 79 16 109/55 97 10/06/19 10:55 10/06/19 13:00 10/06/19 13:00 10/06/19 13:00 10/06/19 13:00 General appearance: Present: no acute distress - EENT Eyes: Present: EOM intact ENT: hearing intact - Respiratory Respiratory effort: normal - Extremities Extremities: normal temperature, normal color, abnormal (see HPI) Extremity abnormal: edema (4+ LLE, 2+ RLE) Results - Labs CBC & Chem 7: 10/06/19 03:53 10/06/19 03:53 Labs: Abnormal lab results 10/06/19 10/06/19 Range/Units 03:53 03:53 Hgb 10.2 L (11.8-15.2) gm/dl Hct 31.3 L (35.5-45.6) % MCV 79 L (84-94) fl MCH 26 L (28-32) pg RDW 17.0 H (13.2-15.2) % Sodium 136 L (137-145) mmol/L Chloride 97.8 L (98-107) mmol/L BUN 39 H (9-20) mg/dL Glucose 194 H (75-100) mg/dL - Imaging and Cardiology Venous US: report reviewed, image reviewed (and reviewed arterial duplex from last admission) Assessment and Plan 54-year-old male who presents with severe diabetic neuropathy, open left first digit TMA and small laceration on the dorsum of the right first digit with bilateral lower extremity wound infections. He had a venous duplex demonstrating no DVT of the left lower extremity. He had an arterial ultrasound demonstrating peripheral vascular disease. Recommend obtaining infectious disease consult for bilateral lower extremity wound infections with erythema. The patient does not have much pain due to severe neuropathy. Recommend obtaining wound care consult. Patient would benefit from left first digit wound VAC. No DVT of the left lower extremity, but there is peripheral vascular disease based on prior ultrasound. Recommend angiography with possible revascularization. Given his palpable pedal pulse, he may have adequate blood flow to heal, but this should be further interrogated with angiography given his recurrent admission and abnormal arterial Doppler. Risks, benefits, and alternatives discussed.
[2019-10-06] MEDS ORDERED: DEXTROSE 50% IN WATER (25GM) 50 ML SYRINGE IV PRN (14:29)
[2019-10-06] MEDS ORDERED: GABAPENTIN 400 MG CAP ONE (15:31)
[2019-10-06] MEDS: GABAPENTIN 400 MG CAP PO SCH ×2 (15:32→22:50)
[2019-10-06] MEDS: HYDROcodone/ACETAMINOPHEN 5-325 MG TAB PO PRN (19:30)
[2019-10-07] MEDS: HYDROcodone/ACETAMINOPHEN 5-325 MG TAB PO PRN ×2 (00:33→21:09)
[2019-10-07] MEDS: INSULIN LISPRO 100 UNIT/ML SUB-Q SCH ×5 (01:42→18:48)
[2019-10-07] MEDS: GABAPENTIN 400 MG CAP PO SCH ×4 (02:01→18:46)
[2019-10-07 07:49] LABS: BUN/Creatinine Ratio 25; Blood Urea Nitrogen 27 mg/dL (9-20); Calcium 8.6 mg/dL (8.4-10.2); Hemolysis Index 54
[2019-10-07] MEDS ORDERED: SODIUM CHLORIDE 0.9% 500 ML 0 ML ONE (07:49)
[2019-10-07] MEDS ORDERED: SODIUM CHLORIDE 0.9% 500 ML 500 ML IV SCH (08:00)
[2019-10-07] MEDS ORDERED: HEPARIN/NS 5000 UNIT/500ML 1,000 ML IR ONE (08:48)
[2019-10-07] MEDS ORDERED: HEPARIN 10,000 UNITS/10 ML VIAL ONE (08:48)
[2019-10-07] MEDS ORDERED: ceFAZolin/Water 2 GM/20 ML 2 GM/20 ML SYRINGE IV ONE (08:49)
[2019-10-07] MEDS ORDERED: SODIUM CHLORIDE 0.9% 500 ML 500 ML ONE (08:49)
[2019-10-07] MEDS: fentaNYL 100 MCG/2 ML INJ ONE ×3 (09:38→10:33)
[2019-10-07] MEDS: MIDAZOLAM 2 MG/2 ML INJ ONE ×3 (09:38→10:33)
[2019-10-07] MEDS: LIDOCAINE (2%) 20 MG/1 ML VIAL 20 ML MDV INFILTRATI ONE ×2 (09:38→09:49)
[2019-10-07] MEDS ORDERED: NON-FORMULARY EACH (Ferrous Sulfate [Ferrous Sulfate 324 Mg] 324 MG) PO SCH (10:00)
[2019-10-07] MEDS ORDERED: cefTRIAXone/NS 1 GM/50 ML 1 GM/50 ML BAG IV SCH (10:00)
[2019-10-07] MEDS ORDERED: VERAPAMIL 5 MG/2 ML INJ ONE (10:17)
[2019-10-07] MEDS ORDERED: NITROGLYCERIN DRIP 50 MG/250 ML BOTTLE ONE (10:17)
[2019-10-07] MEDS ORDERED: SODIUM CHLORIDE 0.9% 1000 ML 1,000 ML ONE (10:17)
[2019-10-07] MEDS ORDERED: fentaNYL 100 MCG/2 ML INJ ONE (10:51)
[2019-10-07] MEDS ORDERED: MIDAZOLAM 2 MG/2 ML INJ ONE (10:51)
[2019-10-07] MEDS ORDERED: ASPIRIN 81 MG TAB CHEW ONE (11:06)
[2019-10-07] MEDS ORDERED: CLOPIDOGREL 300 MG TAB ONE (11:07)
--- NOTE | 2019-10-07 11:27 | Post Operative Note ---
Date of procedure: 10/07/19 Pre-op diagnosis: LLE nonhealing wound with PVD Post-op diagnosis: same Findings: Occluded left anterior tibial artery 40-50% distal left SFA stenosis Procedure: 1. Ultrasound guided access of the right common femoral artery 2. Angiography of the right lower extremity 3. Selection of the abdominal aorta with angiography 4. Selection of the left common femoral artery, superficial femoral artery, popliteal artery, and anterior tibial artery 5. Atherectomy of the left anterior tibial artery with a 1.5 mm solid CSI device with angioplasty with a tapered 3-3.5 mm to 10 mm Cindy cross balloon 6. Angioplasty of the left distal superficial femoral artery with a 6 mm x 150 mm iNPACT DCB 7. Closure of the right common femoral artery with a 6 Israeli pro glide Anesthesia: local (w/ conscious sedation) Surgeon: DEION ELIZABETH Estimated blood loss: minimal Condition: stable Disposition: floor
--- NOTE | 2019-10-07 11:34 | Operative Report ---
Operative Report Operative Report: EXAM: 1. Ultrasound guided access of the right common femoral artery 2. Angiography of the right lower extremity 3. Selection of the abdominal aorta with angiography 4. Selection of the left common femoral artery, superficial femoral artery, popliteal artery, and anterior tibial artery 5. Atherectomy of the left anterior tibial artery with a 1.5 mm solid CSI device with angioplasty with a tapered 3-3.5 mm x 210 mm Cindy cross balloon 6. Angioplasty of the left distal superficial femoral artery with a 6 mm x 150 mm iNPACT DCB 7. 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 MEDICATIONS: Please see nursing report for full details. DEVICES: 1.5 mm solid CSI atherectomy device 3 to 3.5 mm x 210 mm Nanocross angioplasty balloon 6 mm x 150 mm iNPACT DCB CONTRAST: Please see [facility] report for full details. PROCEDURE: The risks, benefits, and alternatives were discussed with the patient; written informed consent was obtained. The risks, benefits, and alternatives of drug- coated technology discussed with the patient; informed consent was obtained. The patient was brought to the [facility] suite and the groins were prepped and draped in a sterile fashion. Ultrasound was used to evaluate the right common femoral artery which was patent. Under direct ultrasound guidance, the right common femoral artery was accessed with a 21-gauge micropuncture needle. 0.018 inch wire was passed into the aorta. Needle was exchanged for transitional dilator. Wire was exchanged for a 0.035 inch wire. Transitional dilator was exchanged for a 5 Estonian sheath. Digital subtraction angiography was performed demonstrating patency of the right common femoral artery, right lower external iliac artery, and proximal superficial femoral artery and profunda femoral artery. 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 The access site was appropriate, slightly above the bifurcation and below the inferior epigastric artery. Omni Flush cath was advanced over the wire and used to select the abdominal aorta. Digital subtraction angiography was performed. The infrarenal abdominal aorta, bilateral common iliac arteries, bilateral external iliac arteries, and bilateral internal iliac arteries were patent. The left common femoral artery was selected, the left superficial femoral artery was selected, and the left popliteal artery was selected. Digital subtraction angiography was performed. The left common femoral artery, profundofemoral artery, and proximal and mid superficial femoral artery were patent. The distal superficial femoral artery had tandem 30% narrowings with a 40 to 50% narrowing. The popliteal artery was patent. The tibioperoneal trunk was patent. The posterior tibial artery was patent until the level of the ankle, at which point there is a focal 60% narrowing. The rest of the posterior tibial artery was patent. The anterior tibial artery was occluded at 2 separate points for 5 cm with high-grade disease in the proximal and midportion of the anterior tibial artery. The anterior tibial artery reconstituted from the peroneal artery which was patent through a large collateral at the level of the ankle. After reviewing the diagnostic angiography images, I decided the patient would benefit from intervention. The patient was heparinized. Sheath was exchanged for 6 Estonian 90 cm [place] destination positioned in the left popliteal artery. Using a variety of wires and catheters, the anterior tibial artery was crossed and a trailblazer was passed into the dorsalis pedis. Digital subtraction angiography was performed confirming position. Atherectomy was performed of the left anterior tibial artery at low and medium settings with a 1.5 mm CSI atherectomy device. After this was performed, a tapered 3 to 3.5 mm x 210 mm angioplasty balloon was advanced over the wire and used to perform angioplasty throughout the length of the anterior tibial artery. Digital subtraction angiography was performed demonstrating less than 20% residual narrowing of the anterior tibial artery. There is prompt three-vessel runoff into the foot. Sheath was retracted and angioplasty was performed of the distal superficial femoral artery with roadmap imaging with a 6 mm x 150 mm iNPACT DCB. Digital subtraction angiography afterwards demonstrated no residual narrowing of the superficial femoral artery. At this point, all wires, catheters, and sheaths were retracted to the right external iliac artery. Pro-glide was then used to close the arteriotomy achieving partial closure. Pressure was held for 5 minutes and hemostasis was achieved. Sterile dressing and compression dressing was applied. Patient tolerated the procedure well. No immediate postprocedural complication. At the conclusion of the procedure, they were palpable dorsalis pedis pulses bilaterally. FINDINGS: Please see procedure note above. IMPRESSION: 1. Successful atherectomy and angioplasty of the left anterior tibial artery. 2. Successful angioplasty of the left distal superficial femoral artery. 3. Successful angiography of the bilateral lower extremities. 4. Successful ultrasound-guided access of the right common femoral artery.
--- NOTE | 2019-10-07 11:55 | Event Note ---
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 I will see him tomorrow.
[2019-10-07] MEDS: FERROUS SULFATE 325 MG TAB PO SCH (13:04)
[2019-10-07] MEDS: amLODIPine 10 MG TAB PO SCH (13:04)
--- NOTE | 2019-10-07 15:03 | Progress Note ---
Assessment and Plan Assessment and plan: Patient is a 54 YO Male with Obesity, HTN, DM complicated by Peripheral Neuropathy, Left Great Toe Osteomyelitis S/P Amputation of Left Great Toe and full caors antibiotic therapy presents to ED for evaluation. Patient states that he has experienced a foot blister over the weekend with the subsequent on set of discoloration and swelling to the bottom of his left foot. Patient was seen and evaluated by his infectious disease doctor and was instructed to seek further care. Patient transported to [facility] via private vehicle for further evaluation and care. Patient seen and evaluated in the emergency department. Lab and imaging studies reviewed. Patient was found to have left lower extremity swelling as well as diminished pulses to left lower extremity. Vascular surgery service consulted in ED. Patient placed in observation status and admitted to surgical floor for further evaluation and care due to high risk for vascular complications. Patient pending angiogram in a.m. Patient denies fever, chills, chest pain, palpitations, shortness of breath, productive cough, or recent ill contacts. Prior admission on 09/08/2019 reviewed. All medication listed at time of admission have been reconciled. (1) Diabetic foot ulcer associated with diabetes mellitus due to underlying condition Nonhealing left lower extremity diabetic wound/ulcer with peripheral vascular disease and arterial duplex Current Visit: No Status: Acute Qualifiers: Laterality: left Plan to address problem: Empiric IV antibiotic therapy, supportive care, wound care consulted, surgical service consulted, vascular surgery service consulted, patient found to have positive granulation in the wound bed, with moderate wound healing. (2) Hypertension Current Visit: Yes Status: Acute Qualifiers: Hypertension type: essential hypertension Qualified Code(s): I10 - Essential (primary) hypertension Plan to address problem: Monitor blood pressure every shift, supportive care, continue medical manag ement. (3) Peripheral vascular disease Current Visit: Yes Status: Acute Plan to address problem: Vascular surgery consulted, patient is pending angiogram in a.m. (4) Diabetes mellitus Current Visit: No Status: Acute Plan to address problem: Sliding scale insulin, consistent carbohydrate diet, Accu-Chek, hypoglycemia protocol. (5) Osteomyelitis Current Visit: No Status: Acute Qualifiers: Laterality: left Plan to address problem: Patient is status post left great toe amputation, x-ray of the left foot does not reveal periosteal elevation or evidence of recurrent osteomyelitis, continue supportive care, surgical service consulted. (6) DVT prophylaxis Current Visit: Yes Status: Acute Plan to address problem: SCD to bilateral lower extremities while in bed, patient is ambulatory. History Interval history: Patient was seen and examined. Follow-up on current diagnosis of left foot osteo. Overnight uneventful as no events directly reported to me. Patient denies any chest pain, shortness breath, nausea/vomiting or severe headaches. Imaging, nursing note, chart, labs and old chart reviewed. Discussed with patient. Hospitalist Physical - Physical exam Narrative exam: Gen: WDWN, NAD, Awake, Alert, Orientated HEENT: NCAT, EOMI, PERRL, OP Clear Neck: supple, no adenopathy, no thyromegaly, no JVD CVS/Heart: RRR, normal S1S2, pulses present bilaterally Chest/Lungs: CTA B, Symmetrical chest expansion, good air entry bilaterally GI/Abdomen: soft, NTND, good bowel sounds, no guarding or rebound /Bladder: no suprapubic tenderness, no CVA or paraspinal tenderness Extermity/Skin: non healing left foot MSK: FROM x 4 Neuro: CN 2-12 grossly intact, no new focal deficits Psych: calm - Constitutional Vitals: Temp Pulse Resp BP Pulse Ox 98.8 F 79 18 127/74 97 10/07/19 13:51 10/07/19 13:51 10/07/19 13:51 10/07/19 13:51 10/07/19 13:51 General appearance: Present: no acute distress Results - Labs CBC & Chem 7: 10/06/19 03:53 10/07/19 07:15 Labs: Laboratory Last Values WBC 9.5 K/mm3 (4.5-11.0) 10/06/19 03:53 RBC 3.95 M/mm3 (3.65-5.03) 10/06/19 03:53 Hgb 10.2 gm/dl (11.8-15.2) L 10/06/19 03:53 Hct 31.3 % (35.5-45.6) L 10/06/19 03:53 MCV 79 fl (84-94) L 10/06/19 03:53 MCH 26 pg (28-32) L 10/06/19 03:53 MCHC 33 % (32-34) 10/06/19 03:53 RDW 17.0 % (13.2-15.2) H 10/06/19 03:53 Plt Count 344 K/mm3 (140-440) 10/06/19 03:53 Sodium 135 mmol/L (137-145) L 10/07/19 07:15 Potassium 4.5 mmol/L (3.6-5.0) 10/07/19 07:15 Chloride 97.9 mmol/L (98-107) L 10/07/19 07:15 Carbon Dioxide 21 mmol/L (22-30) L 10/07/19 07:15 Anion Gap 21 mmol/L 10/07/19 07:15 BUN 27 mg/dL (9-20) H 10/07/19 07:15 Creatinine 1.1 mg/dL (0.8-1.5) 10/07/19 07:15 Estimated GFR > 60 ml/min 10/07/19 07:15 BUN/Creatinine Ratio 25 % 10/07/19 07:15 Glucose 154 mg/dL (75-100) H 10/07/19 07:15 POC Glucose 139 (70-105) H 10/07/19 06:26 Calcium 8.6 mg/dL (8.4-10.2) 10/07/19 07:15 Microbiology: Microbiology 10/06/19 08:56 Toe - Left Big Wound Culture - Preliminary Beta Hemolytic Strep Group B Staphylococcus Aureus Gram Negative Joey 10/06/19 Unknown Peripheral/Venous Blood Culture - Preliminary NO GROWTH AFTER 24 HOURS 10/06/19 Unknown Peripheral/Venous Blood Culture - Preliminary NO GROWTH AFTER 24 HOURS Cadena/IV: Voiding Method Toilet IV Catheter Type [Left Hand] INT / Saline Lock Active Medications - Current Medications Current Medications: Generic Name Dose Route Start Last Admin Trade Name Freq PRN Reason Stop Dose Admin Acetaminophen 650 mg 10/06/19 13:31 Tylenol PO Q4H PRN Pain MILD(1-3)/Fever >100.5/LAMBERT Acetaminophen/Hydrocodone Bitart 1 each 10/06/19 13:33 10/07/19 00:33 [place] 5/325 PO 1 each Q6HR PRN Administration PAIN Amlodipine Besylate 10 mg 10/07/19 10:00 10/07/19 13:04 Amlodipine PO Not Given QDAY GABINO Aspirin 81 mg 10/08/19 10:00 Halfprin Ec PO QDAY [facility] Clopidogrel Bisulfate 75 mg 03/25/20 10:00 Plavix PO QDAY [facility] Dextrose 50 ml 10/06/19 14:29 D50w (25gm) Syringe IV Q30MIN PRN Hypoglycemia Protocol Ferrous Sulfate 325 mg 10/07/19 10:00 10/07/19 13:04 Feosol PO Not Given DAILY [facility] Gabapentin 400 mg 10/06/19 14:00 10/07/19 13:04 Gabapentin PO Not Given Q6HR [facility] Ceftriaxone Sodium 1 gm in 50 mls @ 100 mls/hr 10/07/19 10:00 10/07/19 13:04 Rocephin/Ns 1 Gm/50 Ml IV Not Given Q24HR [facility] Protocol Sodium Chloride 500 mls @ 50 mls/hr 10/07/19 08:00 10/07/19 08:04 Nacl 0.9% 500 Ml IV 50 mls/hr DIRECT GABINO Administration Insulin Human Lispro 0 unit 10/06/19 18:00 10/07/19 13:04 Humalog SUB-Q Not Given Q6HR [facility] Protocol Ondansetron HCl 4 mg 10/06/19 13:31 Zofran IV Q8H PRN Nausea And Vomiting Sodium Chloride 10 ml 10/06/19 22:00 10/07/19 13:04 Sodium Chloride Flush Syringe 10 Ml IV Not Given BID GABINO Sodium Chloride 10 ml 10/06/19 13:31 Sodium Chloride Flush Syringe 10 Ml IV PRN PRN LINE FLUSH
[2019-10-07] MEDS: ACETAMINOPHEN 325 MG TAB PO PRN (16:13)
--- NOTE | 2019-10-07 17:14 | Consultation ---
History of Present Illness - Reason for Consult Consult date: 10/07/19 - History of Present Illness 54-year-old male past medical history obesity, hypertension, diabetes, osteomyelitis of great toe status post amputation 1 month ago admitted to the hospital for foot wound he notes that he had a blister develop over the weekend prior to admission, which developed into discoloration and swelling in the bottom of the left foot. He was seen in my clinic last Sunday, for follow-up of his previously dictation. At that time I noted that his second toe was red and has concern for further infection in that toe. He denies any fevers, sweats, chills at a time. Since admission he has undergone an angioplasty. In his previous admission he had an irritation of the great toe, blood and wound cultures at that time grew group B strep and unidentified gram-negative christopher. He was placed on ceftriaxone, and discharged to follow-up in our clinic. His surgical margins at that time were positive for osteomyelitis. Afebrile since admission with a normal white count. Currently receiving ceftr iaxone. Blood cultures currently negative, wound cultures from the left great toe currently growing group B strep, staph aureus, gram-negative christopher. Imaging personally reviewed: Foot x-ray: Toe and first metatarsal rotation, no other abnormality seen. Review of Systems: Bold if positive, otherwise negative General: fevers, chills, rigors HEENT: visual disturbance, diplopia, eye pain Respiratory: cough, sputum, hemoptysis, shortness of breath Cardiovascular: chest pain, syncope Gastrointestinal: nausea, vomiting, diarrhea, abdominal pain Genitourinary: dysuria, hematuria, flank pain Musculoskeletal: neck pain, back pain, joint pain, edema Neurologic: headaches, seizures Hematologic: easy bruising or bleeding Endocrine: night sweats, acute weight loss Skin: rash, jaundice, redness Psychiatric: suicidal, homicidal ideation Past History Past Medical History: diabetes, hypertension Past Surgical History: Other (Left great toe amputation) Social history: , lives with family. denies: smoking, alcohol abuse, prescription drug abuse Family history: diabetes, hypertension Medications and Allergies Allergies Allergy/AdvReac Type Severity Reaction Status Date / Time No Known Allergies Allergy Verified 07/21/19 16:23 Home Medications Medication Instructions Recorded Confirmed Last Taken Type Ferrous Sulfate [Ferrous Sulfate 324 mg PO DAILY 09/08/19 10/06/19 Unknown History 324 MG] Gabapentin 400 mg PO Q8H 09/08/19 10/06/19 Unknown History amLODIPine 10 mg PO QDAY 09/08/19 10/06/19 Unknown History glipiZIDE [Glucotrol] 10 mg PO BID 09/08/19 10/06/19 Unknown History Aspirin EC [Halfprin EC] 81 mg PO QDAY #30 tablet. 10/07/19 Unknown Rx Clopidogrel [Plavix] 75 mg PO QDAY #30 tablet 10/07/19 Unknown Rx Active Meds: Active Medications Acetaminophen (Tylenol) 650 mg PO Q4H PRN PRN Reason: Pain MILD(1-3)/Fever >100.5/LAMBERT Last Admin: 10/07/19 16:13 Dose: 650 mg Documented by: Acetaminophen/Hydrocodone Bitart ([place] 5/325) 1 each PO Q6HR PRN PRN Reason: PAIN Last Admin: 10/07/19 00:33 Dose: 1 each Documented by: Amlodipine Besylate (Amlodipine) 10 mg PO QDAY GABINO Last Admin: 10/07/19 13:04 Dose: Not Given Documented by: Aspirin (Halfprin Ec) 81 mg PO QDAY GABINO Clopidogrel Bisulfate (Plavix) 75 mg PO QDAY GABINO Dextrose (D50w (25gm) Syringe) 50 ml IV Q30MIN PRN; Protocol PRN Reason: Hypoglycemia Ferrous Sulfate (Feosol) 325 mg PO DAILY GABINO Last Admin: 10/07/19 13:04 Dose: Not Given Documented by: Gabapentin (Gabapentin) 400 mg PO Q6HR GABINO Last Admin: 10/07/19 13:04 Dose: Not Given Documented by: Ceftriaxone Sodium (Rocephin/Ns 1 Gm/50 Ml) 1 gm in 50 mls @ 100 mls/hr IV Q24HR GABINO; Protocol Last Admin: 10/07/19 13:04 Dose: Not Given Documented by: Sodium Chloride (Nacl 0.9% 500 Ml) 500 mls @ 50 mls/hr IV DIRECT GABINO Last Admin: 10/07/19 08:04 Dose: 50 mls/hr Documented by: Insulin Human Lispro (Humalog) 0 unit SUB-Q Q6HR GABINO; Protocol Last Admin: 10/07/19 13:04 Dose: Not Given Documented by: Ondansetron HCl (Zofran) 4 mg IV Q8H PRN PRN Reason: Nausea And Vomiting Sodium Chloride (Sodium Chloride Flush Syringe 10 Ml) 10 ml IV BID GABINO Last Admin: 10/07/19 13:04 Dose: Not Given Documented by: Sodium Chloride (Sodium Chloride Flush Syringe 10 Ml) 10 ml IV PRN PRN PRN Reason: LINE FLUSH Physical Examination - Physical Exam Narrative exam: Physical Exam: Constitutional: Alert, cooperative. No acute distress Head, Ears, Nose: Normocephalic, atraumatic. External ears, nose normal Eyes: Conjunctivae/corneas clear. No icterus. No ptosis. Neck: Supple, no meningeal signs Oral: dentition fair, no thrush Cardiovascular: S1, S2 normal. Respiratory: Good air entry, clear to auscultation bilaterally GI: Soft, non-tender; bowel sounds normal. No peritoneal signs. Musculoskeletal: Left hallux amputation site with discoloration, second toe red with distal ulcer. Skin: No rash or abscess Hem/Lymphatic: No palpable cervical or supraclavicular nodes. No lymphangitis Psych: Mood ok. Affect normal Neurological: Awake, alert, oriented. No gross abnormality - Constitutional Vitals: Vital Signs Temp Pulse Resp BP Pulse Ox 98.4 F 85 18 124/85 97 10/07/19 16:29 10/07/19 16:29 10/07/19 16:29 10/07/19 16:29 10/07/19 16:29 Temperature -Last 24 Hours Temperature 98.4 F Temperature 98.8 F Temperature 98 F Temperature 98 F Temperature 97.6 F Temperature 98.2 F Temperature 98.2 F Results - Labs CBC & Chem 7: 10/06/19 03:53 10/07/19 07:15 Labs: Abnormal lab results 10/06/19 10/07/19 10/07/19 Range/Units 18:47 01:00 06:26 Sodium (137-145) mmol/L Chloride (98-107) mmol/L Carbon Dioxide (22-30) mmol/L BUN (9-20) mg/dL Glucose (75-100) mg/dL POC Glucose 294 H 134 H 139 H (70-105) 10/07/19 Range/Units 07:15 Sodium 135 L (137-145) mmol/L Chloride 97.9 L (98-107) mmol/L Carbon Dioxide 21 L (22-30) mmol/L BUN 27 H (9-20) mg/dL Glucose 154 H (75-100) mg/dL POC Glucose (70-105) Assessment and Plan Cultures: Blood culture 10/06/2019 no growth to date Wound culture 10/06/2019 group B strep, staph aureus, gram-negative christopher A/P: 54-year-old male past medical history obesity, hypertension, diabetes, osteomyelitis of great toe admitted with wound infection concerning for osteomyelitis in the second toe. #Wound infection: Cultures polymicrobial as above, continue ceftriaxone for now pending GEMINI of staph aureus gram-negative christopher identification. Patient is very stable, as such no need to escalate therapy pending culture finalization. Recommend MRI of the foot to evaluate for osteomyelitis in the second toe given ulcer and redness. Pending surgical evaluation for possible debridement of wound. Follow-up blood cultures. #Diabetes: tight glycemic control for best outcomes. Recs: -Continue ceftriaxone -Follow-up culture finalization for ID and GEMINI. -Ordered MRI with contrast of the left foot -Follow-up surgical recommendations. Thank you for the consult, will continue to follow MD [facility] M: [phone] O: [phone] F: [phone]
[2019-10-07] MEDS ORDERED: cefTRIAXone/NS 2 GM/100 ML 2 GM/100 ML BAG IV SCH (18:00)
[2019-10-08] MEDS: GABAPENTIN 400 MG CAP PO SCH ×4 (00:29→17:11)
[2019-10-08] MEDS: INSULIN LISPRO 100 UNIT/ML SUB-Q SCH ×4 (00:30→17:32)
[2019-10-08] MEDS: HYDROcodone/ACETAMINOPHEN 5-325 MG TAB PO PRN ×2 (05:39→17:11)
[2019-10-08] MEDS ORDERED: LIDOCAINE (4%) 40 MG/ML TOPICAL SOLN 50 ML BOTTLE TP ONE (10:44)
--- NOTE | 2019-10-08 10:44 | Magnetic Resonance Report ---
MR LOWER EXTREMITY JOINT LEFT WITH AND WITHOUT CONTRAST HISTORY: Swelling, pain, evaluate for osteomyelitis of the second toe TECHNIQUE: Multisequence, multiplanar MRI before and after 18 cc of MultiHance intravenously. COMPARISON: 09/10/2019 FINDINGS: The great toe and distal first metatarsal have been amputated since the previous examination. There i s diffuse bone marrow edema and enhancement in the proximal first metatarsal consistent with osteomye litis. I suppose this could also be secondary to recent surgery. There is new subtle bone marrow edema and enhancement at the base and head of the second metatarsal c onsistent with osteomyelitis. This is a new finding since the previous exam. The soft tissue abscess near the second metatarsal head has been the right abdomen is no longer present. There is also subtle enhancement in the third metatarsal head which could represent early osteomyelit is. The remaining bony structures demonstrate normal marrow signal. There is diffuse soft tissue swelling and edema consistent with cellulitis and myositis. No focal sof t tissue abscess is identified on today's exam. Aside from the surgical changes the visualized musculotendinous structures are unremarkable. IMPRESSION: Surgical changes since 09/10/2019 exam as described. There is abnormal bone marrow signal and enhancement in the remaining first metatarsal, second metata rsal base and head, and possibly the third metatarsal head consistent with osteomyelitis. Cellulitis. Myositis. Soft tissue abscesses have resolved/been provided. No new soft tissue abscess. Signer Name: Samuel Villa Jr, MD Signed: 10/08/2019 10:39 AM Workstation Name: [id number]
--- NOTE | 2019-10-08 10:57 | Progress Note ---
Assessment and Plan Assessment and plan: Patient is a 54 yo Caucasion man with a history of Obesity, HTN, type 2 DM complicated by Peripheral Neuropathy and Left Great Toe Osteomyelitis s/p Amputation of Left Great Toe on 09/11/2019 who presents to [facility] ED due to worsening left foot ulcer. Patient was found to have left lower extremity swelling as well as diminished pulses to left lower extremity. Vascular surgery service consulted in ED. Patient underwent Angioplasty of left leg on 10/07/19. * MRI left leg with/without IMPRESSION: Surgical changes since 09/10/2019 exam as described. There is abnormal bone marrow signal and enhancement in the remaining first metatarsal, second metatarsal base and head, and possibly the third metatarsal head consistent with osteomyelitis. Cellulitis. Myositis. Soft tissue abscesses have resolved/been provided. No new soft tissue abscess. Left foot Osteomyelitis, ?acute on chronic: consulted ID, continue abx, await GS evaluation, Diabetic foot ulcer associated with diabetes mellitus with complication of Nonhealing left lower extremity diabetic wound/ulcer with PAD: s/p Angioplasty, treat with ASA and plavix Left foot cellulitis: consulted ID, treat with ABX Hypertension: Monitor blood pressure every shift, supportive care, continue medical management. Peripheral vascular disease related to nonhealing ulcer: treatment with Angioplasty Diabetes mellitus type 2: Sliding scale insulin, consistent carbohydrate diet, Accu-Chek, hypoglycemia protocol. DVT prophylaxis: SCD to bilateral lower extremities while in bed, patient is ambulatory. full code Disposition: continue inpatient care, await GS and ID evaluation History Interval history: Patient was seen and examined. Follow-up on current diagnosis of left foot osteo. Overnight uneventful as no events directly reported to me. Patient denies any chest pain, shortness breath, nausea/vomiting or severe headaches. Imaging, nursing note, chart, labs and old chart reviewed. Discussed with patient. Hospitalist Physical - Physical exam Narrative exam: Gen: WDWN, NAD, Awake, Alert, Orientated HEENT: NCAT, EOMI, PERRL, OP Clear Neck: supple, no adenopathy, no thyromegaly, no JVD CVS/Heart: RRR, normal S1S2, pulses present bilaterally Chest/Lungs: CTA B, Symmetrical chest expansion, good air entry bilaterally GI/Abdomen: soft, NTND, good bowel sounds, no guarding or rebound /Bladder: no suprapubic tenderness, no CVA or paraspinal tenderness Extermity/Skin: non healing left foot ulcer s/p amp left great toe MSK: FROM x 4 Neuro: CN 2-12 grossly intact, no new focal deficits Psych: calm - Constitutional Vitals: Temp Pulse Resp BP Pulse Ox 98.6 F 88 18 124/78 97 10/08/19 08:00 10/08/19 08:00 10/08/19 08:00 10/08/19 08:00 10/08/19 08:00 General appearance: Present: no acute distress Results - Labs CBC & Chem 7: 10/06/19 03:53 10/07/19 07:15 Labs: Laboratory Last Values WBC 9.5 K/mm3 (4.5-11.0) 10/06/19 03:53 RBC 3.95 M/mm3 (3.65-5.03) 10/06/19 03:53 Hgb 10.2 gm/dl (11.8-15.2) L 10/06/19 03:53 Hct 31.3 % (35.5-45.6) L 10/06/19 03:53 MCV 79 fl (84-94) L 10/06/19 03:53 MCH 26 pg (28-32) L 10/06/19 03:53 MCHC 33 % (32-34) 10/06/19 03:53 RDW 17.0 % (13.2-15.2) H 10/06/19 03:53 Plt Count 344 K/mm3 (140-440) 10/06/19 03:53 Sodium 135 mmol/L (137-145) L 10/07/19 07:15 Potassium 4.5 mmol/L (3.6-5.0) 10/07/19 07:15 Chloride 97.9 mmol/L (98-107) L 10/07/19 07:15 Carbon Dioxide 21 mmol/L (22-30) L 10/07/19 07:15 Anion Gap 21 mmol/L 10/07/19 07:15 BUN 27 mg/dL (9-20) H 10/07/19 07:15 Creatinine 1.1 mg/dL (0.8-1.5) 10/07/19 07:15 Estimated GFR > 60 ml/min 10/07/19 07:15 BUN/Creatinine Ratio 25 % 10/07/19 07:15 Glucose 154 mg/dL (75-100) H 10/07/19 07:15 POC Glucose 150 (70-105) H 10/08/19 08:10 Calcium 8.6 mg/dL (8.4-10.2) 10/07/19 07:15 Microbiology: Microbiology 10/06/19 08:56 Toe - Left Big Wound Culture - Preliminary Beta Hemolytic Strep Group B Staphylococcus Aureus Gram Negative Joey 10/06/19 Unknown Peripheral/Venous Blood Culture - Preliminary NO GROWTH AFTER 48 HOURS 10/06/19 Unknown Peripheral/Venous Blood Culture - Preliminary NO GROWTH AFTER 48 HOURS Cadena/IV: Voiding Method Urinal IV Catheter Type [Left Hand] INT / Saline Lock Active Medications - Current Medications Current Medications: Generic Name Dose Route Start Last Admin Trade Name Freq PRN Reason Stop Dose Admin Acetaminophen 650 mg 10/06/19 13:31 10/07/19 16:13 Tylenol PO 650 mg Q4H PRN Administration Pain MILD(1-3)/Fever >100.5/LAMBERT Acetaminophen/Hydrocodone Bitart 1 each 10/06/19 13:33 10/08/19 05:39 [place] 5/325 PO 1 each Q6HR PRN Administration PAIN Amlodipine Besylate 10 mg 10/07/19 10:00 10/07/19 13:04 Amlodipine PO Not Given QDAY [facility] Aspirin 81 mg 10/08/19 10:00 Halfprin Ec PO QDAY GABINO Clopidogrel Bisulfate 75 mg 10/08/19 10:00 Plavix PO QDAY [facility] Dextrose 50 ml 10/06/19 14:29 D50w (25gm) Syringe IV Q30MIN PRN Hypoglycemia Protocol Ferrous Sulfate 325 mg 10/07/19 10:00 10/07/19 13:04 Feosol PO Not Given DAILY GABINO Gabapentin 400 mg 10/06/19 14:00 10/08/19 05:39 Gabapentin PO 400 mg Q6HR GABINO Administration Sodium Chloride 500 mls @ 50 mls/hr 10/07/19 08:00 10/07/19 08:04 Nacl 0.9% 500 Ml IV 50 mls/hr DIRECT GABINO Administration Ceftriaxone Sodium 2 gm in 100 mls @ 200 mls/hr 10/07/19 18:00 10/07/19 21:09 Rocephin/Ns 2 Gm/100 Ml IV 200 mls/hr Q24H GABINO Administration Protocol Insulin Human Lispro 0 unit 10/06/19 18:00 10/08/19 07:38 Humalog SUB-Q Not Given Q6HR [facility] Protocol Ondansetron HCl 4 mg 10/06/19 13:31 Zofran IV Q8H PRN Nausea And Vomiting Sodium Chloride 10 ml 10/06/19 22:00 10/07/19 22:18 Sodium Chloride Flush Syringe 10 Ml IV 10 ml BID GABINO Administration Sodium Chloride 10 ml 10/06/19 13:31 Sodium Chloride Flush Syringe 10 Ml IV PRN PRN LINE FLUSH
[2019-10-08] MEDS: CLOPIDOGREL 75 MG TAB PO SCH (11:50)
[2019-10-08] MEDS: FERROUS SULFATE 325 MG TAB PO SCH (11:51)
[2019-10-08] MEDS: ASPIRIN EC 81 MG TAB PO SCH (11:51)
[2019-10-08] MEDS: amLODIPine 10 MG TAB PO SCH (11:51)
--- NOTE | 2019-10-08 11:56 | Procedure Note ---
Date of procedure: 10/08/19 Pre-op diagnosis: Chronic non-pressure wound, left foot with exposed SQ Post-op diagnosis: same Procedure: Debridement of left foot wound Description of procedure: Pt was supine on his bed. The left foot was prepped and draped. Necrotic SQ tissue and biofilm was surgically excisionally debrided from the wound at his great toe TMA site with a curette. Bleeding was minimal and was controlled with pressure. Procedure was well tolerated. Wound was dr essed by the Wound Care nurse. Final wound measurements: 6 X 3 X 3 cm I also examined the pt's left 2nd toe and left foot MRI. I will schedule him for amputation of his left 2nd toe tomorrow. NPO after MN. Anesthesia: none (Topical Lidocaine, 4%) Surgeon: HAO ADY Estimated blood loss: minimal Pathology: none Specimen disposition: discarded Condition: stable Disposition: no change
--- NOTE | 2019-10-08 15:53 | Progress Note ---
Assessment and Plan Cultures: Blood culture 10/06/2019 no growth to date Wound culture 10/06/2019 group B strep, MSSA, ESBL E. coli A/P: 54-year-old male past medical history obesity, hypertension, diabetes, osteomyelitis of great toe admitted with wound infection concerning for osteomyelitis in the second toe. #Wound infection: Cultures polymicrobial as above, continue ceftriaxone for now pending GEMINI of staph aureus gram-negative christopher identification. Patient is very stable, as such no need to escalate therapy pending culture finalization. MRI was significant osteomyelitis and cellulitis. Patient going back for amputation of the second toe today, however osteomyelitis remains in the remainder of the first metatarsal. Assuming no further debridement do not improve metatarsal, patient will require 6 weeks of antibiotic therapy. Wound culture currently polymicrobial, however bone culture may be more specific. Given the patient is self-pay, would have we can do to reduce his cost will be beneficial. Recommend obtaining proximal pathology of bone, and bone cultures from surgery. #Diabetes: tight glycemic control for best outcomes. Recs: -Stop ceftriaxone -Started ertapenem 1 g daily -Please obtain proximal bone specimen for pathology from amputation -Please obtain bone cultures from wound and amputation -Likely need 6 weeks of antibiotic therapy for osteomyelitis Thank you for the consult, will continue to follow Daylin Nicholson MD [facility] M: [phone] O: [phone] F: [phone] Subjective Date of service: 10/08/19 Interval history: Patient had bedside debridement of subcutaneous necrotic tissue today by Dr. Dee. Remains afebrile, no other changes. Imaging personally reviewed: MRI left foot: Osteomyelitis in remainder of first metatarsal, second metatarsal and possibly third metatarsal. Objective - Exam Narrative Exam: Physical Exam: Constitutional: Alert, cooperative. No acute distress Head, Ears, Nose: Normocephalic, atraumatic. External ears, nose normal Eyes: Conjunctivae/corneas clear. No icterus. No ptosis. Neck: Supple, no meningeal signs Oral: dentition fair, no thrush Cardiovascular: S1, S2 normal. Respiratory: Good air entry, clear to auscultation bilaterally GI: Soft, non-tender; bowel sounds normal. No peritoneal signs. Musculoskeletal: Left hallux amputation site with discoloration, second toe red with distal ulcer. Skin: No rash or abscess Hem/Lymphatic: No palpable cervical or supraclavicular nodes. No lymphangitis Psych: Mood ok. Affect normal Neurological: Awake, alert, oriented. No gross abnormality - Constitutional Vitals: Vital Signs Temp Pulse Resp BP Pulse Ox 98.3 F 89 18 126/81 97 10/08/19 12:00 10/08/19 12:00 10/08/19 12:00 10/08/19 12:00 10/08/19 12:00 Temperature -Last 24 Hours Temperature 98.3 F Temperature 98.6 F Temperature 98.2 F Temperature 98.5 F Temperature 99.2 F Temperature 98.4 F - Labs CBC & Chem 7: 10/06/19 03:53 10/07/19 07:15 Labs: Abnormal lab results 10/07/19 10/08/19 10/08/19 Range/Units 17:38 00:22 06:13 POC Glucose 213 H 145 H 161 H (70-105) 10/08/19 10/08/19 Range/Units 08:10 12:19 POC Glucose 150 H 210 H (70-105)
[2019-10-08] MEDS: ERTAPENEM 1 GM in SODIUM CHLORIDE 0.9% 50 ML IV SCH (18:14)
[2019-10-09] MEDS: GABAPENTIN 400 MG CAP PO SCH ×4 (00:10→18:04)
[2019-10-09] MEDS: HYDROcodone/ACETAMINOPHEN 5-325 MG TAB PO PRN ×2 (00:13→15:33)
[2019-10-09] MEDS: INSULIN LISPRO 100 UNIT/ML SUB-Q SCH ×4 (00:19→18:05)
--- NOTE | 2019-10-09 09:36 | Anesthesia Consultation ---
Anesthesia Consult and Med Hx Date of service: 10/09/19 - Airway Anesthetic Teeth Evaluation: Good ROM Head & Neck: Adequate Mental/Hyoid Distance: Adequate Mallampati Class: Class I Intubation Access Assessment: Good - Pulmonary Exam CTA: Yes - Pre-Operative Health Status ASA Pre-Surgery Classification: ASA3 Proposed Anesthetic Plan: General - Pulmonary Hx Smoking: No Hx Asthma: No SOB: No COPD: No Hx Pneumonia: No - Cardiovascular System Hx Hypertension: Yes Hx Heart Attack/AMI: No Hx Cardia Arrhythmia: No Hx Peripheral Vascular Disease: Yes - Central Nervous System Hx Psychiatric Problems: No - Gastrointestinal Hx Gastroesophageal Reflux Disease: No - Endocrine Hx Renal Disease: Yes (Chronic Renal Disease) Hx End Stage Renal Disease: No Hx Liver Disease: No Hx Non-Insulin Dependent Diabetes: Yes Hx Hypothyroidism: No Hx Hyperthyroidism: No - Other Systems Hx Alcohol Use: No Hx Substance Use: No Hx Obesity: No - Additional Comments Anesthesia Medical History Comments: Patient denied previous anesthesia related complication. H/H- 10.2/31.3; K- 4.5
--- NOTE | 2019-10-09 09:38 | Anesthesia Day of Surgery ---
Anesthesia Day of Surgery - Day of Surgery Patient Examined: Yes Patient H&P Reviewed: Yes Patient is NPO: Yes
[2019-10-09] MEDS: FERROUS SULFATE 325 MG TAB PO SCH (10:20)
[2019-10-09] MEDS: amLODIPine 10 MG TAB PO SCH (10:20)
[2019-10-09] MEDS: CLOPIDOGREL 75 MG TAB PO SCH ×2 (10:20→10:44)
[2019-10-09] MEDS: ASPIRIN EC 81 MG TAB PO SCH (10:20)
[2019-10-09] MEDS: SODIUM CHLORIDE 0.9% 1000 ML 1,000 ML IV SCH ×2 (11:35→14:51)
[2019-10-09] MEDS ORDERED: LIDOCAINE PF 100 MG/5 ML (CARDIAC SYRINGE) IV ONE (11:39)
[2019-10-09] MEDS ORDERED: fentaNYL 100 MCG/2 ML INJ ONE (11:39)
[2019-10-09] MEDS ORDERED: propofoL 200 MG/20 ML VIAL IV ONE (11:39)
[2019-10-09] MEDS ORDERED: ONDANSETRON 4 MG/2 ML INJ ONE (11:39)
[2019-10-09] MEDS ORDERED: dexAMETHasone 20 MG/5 ML VIAL ONE (11:39)
[2019-10-09] MEDS ORDERED: SODIUM CHLORIDE 0.9% IRR 1,500 ML BOTTLE IR ONE ×2 (13:07)
--- NOTE | 2019-10-09 13:34 | Procedure Note ---
Date of procedure: 10/09/19 Pre-op diagnosis: 1) Osteomyelitis of left 2nd toe/metatarsal head 2) Right great toe abscess Post-op diagnosis: same Procedure: 1) TMA of left 2nd toe 2) FNA and I&D of right great toe abscess Description of procedure: Pt was placed supine on the OR table. General anesthesia was administered by LMA. Bilateral feet were prepped and draped. An incision was made about the left 2nd toe with the Bovie. The left 2nd toe was amputated at the MTP joint with the Bovie. Hemostasis was obtained with the Bovie. Periosteum was elevated off of the distal shaft of the left 2nd metatarsal. The distal shaft of the 2nd metatarsal was amputated with a bone saw. Wound was packed open with a dilute Betadine moistened Kerlix roll followed by 4 X 4's and a Kerlix wrap about the foot. The towels placed over the right foot were removed. FNA of the right great toe abscess was performed with aspiration of 1 cc of creamy thick pus. This pus was sent for C&S. The most fluctuant portion of the abscess was incised with the Bovie. This resulted in drainage of additional pus. The abscess cavity was fully unroofed with the Bovie with the incision extending onto the plantar aspect of the right great toe. Hemostasis was obtained with the Bovie. Wound was irrigated with warm saline. Wound was packed open with a dilute Betadine moistened Kerlix roll followed by 4 X 4's and a Kerlix roll about the foot. Pt tolerated the procedure well. Pt was taken to PACU in stable condition. Anesthesia: other (LMA) Surgeon: HAO DAY Estimated blood loss: 50-100ml Pathology: list (1) Left 2nd toe and metatarsal head 2) C&S of right great toe abscess) Specimen disposition: to lab Condition: stable Disposition: PACU
--- NOTE | 2019-10-09 14:12 | Progress Note ---
Assessment and Plan Assessment and plan: Patient is a 54 yo Caucasion man with a history of Obesity, HTN, type 2 DM complicated by Peripheral Neuropathy and Left Great Toe Osteomyelitis s/p Amputation of Left Great Toe on 09/11/2019 who presents to [facility] ED due to worsening left foot ulcer. Patient was found to have left lower extremity swelling as well as diminished pulses to left lower extremity. Vascular surgery service consulted in ED. Patient underwent Angioplasty of left leg on 10/07/19. * MRI left leg with/without IMPRESSION: Surgical changes since 09/10/2019 exam as described. There is abnormal bone marrow signal and enhancement in the remaining first metatarsal, second metatarsal base and head, and possibly the third metatarsal head consistent with osteomyelitis. Cellulitis. Myositis. Soft tissue abscesses have resolved/been provided. No new soft tissue abscess. Left foot Osteomyelitis, ?acute on chronic: consulted ID, continue abx, await GS evaluation, Diabetic foot ulcer associated with diabetes mellitus with complication of Nonhealing left lower extremity diabetic wound/ulcer with PAD: s/p Angioplasty, treat with ASA and plavix Left foot cellulitis: consulted ID, treat with ABX Hypertension: Monitor blood pressure every shift, supportive care, continue medical management. Peripheral vascular disease related to nonhealing ulcer: treatment with Angioplasty Diabetes mellitus type 2: Sliding scale insulin, consistent carbohydrate diet, Accu-Chek, hypoglycemia protocol. DVT prophylaxis: SCD to bilateral lower extremities while in bed, patient is ambulatory. full code Disposition: continue inpatient care, 10/09/2019: Going for amputation of 2nd left toe and debridement today. ESBL growing so changing ABX History Interval history: Patient was seen and examined. Follow-up on current diagnosis of left foot osteo. Overnight uneventful as no events directly reported to me. Patient denies any chest pain, shortness breath, nausea/vomiting or severe headaches. Imaging, nursing note, chart, labs and old chart reviewed. Discussed with patient. Hospitalist Physical - Physical exam Narrative exam: Gen: WDWN, NAD, Awake, Alert, Orientated HEENT: NCAT, EOMI, PERRL, OP Clear Neck: supple, no adenopathy, no thyromegaly, no JVD CVS/Heart: RRR, normal S1S2, pulses present bilaterally Chest/Lungs: CTA B, Symmetrical chest expansion, good air entry bilaterally GI/Abdomen: soft, NTND, good bowel sounds, no guarding or rebound /Bladder: no suprapubic tenderness, no CVA or paraspinal tenderness Extermity/Skin: non healing left foot ulcer s/p amp left great toe MSK: FROM x 4 Neuro: CN 2-12 grossly intact, no new focal deficits Psych: calm - Constitutional Vitals: Temp Pulse Resp BP Pulse Ox 97.3 F L 89 14 134/83 99 10/09/19 13:21 10/09/19 13:50 10/09/19 13:50 10/09/19 13:50 10/09/19 13:50 General appearance: Present: no acute distress Results - Labs CBC & Chem 7: 10/06/19 03:53 10/07/19 07:15 Labs: Laboratory Last Values WBC 9.5 K/mm3 (4.5-11.0) 10/06/19 03:53 RBC 3.95 M/mm3 (3.65-5.03) 10/06/19 03:53 Hgb 10.2 gm/dl (11.8-15.2) L 10/06/19 03:53 Hct 31.3 % (35.5-45.6) L 10/06/19 03:53 MCV 79 fl (84-94) L 10/06/19 03:53 MCH 26 pg (28-32) L 10/06/19 03:53 MCHC 33 % (32-34) 10/06/19 03:53 RDW 17.0 % (13.2-15.2) H 10/06/19 03:53 Plt Count 344 K/mm3 (140-440) 10/06/19 03:53 Sodium 135 mmol/L (137-145) L 10/07/19 07:15 Potassium 4.5 mmol/L (3.6-5.0) 10/07/19 07:15 Chloride 97.9 mmol/L (98-107) L 10/07/19 07:15 Carbon Dioxide 21 mmol/L (22-30) L 10/07/19 07:15 Anion Gap 21 mmol/L 10/07/19 07:15 BUN 27 mg/dL (9-20) H 10/07/19 07:15 Creatinine 1.1 mg/dL (0.8-1.5) 10/07/19 07:15 Estimated GFR > 60 ml/min 10/07/19 07:15 BUN/Creatinine Ratio 25 % 10/07/19 07:15 Glucose 154 mg/dL (75-100) H 10/07/19 07:15 POC Glucose 180 (70-105) H 10/09/19 13:49 Calcium 8.6 mg/dL (8.4-10.2) 10/07/19 07:15 Microbiology: Microbiology 10/06/19 Unknown Peripheral/Venous Blood Culture - Preliminary NO GROWTH AFTER 72 HOURS 10/06/19 Unknown Peripheral/Venous Blood Culture - Preliminary NO GROWTH AFTER 72 HOURS 10/06/19 08:56 Toe - Left Big Wound Culture - Final Beta Hemolytic Strep Group B Staphylococcus Aureus Escherichia Coli Cadena/IV: Voiding Method Toilet IV Catheter Type [Left Hand] INT / Saline Lock Active Medications - Current Medications Current Medications: Generic Name Dose Route Start Last Admin Trade Name Freq PRN Reason Stop Dose Admin Acetaminophen 650 mg 10/06/19 13:31 10/07/19 16:13 Tylenol PO 650 mg Q4H PRN Administration Pain MILD(1-3)/Fever >100.5/LAMBERT Acetaminophen/Hydrocodone Bitart 1 each 10/06/19 13:33 10/09/19 00:13 [place] 5/325 PO 1 each Q6HR PRN Administration PAIN Amlodipine Besylate 10 mg 10/07/19 10:00 10/09/19 10:20 Amlodipine PO Not Given QDAY [facility] Aspirin 81 mg 10/08/19 10:00 10/09/19 10:20 Halfprin Ec PO Not Given QDAY GABINO Clopidogrel Bisulfate 75 mg 10/08/19 10:00 10/09/19 10:44 Plavix PO 75 mg QDAY GABINO Administration Dextrose 50 ml 10/06/19 14:29 D50w (25gm) Syringe IV Q30MIN PRN Hypoglycemia Protocol Ferrous Sulfate 325 mg 10/07/19 10:00 10/09/19 10:20 Feosol PO Not Given DAILY GABINO Gabapentin 400 mg 10/06/19 14:00 10/09/19 11:35 Gabapentin PO 400 mg Q6HR GABINO Administration Sodium Chloride 500 mls @ 50 mls/hr 10/07/19 08:00 10/08/19 21:32 Nacl 0.9% 500 Ml IV Infused DIRECT GABINO Infusion Ertapenem 1 gm/ Sodium 50 mls @ 100 mls/hr 10/08/19 16:00 10/08/19 21:33 Chloride IV Infused Q24H GABINO Infusion Sodium Chloride 1,000 mls @ 75 mls/hr 10/09/19 11:30 10/09/19 11:35 Nacl 0.9% 1000 Ml IV 75 mls/hr DIRECT GABINO Administration Insulin Human Lispro 0 unit 10/06/19 18:00 10/09/19 12:33 Humalog SUB-Q Not Given Q6HR [facility] Protocol Ondansetron HCl 4 mg 10/06/19 13:31 Zofran IV Q8H PRN Nausea And Vomiting Sodium Chloride 10 ml 10/06/19 22:00 10/09/19 10:47 Sodium Chloride Flush Syringe 10 Ml IV 10 ml BID GABINO Administration Sodium Chloride 10 ml 10/06/19 13:31 Sodium Chloride Flush Syringe 10 Ml IV PRN PRN LINE FLUSH
[2019-10-09] MEDS ORDERED: PHENYLEPHRINE/NS 1,000 MCG/10 ML SYRINGE (OR USE) IV ONE (14:30)
--- NOTE | 2019-10-09 15:15 | Progress Note ---
Assessment and Plan Cultures: Blood culture 10/06/2019 no growth to date Wound culture 10/06/2019 group B strep, MSSA, ESBL E. coli Wound culture (surgery) 10/09/2019 pending A/P: 54-year-old male past medical history obesity, hypertension, diabetes, osteomyelitis of great toe admitted with wound infection concerning for osteomyelitis in the second toe. #Wound infection: Cultures polymicrobial as above, continue ceftriaxone for now pending GEMINI of staph aureus gram-negative christopher identification. Patient is very stable, as such no need to escalate therapy pending culture finalization. MRI was significant osteomyelitis and cellulitis. Patient going back for amputation of the second toe today, however osteomyelitis remains in the remainder of the first metatarsal. Assuming no further debridement do not improve metatarsal, patient will require 6 weeks of antibiotic therapy. Wound culture currently polymicrobial, however bone culture may be more specific. Given the patient is self-pay, would have we can do to reduce his cost will be beneficial. Recommend obtaining proximal pathology of bone, and bone cultures from surgery. #Diabetes: tight glycemic control for best outcomes. Recs: -Continue ertapenem 1 g daily -Follow up surgical cultures. Ideally there will be more focused results and we could de-escalate from ertapenem for retirement antibiotics -Ordered PICC line -Await final cultures before case management consult for home antibiotics. -Likely need 6 weeks of antibiotic therapy for osteomyelitis to preserve 3rd toe. Thank you for the consult, will continue to follow Daylin Nicholson MD [facility] ([facility]) M: [phone] O: [phone] F: [phone] Subjective Date of service: 10/09/19 Interval history: S/p amputation of the second toe and I&D of wound abscess. No new complaints Objective - Exam Narrative Exam: Physical Exam: Constitutional: Alert, cooperative. No acute distress Head, Ears, Nose: Normocephalic, atraumatic. External ears, nose normal Eyes: Conjunctivae/corneas clear. No icterus. No ptosis. Neck: Supple, no meningeal signs Oral: dentition fair, no thrush Cardiovascular: S1, S2 normal. Respiratory: Good air entry, clear to auscultation bilaterally GI: Soft, non-tender; bowel sounds normal. No peritoneal signs. Musculoskeletal: Foot wrapped s/p surgery Skin: No rash or abscess Hem/Lymphatic: No palpable cervical or supraclavicular nodes. No lymphangitis Psych: Mood ok. Affect normal Neurological: Awake, alert, oriented. No gross abnormality - Constitutional Vitals: Vital Signs Temp Pulse Resp BP Pulse Ox 97.7 F 78 15 133/82 97 10/09/19 14:20 10/09/19 14:20 10/09/19 14:20 10/09/19 14:20 10/09/19 14:20 Temperature -Last 24 Hours Temperature 97.7 F Temperature 97.3 F Temperature 99.1 F Temperature 99.1 F Temperature 98.0 F Temperature 98.1 F Temperature 98.6 F Temperature 98.5 F Temperature 98.4 F - Labs CBC & Chem 7: 10/06/19 03:53 10/07/19 07:15 Labs: Abnormal lab results 10/08/19 10/09/19 10/09/19 Range/Units 16:44 00:25 05:47 POC Glucose 184 H 157 H 139 H (70-105) 10/09/19 10/09/19 Range/Units 11:28 13:49 POC Glucose 163 H 180 H (70-105)
[2019-10-09] MEDS: ERTAPENEM 1 GM in SODIUM CHLORIDE 0.9% 50 ML IV SCH (15:33)
[2019-10-10] MEDS: GABAPENTIN 400 MG CAP PO SCH ×4 (00:36→17:34)
[2019-10-10] MEDS: INSULIN LISPRO 100 UNIT/ML SUB-Q SCH ×4 (00:36→17:33)
[2019-10-10] MEDS: HYDROcodone/ACETAMINOPHEN 5-325 MG TAB PO PRN ×3 (00:36→20:37)
[2019-10-10] MEDS: SODIUM CHLORIDE 0.9% 1000 ML 1,000 ML IV SCH ×2 (05:15→17:34)
[2019-10-10] MEDS: amLODIPine 10 MG TAB PO SCH (11:11)
[2019-10-10] MEDS: CLOPIDOGREL 75 MG TAB PO SCH (11:11)
[2019-10-10] MEDS: FERROUS SULFATE 325 MG TAB PO SCH (11:12)
[2019-10-10] MEDS: ASPIRIN EC 81 MG TAB PO SCH (11:12)
--- NOTE | 2019-10-10 15:20 | Progress Note ---
Assessment and Plan Assessment and plan: Patient is a 54 yo Caucasion man with a history of Obesity, HTN, type 2 DM complicated by Peripheral Neuropathy and Left Great Toe Osteomyelitis s/p Amputation of Left Great Toe on 09/11/2019 who presents to [facility] ED due to worsening left foot ulcer. Patient was found to have left lower extremity swelling as well as diminished pulses to left lower extremity. Vascular surgery service consulted in ED. Patient underwent Angioplasty of left leg on 10/07/19. * MRI left leg with/without IMPRESSION: Surgical changes since 09/10/2019 exam as described. There is abnormal bone marrow signal and enhancement in the remaining first metatarsal, second metatarsal base and head, and possibly the third metatarsal head consistent with osteomyelitis. Cellulitis. Myositis. Soft tissue abscesses have resolved/been provided. No new soft tissue abscess. Left foot Osteomyelitis, ?acute on chronic: consulted ID, continue abx, await GS evaluation, Diabetic foot ulcer associated with diabetes mellitus with complication of Nonhealing left lower extremity diabetic wound/ulcer with PAD: s/p Angioplasty, treat with ASA and plavix Left foot cellulitis: consulted ID, treat with ABX Hypertension: Monitor blood pressure every shift, supportive care, continue medical management. Peripheral vascular disease related to nonhealing ulcer: treatment with Angioplasty Diabetes mellitus type 2: Sliding scale insulin, consistent carbohydrate diet, Accu-Chek, hypoglycemia protocol. DVT prophylaxis: SCD to bilateral lower extremities while in bed, patient is ambulatory. full code Disposition: continue inpatient care, 10/09/2019: Going for amputation of 2nd left toe and debridement today. ESBL growing so changing ABX 10/10/19: Pt seen and I spoke with him, PICC done, awaiting surgical culture to determine which Abx to go home with. Will need to get approval from [employer] because he is unInsured. We paid for last time he went home for IV abx but that was for only 9 days. its appears now he will need 6 week of IV abx. History Interval history: Patient was seen and examined. Follow-up on current diagnosis of left foot osteo. Overnight uneventful as no events directly reported to me. Patient denies any chest pain, shortness breath, nausea/vomiting or severe headaches. Imaging, nursing note, chart, labs and old chart reviewed. Discussed with patient. Hospitalist Physical - Physical exam Narrative exam: Exam per yesterday due to COVID 19 pandemic and lack of PPE - Constitutional Vitals: Temp Pulse Resp BP Pulse Ox 98.0 F 76 18 122/81 95 10/10/19 12:10 10/10/19 12:10 10/10/19 12:10 10/10/19 12:10 10/10/19 12:10 General appearance: Present: no acute distress Results - Labs CBC & Chem 7: 10/06/19 03:53 10/07/19 07:15 Labs: Laboratory Last Values WBC 9.5 K/mm3 (4.5-11.0) 10/06/19 03:53 RBC 3.95 M/mm3 (3.65-5.03) 10/06/19 03:53 Hgb 10.2 gm/dl (11.8-15.2) L 10/06/19 03:53 Hct 31.3 % (35.5-45.6) L 10/06/19 03:53 MCV 79 fl (84-94) L 10/06/19 03:53 MCH 26 pg (28-32) L 10/06/19 03:53 MCHC 33 % (32-34) 10/06/19 03:53 RDW 17.0 % (13.2-15.2) H 10/06/19 03:53 Plt Count 344 K/mm3 (140-440) 10/06/19 03:53 Sodium 135 mmol/L (137-145) L 10/07/19 07:15 Potassium 4.5 mmol/L (3.6-5.0) 10/07/19 07:15 Chloride 97.9 mmol/L (98-107) L 10/07/19 07:15 Carbon Dioxide 21 mmol/L (22-30) L 10/07/19 07:15 Anion Gap 21 mmol/L 10/07/19 07:15 BUN 27 mg/dL (9-20) H 10/07/19 07:15 Creatinine 1.1 mg/dL (0.8-1.5) 10/07/19 07:15 Estimated GFR > 60 ml/min 10/07/19 07:15 BUN/Creatinine Ratio 25 % 10/07/19 07:15 Glucose 154 mg/dL (75-100) H 10/07/19 07:15 POC Glucose 242 (70-105) H 10/10/19 11:40 Calcium 8.6 mg/dL (8.4-10.2) 10/07/19 07:15 C-Reactive Protein 6.80 mg/dL (0.00-1.30) H 10/10/19 11:51 Microbiology: Microbiology 10/09/19 Unknown Toe - Right Big Surgical Culture - Preliminary 10/06/19 Unknown Peripheral/Venous Blood Culture - Preliminary NO GROWTH AFTER 4 DAYS 10/06/19 Unknown Peripheral/Venous Blood Culture - Preliminary NO GROWTH AFTER 4 DAYS Cadena/IV: Voiding Method Urinal IV Catheter Type [Left Forearm INT / Saline Lock ] IV Catheter Type [Left Upper PICC Line arm] IV Catheter Type [Left Hand] INT / Saline Lock Active Medications - Current Medications Current Medications: Generic Name Dose Route Start Last Admin Trade Name Freq PRN Reason Stop Dose Admin Acetaminophen 650 mg 10/06/19 13:31 10/07/19 16:13 Tylenol PO 650 mg Q4H PRN Administration Pain MILD(1-3)/Fever >100.5/LAMBERT Acetaminophen/Hydrocodone Bitart 1 each 10/06/19 13:33 10/10/19 11:23 [place] 5/325 PO 1 each Q6HR PRN Administration PAIN Amlodipine Besylate 10 mg 10/07/19 10:00 10/10/19 11:11 Amlodipine PO 10 mg QDAY GABINO Administration Aspirin 81 mg 10/08/19 10:00 10/10/19 11:12 Halfprin Ec PO 81 mg QDAY GABINO Administration Clopidogrel Bisulfate 75 mg 10/08/19 10:00 10/10/19 11:11 Plavix PO 75 mg QDAY GABINO Administration Dextrose 50 ml 10/06/19 14:29 D50w (25gm) Syringe IV Q30MIN PRN Hypoglycemia Protocol Ferrous Sulfate 325 mg 10/07/19 10:00 10/10/19 11:12 Feosol PO 325 mg DAILY GABINO Administration Gabapentin 400 mg 10/06/19 14:00 10/10/19 11:12 Gabapentin PO 400 mg Q6HR GABINO Administration Sodium Chloride 500 mls @ 50 mls/hr 10/07/19 08:00 10/08/19 21:32 Nacl 0.9% 500 Ml IV Infused DIRECT GABINO Infusion Ertapenem 1 gm/ Sodium 50 mls @ 100 mls/hr 10/08/19 16:00 10/09/19 15:33 Chloride IV 100 mls/hr Q24H GABINO Administration Sodium Chloride 1,000 mls @ 75 mls/hr 10/09/19 11:30 10/10/19 05:15 Nacl 0.9% 1000 Ml IV 75 mls/hr DIRECT GABINO Administration Insulin Human Lispro 0 unit 10/06/19 18:00 10/10/19 13:02 Humalog SUB-Q 3 unit Q6HR GABINO Administration Protocol Ondansetron HCl 4 mg 10/06/19 13:31 Zofran IV Q8H PRN Nausea And Vomiting Sodium Chloride 10 ml 10/06/19 22:00 10/10/19 12:20 Sodium Chloride Flush Syringe 10 Ml IV Not Given BID GABINO Sodium Chloride 10 ml 10/06/19 13:31 Sodium Chloride Flush Syringe 10 Ml IV PRN PRN LINE FLUSH
--- NOTE | 2019-10-10 16:14 | Progress Note ---
Assessment and Plan Cultures: Blood culture 10/06/2019 no growth to date Wound culture 10/06/2019 group B strep, MSSA, ESBL E. coli Wound culture (surgery) 10/09/2019 pending A/P: 54-year-old male past medical history obesity, hypertension, diabetes, osteomyelitis of great toe admitted with wound infection concerning for osteomyelitis in the second toe. #Wound infection: Cultures polymicrobial as above, continue ceftriaxone for now pending GEMINI of staph aureus gram-negative christopher identification. Patient is very stable, as such no need to escalate therapy pending culture finalization. MRI was significant osteomyelitis and cellulitis. Patient going back for amputation of the second toe today, however osteomyelitis remains in the remainder of the first metatarsal. Assuming no further debridement do not improve metatarsal, patient will require 6 weeks of antibiotic therapy. #Diabetes: tight glycemic control for best outcomes. Recs: -Continue ertapenem 1 g daily -Ordered PICC line -Likely need 6 weeks of antibiotic therapy for osteomyelitis to preserve 3rd toe. -Case management for 6 weeks of ertapenem 1 g every day stop date 11/20/2019 Thank you for the consult, will sign off. Please call with questions. Daylin Nicholson MD [facility] ([facility]) M: [phone] O: [phone] F: [phone] Subjective Date of service: 10/10/19 Interval history: Patient with no new complaints at this time. Afebrile Objective - Exam Narrative Exam: Physical Exam: Constitutional: Alert, cooperative. No acute distress Head, Ears, Nose: Normocephalic, atraumatic. External ears, nose normal Eyes: Conjunctivae/corneas clear. No icterus. No ptosis. Neck: Supple, no meningeal signs Oral: dentition fair, no thrush Cardiovascular: S1, S2 normal. Respiratory: Good air entry, clear to auscultation bilaterally GI: Soft, non-tender; bowel sounds normal. No peritoneal signs. Musculoskeletal: Both feet wrapped after surgery. Skin: No rash or abscess Hem/Lymphatic: No palpable cervical or supraclavicular nodes. No lymphangitis Psych: Mood ok. Affect normal Neurological: Awake, alert, oriented. No gross abnormality - Constitutional Vitals: Vital Signs Temp Pulse Resp BP Pulse Ox 98.5 F 86 18 120/79 95 03/27/20 15:25 10/10/19 15:25 10/10/19 15:25 10/10/19 15:25 10/10/19 15:25 Temperature -Last 24 Hours Temperature 98.5 F Temperature 98.0 F Temperature 98.1 F Temperature 99.5 F Temperature 97.3 F Temperature 98.6 F Temperature 98.0 F Temperature 98.0 F - Labs CBC & Chem 7: 10/06/19 03:53 10/07/19 07:15 Labs: Abnormal lab results 10/09/19 10/10/19 10/10/19 Range/Units 17:42 00:25 06:27 POC Glucose 291 H 232 H 168 H (70-105) C-Reactive Protein (0.00-1.30) mg/dL 10/10/19 10/10/19 Range/Units 11:40 11:51 POC Glucose 242 H (70-105) C-Reactive Protein 6.80 H (0.00-1.30) mg/dL
[2019-10-10] MEDS: ERTAPENEM 1 GM in SODIUM CHLORIDE 0.9% 50 ML IV SCH (16:21)
[2019-10-11] MEDS: GABAPENTIN 400 MG CAP PO SCH ×5 (00:15→16:59)
[2019-10-11] MEDS: SODIUM CHLORIDE 0.9% 1000 ML 1,000 ML IV SCH ×2 (05:20→16:59)
[2019-10-11] MEDS: HYDROcodone/ACETAMINOPHEN 5-325 MG TAB PO PRN ×2 (05:26→11:48)
[2019-10-11] MEDS: INSULIN LISPRO 100 UNIT/ML SUB-Q SCH ×4 (09:25→16:59)
[2019-10-11] MEDS: FERROUS SULFATE 325 MG TAB PO SCH (09:28)
[2019-10-11] MEDS: amLODIPine 10 MG TAB PO SCH (09:28)
[2019-10-11] MEDS: ASPIRIN EC 81 MG TAB PO SCH (09:28)
[2019-10-11] MEDS: CLOPIDOGREL 75 MG TAB PO SCH (09:28)
--- NOTE | 2019-10-11 11:09 | Progress Note ---
Assessment and Plan Assessment and plan: Patient is a 54 yo Caucasion man with a history of Obesity, HTN, type 2 DM complicated by Peripheral Neuropathy and Left Great Toe Osteomyelitis s/p Amputation of Left Great Toe on 09/11/2019 who presents to [facility] ED due to worsening left foot ulcer. Patient was found to have left lower extremity swelling as well as diminished pulses to left lower extremity. Vascular surgery service consulted in ED. Patient underwent Angioplasty of left leg on 10/07/19. * MRI left leg with/without IMPRESSION: Surgical changes since 09/10/2019 exam as described. There is abnormal bone marrow signal and enhancement in the remaining first metatarsal, second metatarsal base and head, and possibly the third metatarsal head consistent with osteomyelitis. Cellulitis. Myositis. Soft tissue abscesses have resolved/been provided. No new soft tissue abscess. Left foot Osteomyelitis, ?acute on chronic: consulted ID, continue abx, await GS evaluation, Diabetic foot ulcer associated with diabetes mellitus with complication of Nonhealing left lower extremity diabetic wound/ulcer with PAD: s/p Angioplasty, treat with ASA and plavix Left foot cellulitis: consulted ID, treat with ABX Hypertension: Monitor blood pressure every shift, supportive care, continue medical management. Peripheral vascular disease related to nonhealing ulcer: treatment with Angioplasty Diabetes mellitus type 2: Sliding scale insulin, consistent carbohydrate diet, Accu-Chek, hypoglycemia protocol. DVT prophylaxis: SCD to bilateral lower extremities while in bed, patient is ambulatory. full code Disposition: continue inpatient care, 10/09/2019: Going for amputation of 2nd left toe and debridement today. ESBL growing so changing ABX 10/10/19: Pt seen and I spoke with him, PICC done, awaiting surgical culture to determine which Abx to go home with. Will need to get approval from [employer] because he is unInsured. We paid for last time he went home for IV abx but that was for only 9 days. its appears now he will need 6 week of IV abx. 10/11/19: 6 weeks of ertapenem 1 g every day stop date 11/20/2019, home abx setup History Interval history: Patient was seen and examined. Follow-up on current diagnosis of left foot osteo . Overnight uneventful as no events directly reported to me. Patient denies any chest pain, shortness breath, nausea/vomiting or severe headaches. Imaging, nursing note, chart, labs and old chart reviewed. Discussed with patient. Hospitalist Physical - Physical exam Narrative exam: Exam per yesterday due to COVID 19 pandemic and lack of PPE - Constitutional Vitals: Temp Pulse Resp BP Pulse Ox 98.0 F 73 18 116/72 95 10/11/19 07:22 10/11/19 07:22 10/11/19 07:22 10/11/19 07:22 10/11/19 07:22 General appearance: Present: no acute distress Results - Labs CBC & Chem 7: 10/06/19 03:53 10/07/19 07:15 Labs: Laboratory Last Values WBC 9.5 K/mm3 (4.5-11.0) 10/06/19 03:53 RBC 3.95 M/mm3 (3.65-5.03) 10/06/19 03:53 Hgb 10.2 gm/dl (11.8-15.2) L 10/06/19 03:53 Hct 31.3 % (35.5-45.6) L 10/06/19 03:53 MCV 79 fl (84-94) L 10/06/19 03:53 MCH 26 pg (28-32) L 10/06/19 03:53 MCHC 33 % (32-34) 10/06/19 03:53 RDW 17.0 % (13.2-15.2) H 10/06/19 03:53 Plt Count 344 K/mm3 (140-440) 10/06/19 03:53 Sodium 135 mmol/L (137-145) L 10/07/19 07:15 Potassium 4.5 mmol/L (3.6-5.0) 10/07/19 07:15 Chloride 97.9 mmol/L (98-107) L 10/07/19 07:15 Carbon Dioxide 21 mmol/L (22-30) L 10/07/19 07:15 Anion Gap 21 mmol/L 10/07/19 07:15 BUN 27 mg/dL (9-20) H 10/07/19 07:15 Creatinine 1.1 mg/dL (0.8-1.5) 10/07/19 07:15 Estimated GFR > 60 ml/min 10/07/19 07:15 BUN/Creatinine Ratio 25 % 10/07/19 07:15 Glucose 154 mg/dL (75-100) H 10/07/19 07:15 POC Glucose 134 (70-105) H 10/11/19 06:15 Calcium 8.6 mg/dL (8.4-10.2) 10/07/19 07:15 C-Reactive Protein 6.80 mg/dL (0.00-1.30) H 10/10/19 11:51 Microbiology: Microbiology 10/06/19 Unknown Peripheral/Venous Blood Culture - Final NO GROWTH AFTER 5 DAYS 10/06/19 Unknown Peripheral/Venous Blood Culture - Final NO GROWTH AFTER 5 DAYS 10/09/19 Unknown Toe - Right Big Surgical Culture - Preliminary Cadena/IV: Voiding Method Urinal IV Catheter Type [Left Forearm INT / Saline Lock ] IV Catheter Type [Left Upper PICC Line arm] IV Catheter Type [Left Hand] INT / Saline Lock Active Medications - Current Medications Current Medications: Generic Name Dose Route Start Last Admin Trade Name Freq PRN Reason Stop Dose Admin Acetaminophen 650 mg 10/06/19 13:31 10/07/19 16:13 Tylenol PO 650 mg Q4H PRN Administration Pain MILD(1-3)/Fever >100.5/LAMBERT Acetaminophen/Hydrocodone Bitart 1 each 10/06/19 13:33 10/11/19 05:26 [place] 5/325 PO 1 each Q6HR PRN Administration PAIN Amlodipine Besylate 10 mg 10/07/19 10:00 10/11/19 09:28 Amlodipine PO 10 mg QDAY GABINO Administration Aspirin 81 mg 10/08/19 10:00 10/11/19 09:28 Halfprin Ec PO 81 mg QDAY GABINO Administration Clopidogrel Bisulfate 75 mg 10/08/19 10:00 10/11/19 09:28 Plavix PO 75 mg QDAY GABINO Administration Dextrose 50 ml 10/06/19 14:29 D50w (25gm) Syringe IV Q30MIN PRN Hypoglycemia Protocol Ferrous Sulfate 325 mg 10/07/19 10:00 10/11/19 09:28 Feosol PO 325 mg DAILY GABINO Administration Gabapentin 400 mg 10/06/19 14:00 10/11/19 05:20 Gabapentin PO 400 mg Q6HR GABINO Administration Sodium Chloride 500 mls @ 50 mls/hr 10/07/19 08:00 10/08/19 21:32 Nacl 0.9% 500 Ml IV Infused DIRECT GABINO Infusion Ertapenem 1 gm/ Sodium 50 mls @ 100 mls/hr 10/08/19 16:00 10/10/19 16:21 Chloride IV 100 mls/hr Q24H GABINO Administration Sodium Chloride 1,000 mls @ 75 mls/hr 10/09/19 11:30 10/11/19 05:20 Nacl 0.9% 1000 Ml IV 75 mls/hr DIRECT GABINO Administration Insulin Human Lispro 0 unit 10/06/19 18:00 10/11/19 09:25 Humalog SUB-Q Not Given Q6HR [facility] Protocol Ondansetron HCl 4 mg 10/06/19 13:31 Zofran IV Q8H PRN Nausea And Vomiting Sodium Chloride 10 ml 10/06/19 22:00 10/10/19 22:16 Sodium Chloride Flush Syringe 10 Ml IV 10 ml BID GABINO Administration Sodium Chloride 10 ml 10/06/19 13:31 Sodium Chloride Flush Syringe 10 Ml IV PRN PRN LINE FLUSH
[2019-10-11] MEDS ORDERED: MAGNESIUM HYDROXIDE (MOM) ORAL LIQD UDC PO PRN ×2 (14:35→15:07)
[2019-10-11] MEDS: ERTAPENEM 1 GM in SODIUM CHLORIDE 0.9% 50 ML IV SCH (16:58)
[2019-10-12] MEDS: GABAPENTIN 400 MG CAP PO SCH ×5 (06:30→23:26)
[2019-10-12] MEDS: ASPIRIN EC 81 MG TAB PO SCH ×2 (08:37→10:47)
[2019-10-12] MEDS: amLODIPine 10 MG TAB PO SCH ×2 (08:37→10:47)
[2019-10-12] MEDS: FERROUS SULFATE 325 MG TAB PO SCH ×2 (08:37→10:47)
[2019-10-12] MEDS: CLOPIDOGREL 75 MG TAB PO SCH (10:53)
[2019-10-12] MEDS: INSULIN LISPRO 100 UNIT/ML SUB-Q SCH ×4 (12:03→18:43)
--- NOTE | 2019-10-12 13:00 | Progress Note ---
Assessment and Plan Assessment and plan: Patient is a 54 yo Caucasion man with a history of Obesity, HTN, type 2 DM complicated by Peripheral Neuropathy and Left Great Toe Osteomyelitis s/p Amputation of Left Great Toe on 09/11/2019 who presents to [facility] ED due to worsening left foot ulcer. Patient was found to have left lower extremity swelling as well as diminished pulses to left lower extremity. Vascular surgery service consulted in ED. Patient underwent Angioplasty of left leg on 10/07/19. * MRI left leg with/without IMPRESSION: Surgical changes since 09/10/2019 exam as described. There is abnormal bone marrow signal and enhancement in the remaining first metatarsal, second metatarsal base and head, and possibly the third metatarsal head consistent with osteomyelitis. Cellulitis. Myositis. Soft tissue abscesses have resolved/been provided. No new soft tissue abscess. Left foot Osteomyelitis, ?acute on chronic: consulted ID, continue abx, await GS evaluation, Diabetic foot ulcer associated with diabetes mellitus with complication of Nonhealing left lower extremity diabetic wound/ulcer with PAD: s/p Angioplasty, treat with ASA and plavix Left foot cellulitis: consulted ID, treat with ABX Hypertension: Monitor blood pressure every shift, supportive care, continue medical management. Peripheral vascular disease related to nonhealing ulcer: treatment with Angioplasty Diabetes mellitus type 2: Sliding scale insulin, consistent carbohydrate diet, Accu-Chek, hypoglycemia protocol. DVT prophylaxis: SCD to bilateral lower extremities while in bed, patient is ambulatory. full code Disposition: continue inpatient care, 10/09/2019: Going for amputation of 2nd left toe and debridement today. ESBL growing so changing ABX 10/10/19: Pt seen and I spoke with him, PICC done, awaiting surgical culture to determine which Abx to go home with. Will need to get approval from [employer] because he is unInsured. We paid for last time he went home for IV abx but that was for only 9 days. its appears now he will need 6 week of IV abx. 10/11/19: 6 weeks of ertapenem 1 g every day stop date 11/20/2019, home abx setup 10/12/19: continue abx, hopeful home with abx in 1-2 days History Interval history: Patient was seen and examined. Follow-up on current diagnosis of left foot osteo. Overnight uneventful as no events directly reported to me. Patient denies any chest pain, shortness breath, nausea/vomiting or severe headaches. Imaging, nursing note, chart, labs and old chart reviewed. Discussed with patient. Hospitalist Physical - Physical exam Narrative exam: Gen: WDWN, NAD, Awake, Alert, Orientated HEENT: NCAT, EOMI, PERRL, OP Clear Neck: supple, no adenopathy, no thyromegaly, no JVD CVS/Heart: RRR, normal S1S2, pulses present bilaterally Chest/Lungs: CTA B, Symmetrical chest expansion, good air entry bilaterally GI/Abdomen: soft, NTND, good bowel sounds, no guarding or rebound /Bladder: no suprapubic tenderness, no CVA or paraspinal tenderness Extermity/Skin: bilateral foot ulcer, s/p left toe amputation MSK: FROM x 4 Neuro: CN 2-12 grossly intact, no new focal deficits Psych: calm - Constitutional Vitals: Temp Pulse Resp BP Pulse Ox 98 F 81 18 102/69 97 10/12/19 11:51 10/12/19 11:51 10/12/19 11:51 10/12/19 11:51 10/12/19 11:51 General appearance: Present: no acute distress Results - Labs CBC & Chem 7: 10/06/19 03:53 10/07/19 07:15 Labs: Laboratory Last Values WBC 9.5 K/mm3 (4.5-11.0) 10/06/19 03:53 RBC 3.95 M/mm3 (3.65-5.03) 10/06/19 03:53 Hgb 10.2 gm/dl (11.8-15.2) L 10/06/19 03:53 Hct 31.3 % (35.5-45.6) L 10/06/19 03:53 MCV 79 fl (84-94) L 10/06/19 03:53 MCH 26 pg (28-32) L 10/06/19 03:53 MCHC 33 % (32-34) 10/06/19 03:53 RDW 17.0 % (13.2-15.2) H 10/06/19 03:53 Plt Count 344 K/mm3 (140-440) 10/06/19 03:53 Sodium 135 mmol/L (137-145) L 10/07/19 07:15 Potassium 4.5 mmol/L (3.6-5.0) 10/07/19 07:15 Chloride 97.9 mmol/L (98-107) L 10/07/19 07:15 Carbon Dioxide 21 mmol/L (22-30) L 10/07/19 07:15 Anion Gap 21 mmol/L 10/07/19 07:15 BUN 27 mg/dL (9-20) H 10/07/19 07:15 Creatinine 1.1 mg/dL (0.8-1.5) 10/07/19 07:15 Estimated GFR > 60 ml/min 10/07/19 07:15 BUN/Creatinine Ratio 25 % 10/07/19 07:15 Glucose 154 mg/dL (75-100) H 10/07/19 07:15 POC Glucose 138 (70-105) H 10/12/19 11:50 Calcium 8.6 mg/dL (8.4-10.2) 10/07/19 07:15 C-Reactive Protein 6.80 mg/dL (0.00-1.30) H 10/10/19 11:51 Microbiology: Microbiology 10/09/19 Unknown Toe - Right Big Surgical Culture - Final 10/09/19 Unknown Toe - Right Big Anaerobic Culture - Preliminary 10/06/19 Unknown Peripheral/Venous Blood Culture - Final NO GROWTH AFTER 5 DAYS 10/06/19 Unknown Peripheral/Venous Blood Culture - Final NO GROWTH AFTER 5 DAYS Cadena/IV: Voiding Method Toilet IV Catheter Type [Left Forearm INT / Saline Lock ] IV Catheter Type [Left Upper PICC Line arm] IV Catheter Type [Left Hand] INT / Saline Lock Active Medications - Current Medications Current Medications: Generic Name Dose Route Start Last Admin Trade Name Freq PRN Reason Stop Dose Admin Acetaminophen 650 mg 10/06/19 13:31 10/07/19 16:13 Tylenol PO 650 mg Q4H PRN Administration Pain MILD(1-3)/Fever >100.5/LAMBERT Acetaminophen/Hydrocodone Bitart 1 each 10/06/19 13:33 10/11/19 11:48 [place] 5/325 PO 1 each Q6HR PRN Administration PAIN Amlodipine Besylate 10 mg 10/07/19 10:00 10/12/19 10:47 Amlodipine PO Not Given QDAY GABINO Aspirin 81 mg 10/08/19 10:00 10/12/19 10:47 Halfprin Ec PO Not Given QDAY GABINO Clopidogrel Bisulfate 75 mg 10/08/19 10:00 10/12/19 10:53 Plavix PO 75 mg QDAY GABINO Administration Dextrose 50 ml 10/06/19 14:29 D50w (25gm) Syringe IV Q30MIN PRN Hypoglycemia Protocol Ferrous Sulfate 325 mg 10/07/19 10:00 10/12/19 10:47 Feosol PO Not Given DAILY GABINO Gabapentin 400 mg 10/06/19 14:00 10/12/19 12:02 Gabapentin PO 400 mg Q6HR GABINO Administration Sodium Chloride 500 mls @ 50 mls/hr 10/07/19 08:00 10/08/19 21:32 Nacl 0.9% 500 Ml IV Infused DIRECT GABINO Infusion Ertapenem 1 gm/ Sodium 50 mls @ 100 mls/hr 10/08/19 16:00 10/11/19 16:58 Chloride IV 100 mls/hr Q24H GABINO Administration Sodium Chloride 1,000 mls @ 75 mls/hr 10/09/19 11:30 10/11/19 16:59 Nacl 0.9% 1000 Ml IV 75 mls/hr DIRECT GABINO Administration Insulin Human Lispro 0 unit 10/06/19 18:00 10/12/19 12:03 Humalog SUB-Q Not Given Q6HR [facility] Protocol Magnesium Hydroxide 17 ml 10/11/19 15:07 Milk Of Magnesia PO DAILY PRN Constipation Ondansetron HCl 4 mg 10/06/19 13:31 Zofran IV Q8H PRN Nausea And Vomiting Sodium Chloride 10 ml 10/06/19 22:00 10/12/19 10:48 Sodium Chloride Flush Syringe 10 Ml IV Not Given BID GABINO Sodium Chloride 10 ml 10/06/19 13:31 Sodium Chloride Flush Syringe 10 Ml IV PRN PRN LINE FLUSH
[2019-10-12] MEDS: ERTAPENEM 1 GM in SODIUM CHLORIDE 0.9% 50 ML IV SCH (17:13)
[2019-10-12] MEDS: SODIUM CHLORIDE 0.9% 1000 ML 1,000 ML IV SCH (17:21)
[2019-10-13] MEDS: INSULIN LISPRO 100 UNIT/ML SUB-Q SCH ×6 (00:45→22:57)
[2019-10-13] MEDS: GABAPENTIN 400 MG CAP PO SCH ×4 (06:00→22:59)
[2019-10-13] MEDS: FERROUS SULFATE 325 MG TAB PO SCH (11:01)
[2019-10-13] MEDS: ASPIRIN EC 81 MG TAB PO SCH (11:02)
[2019-10-13] MEDS: CLOPIDOGREL 75 MG TAB PO SCH (11:03)
[2019-10-13] MEDS: amLODIPine 10 MG TAB PO SCH (11:03)
--- NOTE | 2019-10-13 11:33 | Progress Note ---
Assessment and Plan Assessment and plan: Patient is a 54 yo Caucasion man with a history of Obesity, HTN, type 2 DM complicated by Peripheral Neuropathy and Left Great Toe Osteomyelitis s/p Amputation of Left Great Toe on 09/11/2019 who [facility] due to worsening left foot ulcer. Patient was found to have left lower extremity swelling as well as diminished pulses to left lower extremity. Vascular surgery service consulted in ED. Patient underwent Angioplasty of left leg on 10/07/19. * MRI left leg with/without IMPRESSION: Surgical changes since 09/10/2019 exam as described. There is abnormal bone marrow signal and enhancement in the remaining first metatarsal, second metatarsal base and head, and possibly the third metatarsal head consistent with osteomyelitis. Cellulitis. Myositis. Soft tissue abscesses have resolved/been provided. No new soft tissue abscess. Left foot Osteomyelitis, ?acute on chronic: consulted ID, continue abx, await GS evaluation, Diabetic foot ulcer associated with diabetes mellitus with complication of Nonhealing left lower extremity diabetic wound/ulcer with PAD: s/p Angioplasty, treat with ASA and plavix Left foot cellulitis: consulted ID, treat with ABX Hypertension: Monitor blood pressure every shift, supportive care, continue medical management. Peripheral vascular disease related to nonhealing ulcer: treatment with Angioplasty Diabetes mellitus type 2: Sliding scale insulin, consistent carbohydrate diet, Accu-Chek, hypoglycemia protocol. DVT prophylaxis: SCD to bilateral lower extremities while in bed, patient is ambulatory. full code Disposition: continue inpatient care, 10/09/2019: Going for amputation of 2nd left toe and debridement today. ESBL growing so changing ABX 10/10/19: Pt seen and I spoke with him, PICC done, awaiting surgical culture to determine which Abx to go home with. Will need to get approval from [employer] because he is unInsured. We paid for last time he went home for IV abx but that was for only 9 days. its appears now he will need 6 week of IV abx. 10/11/19: 6 weeks of ertapenem 1 g every day stop date 11/20/2019, home abx setup 10/12/19: continue abx, hopeful home with abx in 1-2 days 10/13/19: d/w Case management and [employer], awaiting their decision on home health/home IV set up History Interval history: Patient was seen and examined. Follow-up on current diagnosis of left foot osteo. Overnight uneventful as no events directly reported to me. Patient denies any chest pain, shortness breath, nausea/vomiting or severe headaches. Imaging, nursing note, chart, labs and old chart reviewed. Discussed with patient. Hospitalist Physical - Physical exam Narrative exam: Gen: WDWN, NAD, Awake, Alert, Orientated HEENT: NCAT, EOMI, PERRL, OP Clear Neck: supple, no adenopathy, no thyromegaly, no JVD CVS/Heart: RRR, normal S1S2, pulses present bilaterally Chest/Lungs: CTA B, Symmetrical chest expansion, good air entry bilaterally GI/Abdomen: soft, NTND, good bowel sounds, no guarding or rebound /Bladder: no suprapubic tenderness, no CVA or paraspinal tenderness Extermity/Skin: bilateral foot ulcer, s/p left toe amputation MSK: FROM x 4 Neuro: CN 2-12 grossly intact, no new focal deficits Psych: calm - Constitutional Vitals: Temp Pulse Resp BP Pulse Ox 98.1 F 69 20 123/73 95 10/13/19 07:08 10/13/19 07:07 10/13/19 07:08 10/13/19 07:07 10/13/19 07:07 General appearance: Present: no acute distress Results - Labs CBC & Chem 7: 10/06/19 03:53 10/07/19 07:15 Labs: Laboratory Last Values WBC 9.5 K/mm3 (4.5-11.0) 10/06/19 03:53 RBC 3.95 M/mm3 (3.65-5.03) 10/06/19 03:53 Hgb 10.2 gm/dl (11.8-15.2) L 10/06/19 03:53 Hct 31.3 % (35.5-45.6) L 10/06/19 03:53 MCV 79 fl (84-94) L 10/06/19 03:53 MCH 26 pg (28-32) L 10/06/19 03:53 MCHC 33 % (32-34) 10/06/19 03:53 RDW 17.0 % (13.2-15.2) H 10/06/19 03:53 Plt Count 344 K/mm3 (140-440) 10/06/19 03:53 Sodium 135 mmol/L (137-145) L 10/07/19 07:15 Potassium 4.5 mmol/L (3.6-5.0) 10/07/19 07:15 Chloride 97.9 mmol/L (98-107) L 10/07/19 07:15 Carbon Dioxide 21 mmol/L (22-30) L 10/07/19 07:15 Anion Gap 21 mmol/L 10/07/19 07:15 BUN 27 mg/dL (9-20) H 10/07/19 07:15 Creatinine 1.1 mg/dL (0.8-1.5) 10/07/19 07:15 Estimated GFR > 60 ml/min 10/07/19 07:15 BUN/Creatinine Ratio 25 % 10/07/19 07:15 Glucose 154 mg/dL (75-100) H 10/07/19 07:15 POC Glucose 114 (70-105) H 10/13/19 07:43 Calcium 8.6 mg/dL (8.4-10.2) 10/07/19 07:15 C-Reactive Protein 6.80 mg/dL (0.00-1.30) H 10/10/19 11:51 Microbiology: Microbiology 10/09/19 Unknown Toe - Right Big Surgical Culture - Final Cadena/IV: Voiding Method Urinal IV Catheter Type [Left Forearm INT / Saline Lock ] IV Catheter Type [Left Upper PICC Line arm] IV Catheter Type [Left Hand] INT / Saline Lock Active Medications - Current Medications Current Medications: Generic Name Dose Route Start Last Admin Trade Name Freq PRN Reason Stop Dose Admin Acetaminophen 650 mg 10/06/19 13:31 10/07/19 16:13 Tylenol PO 650 mg Q4H PRN Administration Pain MILD(1-3)/Fever >100.5/LAMBERT Acetaminophen/Hydrocodone Bitart 1 each 10/06/19 13:33 10/11/19 11:48 [place] 5/325 PO 1 each Q6HR PRN Administration PAIN Amlodipine Besylate 10 mg 10/07/19 10:00 10/12/19 10:47 Amlodipine PO Not Given QDAY [facility] Aspirin 81 mg 10/08/19 10:00 10/12/19 10:47 Halfprin Ec PO Not Given QDAY [facility] Clopidogrel Bisulfate 75 mg 10/08/19 10:00 10/12/19 10:53 Plavix PO 75 mg QDAY GABINO Administration Dextrose 50 ml 10/06/19 14:29 D50w (25gm) Syringe IV Q30MIN PRN Hypoglycemia Protocol Ferrous Sulfate 325 mg 10/07/19 10:00 10/12/19 10:47 Feosol PO Not Given DAILY GABINO Gabapentin 400 mg 10/06/19 14:00 10/13/19 06:00 Gabapentin PO 400 mg Q6HR GABINO Administration Sodium Chloride 500 mls @ 50 mls/hr 10/07/19 08:00 10/08/19 21:32 Nacl 0.9% 500 Ml IV Infused DIRECT GABINO Infusion Ertapenem 1 gm/ Sodium 50 mls @ 100 mls/hr 10/08/19 16:00 10/12/19 17:13 Chloride IV 100 mls/hr Q24H GABINO Administration Sodium Chloride 1,000 mls @ 75 mls/hr 10/09/19 11:30 10/12/19 17:21 Nacl 0.9% 1000 Ml IV 75 mls/hr DIRECT GABINO Administration Insulin Human Lispro 0 unit 10/13/19 07:30 Humalog SUB-Q ACHS GABINO Protocol Magnesium Hydroxide 17 ml 10/11/19 15:07 Milk Of Magnesia PO DAILY PRN Constipation Ondansetron HCl 4 mg 10/06/19 13:31 Zofran IV Q8H PRN Nausea And Vomiting Sodium Chloride 10 ml 10/06/19 22:00 10/12/19 22:38 Sodium Chloride Flush Syringe 10 Ml IV 10 ml BID GABINO Administration Sodium Chloride 10 ml 10/06/19 13:31 Sodium Chloride Flush Syringe 10 Ml IV PRN PRN LINE FLUSH
[2019-10-13] MEDS: SODIUM CHLORIDE 0.9% 1000 ML 1,000 ML IV SCH (12:06)
[2019-10-13] MEDS: ERTAPENEM 1 GM in SODIUM CHLORIDE 0.9% 50 ML IV SCH (17:27)
[2019-10-14] MEDS: GABAPENTIN 400 MG CAP PO SCH ×4 (05:37→22:04)
[2019-10-14] MEDS: CLOPIDOGREL 75 MG TAB PO SCH ×2 (08:06→10:00)
[2019-10-14] MEDS: ASPIRIN EC 81 MG TAB PO SCH ×2 (08:06→10:00)
[2019-10-14] MEDS: FERROUS SULFATE 325 MG TAB PO SCH ×2 (08:06→10:00)
[2019-10-14] MEDS: amLODIPine 10 MG TAB PO SCH ×2 (08:06→10:00)
[2019-10-14] MEDS: INSULIN LISPRO 100 UNIT/ML SUB-Q SCH ×4 (08:07→22:07)
[2019-10-14] MEDS: SODIUM CHLORIDE 0.9% 1000 ML 1,000 ML IV SCH ×2 (08:08→22:04)
--- NOTE | 2019-10-14 13:29 | Progress Note ---
Assessment and Plan Left foot Osteomyelitis, acute on chronic: consulted ID, continue abx, s/p 2nd left toe and debridement Diabetic foot ulcer associated with PAD: s/p Angioplasty, treat with ASA and plavix Left foot cellulitis: consulted ID, treat with ABX Hypertension: Monitor blood pressure every shift, supportive care, continue medical management. Peripheral vascular disease related to nonhealing ulcer: treatment with Angiopl asty Diabetes mellitus type 2: Sliding scale insulin, consistent carbohydrate diet, Accu-Chek, hypoglycemia protocol. DVT prophylaxis: SCD to bilateral lower extremities while in bed, patient is ambulatory. full code Disposition: continue inpatient care, 10/09/2019: Going for amputation of 2nd left toe and debridement today. ESBL growing so changing ABX 10/10/19: Pt seen and I spoke with him, PICC done, awaiting surgical culture to determine which Abx to go home with. Will need to get approval from [facility] [facility] because he is unInsured. We paid for last time he went home for IV abx but that was for only 9 days. its appears now he will need 6 week of IV abx. 10/11/19: 6 weeks of ertapenem 1 g every day stop date 11/20/2019, home abx setup 10/12/19: continue abx, hopeful home with abx in 1-2 days 10/13/19: d/w Case management and [facility], awaiting their decision on home health/home IV set up 10/14/19: d/w Case management and [facility], awaiting their decision on home health/home IV set up Brief History Patient is a 54 yo Caucasion man with a history of Obesity, HTN, type 2 DM complicated by Peripheral Neuropathy and Left Great Toe Osteomyelitis s/p Amputation of Left Great Toe on 09/11/2019 who presents to [facility] ED due to worsening left foot ulcer. Patient was found to have left lower extremity swelling as well as diminished pulses to left lower extremity. Vascular surgery service consulted in ED. Patient underwent Angioplasty of left leg on 10/07/19. * MRI left leg with/without IMPRESSION: Surgical changes since 09/10/2019 exam as described. There is abnormal bone marrow signal and enhancement in the remaining first metatarsal, second metatarsal base and head, and possibly the third metatarsal head consistent with osteomyelitis. Cellulitis. Myositis. Soft tissue abscesses have resolved/been provided. No new soft tissue abscess. Hospitalist Physical GENERAL: well-developed and well-nourished male lying on bed appeared to be in no discomfort. HEENT: Normocephalic. Atraumatic. No conjunctival congestion or icterus. Patient has moist mucous membranes. NECK: Supple. Trachea midline. CHEST/LUNGS: Clear to auscultated bilaterally, breathing nonlabored. No wheezes crackles or rhonchi. HEART/CARDIOVASCULAR: Regular in rate and rhythm. S1 and S2 positive. ABDOMEN: Abdomen is soft, nontender. Patient has normal bowel sounds. SKIN: There is no rash. Warm and dry. NEURO: No focal motor deficit. Follows command. MUSCULOSKELETAL: No joint effusion or tenderness. EXTRIMITY: bilateral foot ulcer, s/p left toe amputation PSYCH: Cooperative. Subjective Date of service: 10/14/19 Interval history: Patient seen and examined. Medical records and medication list reviewed. No acute event overnight noted by the RN. Patient denies any chest pain or difficulty breathing. Patient is tolerating diet. Discussed plan of care at bedside with patient. Objective - Constitutional Vitals: Vital Signs - 12hr 10/14/19 10/14/19 10/14/19 04:50 07:38 08:06 Temperature 98.3 F 97.7 F Pulse Rate 70 70 Respiratory 20 18 Rate Blood Pressure 116/73 117/70 117/70 O2 Sat by Pulse 97 Oximetry 10/14/19 12:09 Temperature 97.5 F L Pulse Rate 71 Respiratory 18 Rate Blood Pressure 107/65 O2 Sat by Pulse 100 Oximetry - Labs CBC & Chem 7: 10/06/19 03:53 10/07/19 07:15 Labs: Abnormal lab results 10/13/19 10/13/19 10/14/19 Range/Units 16:23 22:20 07:55 POC Glucose 186 H 127 H 131 H (70-105) 10/14/19 Range/Units 12:24 POC Glucose 158 H (70-105)
[2019-10-14] MEDS: ERTAPENEM 1 GM in SODIUM CHLORIDE 0.9% 50 ML IV SCH (17:03)
[2019-10-15] MEDS: GABAPENTIN 400 MG CAP PO SCH ×4 (01:41→18:33)
[2019-10-15] MEDS: INSULIN LISPRO 100 UNIT/ML SUB-Q SCH ×4 (08:15→21:30)
[2019-10-15] MEDS: CLOPIDOGREL 75 MG TAB PO SCH (09:34)
[2019-10-15] MEDS: ASPIRIN EC 81 MG TAB PO SCH (09:34)
[2019-10-15] MEDS: amLODIPine 10 MG TAB PO SCH (09:34)
[2019-10-15] MEDS: FERROUS SULFATE 325 MG TAB PO SCH (09:34)
--- NOTE | 2019-10-15 14:42 | Progress Note ---
Assessment and Plan Left foot Osteomyelitis, acute on chronic: consulted ID, continue abx, s/p 2nd left toe and debridement Diabetic foot ulcer associated with PAD: s/p Angioplasty, treat with ASA and plavix Left foot cellulitis: consulted ID, treat with ABX Hypertension: Monitor blood pressure every shift, supportive care, continue medical management. Peripheral vascular disease related to nonhealing ulcer: treatment with Angiopl asty Diabetes mellitus type 2: Sliding scale insulin, consistent carbohydrate diet, Accu-Chek, hypoglycemia protocol. DVT prophylaxis: SCD to bilateral lower extremities while in bed, patient is ambulatory. full code Disposition: continue inpatient care, 10/09/2019: Going for amputation of 2nd left toe and debridement today. ESBL growing so changing ABX 10/10/19: Pt seen and I spoke with him, PICC done, awaiting surgical culture to determine which Abx to go home with. Will need to get approval from [employer] because he is unInsured. We paid for last time he went home for IV abx but that was for only 9 days. its appears now he will need 6 week of IV abx. 10/11/19: 6 weeks of ertapenem 1 g every day stop date 11/20/2019, home abx setup 10/12/19: continue abx, hopeful home with abx in 1-2 days 10/13/19: d/w Case management and MOVE COORDINATOR, awaiting their decision on home health/home IV set up 10/14/19: d/w Case management and MOVE COORDINATOR, awaiting their decision on home health/home IV set up 10/15/19 d/w Case management and MOVE COORDINATOR, awaiting their decision on home health/home IV set up. Wound VAC is already delivered to his room. Brief History Patient is a 54 yo Caucasion man with a history of Obesity, HTN, type 2 DM complicated by Peripheral Neuropathy and Left Great Toe Osteomyelitis s/p Amputation of Left Great Toe on 09/11/2019 who presents to [facility] ED due to worsening left foot ulcer. Patient was found to have left lower extremity swelling as well as diminished pulses to left lower extremity. Vascular surgery service consulted in ED. Patient underwent Angioplasty of left leg on 10/07/19. * MRI left leg with/without IMPRESSION: Surgical changes since 09/10/2019 exam as described. There is abnormal bone marrow signal and enhancement in the remaining first metatarsal, second metatarsal base and head, and possibly the third metatarsal head consistent with osteomyelitis. Cellulitis. Myositis. So ft tissue abscesses have resolved/been provided. No new soft tissue abscess. Hospitalist Physical GENERAL: well-developed and well-nourished male lying on bed appeared to be in no discomfort. HEENT: Normocephalic. Atraumatic. No conjunctival congestion or icterus. Pat ient has moist mucous membranes. NECK: Supple. Trachea midline. CHEST/LUNGS: Clear to auscultated bilaterally, breathing nonlabored. No wheezes crackles or rhonchi. HEART/CARDIOVASCULAR: Regular in rate and rhythm. S1 and S2 positive. ABDOMEN: Abdomen is soft, nontender. Patient has normal bowel sounds. SKIN: There is no rash. Warm and dry. NEURO: No focal motor deficit. Follows command. MUSCULOSKELETAL: No joint effusion or tenderness. EXTRIMITY: bilateral foot ulcer, s/p left toe amputation PSYCH: Cooperative. Subjective Date of service: 10/15/19 Interval history: Patient seen and examined. Medical records and medication list reviewed. No acute event overnight noted by the RN. Patient denies any chest pain or difficulty breathing. Patient is tolerating diet. Discussed plan of care at bedside with patient. Objective - Constitutional Vitals: Vital Signs - 12hr 10/15/19 10/15/19 10/15/19 04:39 07:56 09:34 Temperature 98.5 F 98.9 F Pulse Rate 70 69 69 Respiratory 20 18 Rate Blood Pressure 114/65 115/74 115/74 O2 Sat by Pulse 96 96 Oximetry 10/15/19 11:50 Temperature 98.6 F Pulse Rate 85 Respiratory 18 Rate Blood Pressure 126/70 O2 Sat by Pulse 97 Oximetry - Labs CBC & Chem 7: 10/06/19 03:53 10/07/19 07:15 Labs: Abnormal lab results 10/14/19 10/14/19 10/15/19 Range/Units 16:28 21:06 08:08 POC Glucose 200 H 172 H 114 H (70-105) 10/15/19 Range/Units 12:02 POC Glucose 218 H (70-105)
[2019-10-15 14:46] LABS: Hematocrit 33.8 % (35.5-45.6); Mean Corpuscular HGB Conc 33 % (32-34); Mean Corpuscular Volume 80 fl (84-94); Platelet Count 569 K/mm3 (140-440); Red Blood Count 4.25 M/mm3 (3.65-5.03); Red Cell Distribution Width 16.4 % (13.2-15.2)
[2019-10-15 14:59] LABS: BUN/Creatinine Ratio 18; Blood Urea Nitrogen 21 mg/dL (9-20); Calcium 9.1 mg/dL (8.4-10.2); Hemolysis Index 14
[2019-10-15] MEDS: ERTAPENEM 1 GM in SODIUM CHLORIDE 0.9% 50 ML IV SCH (16:17)
[2019-10-15] MEDS: SODIUM CHLORIDE 0.9% 1000 ML 1,000 ML IV SCH (16:46)
[2019-10-16] MEDS: GABAPENTIN 400 MG CAP PO SCH ×5 (00:13→23:54)
[2019-10-16] MEDS: INSULIN LISPRO 100 UNIT/ML SUB-Q SCH ×4 (08:38→21:49)
[2019-10-16] MEDS: amLODIPine 10 MG TAB PO SCH (09:22)
[2019-10-16] MEDS: ASPIRIN EC 81 MG TAB PO SCH (09:22)
[2019-10-16] MEDS: FERROUS SULFATE 325 MG TAB PO SCH (09:22)
[2019-10-16] MEDS: CLOPIDOGREL 75 MG TAB PO SCH (09:22)
[2019-10-16] MEDS: ACETAMINOPHEN 325 MG TAB PO PRN (09:25)
--- NOTE | 2019-10-16 12:59 | Progress Note ---
Assessment and Plan Left foot Osteomyelitis, acute on chronic: consulted ID, continue abx, s/p 2nd left toe and debridement - 6 weeks of ertapenem 1 g every day stop date 11/20/2019, home abx setup Diabetic foot ulcer associated with PAD: s/p Angioplasty, treat with ASA and plavix Left foot cellulitis: consulted ID, treat with ABX Hypertension: Monitor blood pressure every shift, supportive care, continue medical management. Peripheral vascular disease related to nonhealing ulcer: treatment with Angioplasty Diabetes mellitus type 2: Sliding scale insulin, consistent carbohydrate diet, Accu-Chek, hypoglycemia protocol. DVT prophylaxis: SCD to bilateral lower extremities while in bed, patient is ambulatory. full code Disposition: continue inpatient care, 10/09/2019: Going for amputation of 2nd left toe and debridement today. ESBL growing so changing ABX 10/10/19: Pt seen and I spoke with him, PICC done, awaiting surgical culture to determine which Abx to go home with. Will need to get approval from [employer] because he is unInsured. We paid for last time he went home for IV abx but that was for only 9 days. its appears now he will need 6 week of IV abx. 10/11/19: 6 weeks of ertapenem 1 g every day stop date 11/20/2019, home abx setup 10/12/19: continue abx, hopeful home with abx in 1-2 days 10/13/19: d/w Case management and PET CAREGIVER, awaiting their decision on home health/home IV set up 10/14/19: d/w Case management and PET CAREGIVER, awaiting their decision on home health/home IV set up 10/15/19 d/w Case management and PET CAREGIVER, awaiting their decision on home hea lth/home IV set up. Wound VAC is already delivered to his room. 10/16/19 discharge pending on IV home antibiotics set up Brief History Patient is a 54 yo Caucasion man with a history of Obesity, HTN, type 2 DM complicated by Peripheral Neuropathy and Left Great Toe Osteomyelitis s/p Amputation of Left Great Toe on 09/11/2019 who presents to [facility] ED due to worsening left foot ulcer. Patient was found to have left lower extremity swelling as well as diminished pulses to left lower extremity. Vascular surgery service consulted in ED. Patient underwent Angioplasty of left leg on 10/07/19. * MRI left leg with/without IMPRESSION: Surgical changes since 09/10/2019 exam as described. There is abnormal bone marrow signal and enhancement in the remaining first metatarsal, second metatarsal base and head, and possibly the third metatarsal head consistent with osteomyelitis. Cellulitis. Myositis. Soft tissue abscesses have resolved/been provided. No new soft tissue abscess. Hospitalist Physical GENERAL: well-developed and well-nourished male lying on bed appeared to be in no discomfort. HEENT: Normocephalic. Atraumatic. No conjunctival congestion or icterus. Patient has moist mucous membranes. NECK: Supple. Trachea midline. CHEST/LUNGS: Clear to auscultated bilaterally, breathing nonlabored. No wheezes crackles or rhonchi. HEART/CARDIOVASCULAR: Regular in rate and rhythm. S1 and S2 positive. ABDOMEN: Abdomen is soft, nontender. Patient has normal bowel sounds. SKIN: There is no rash. Warm and dry. NEURO: No focal motor deficit. Follows command. MUSCULOSKELETAL: No joint effusion or tenderness. EXTRIMITY: bilateral foot ulcer, s/p left toe amputation PSYCH: Cooperative. Subjective Date of service: 10/16/19 Interval history: Patient seen and examined. Medical records and medication list reviewed. No acute event overnight noted by the RN. Patient denies any chest pain or difficulty breathing. Patient is tolerating diet. Discussed plan of care at bedside with patient. Objective - Constitutional Vitals: Vital Signs - 12hr 10/16/19 10/16/19 10/16/19 04:49 05:05 07:13 Temperature 98.2 F 98.6 F 98.3 F Pulse Rate 73 74 69 Respiratory 17 18 20 Rate Blood Pressure 123/74 114/67 Blood Pressure 123/74 [Right] O2 Sat by Pulse 97 97 96 Oximetry 10/16/19 11:15 Temperature 97.0 F L Pulse Rate 74 Respiratory 16 Rate Blood Pressure 114/64 Blood Pressure [Right] O2 Sat by Pulse 97 Oximetry - Labs CBC & Chem 7: 10/15/19 13:38 10/15/19 13:38 Labs: Abnormal lab results 10/15/19 10/15/19 10/15/19 Range/Units 13:38 13:38 16:48 Hgb 11.0 L (11.8-15.2) gm/dl Hct 33.8 L (35.5-45.6) % MCV 80 L (84-94) fl MCH 26 L (28-32) pg RDW 16.4 H (13.2-15.2) % Plt Count 569 H (140-440) K/mm3 Sodium 136 L (137-145) mmol/L Chloride 96.7 L (98-107) mmol/L Carbon Dioxide 21 L (22-30) mmol/L BUN 21 H (9-20) mg/dL Glucose 199 H (75-100) mg/dL POC Glucose 169 H (70-105) 10/15/19 10/16/19 10/16/19 Range/Units 21:37 07:40 11:28 Hgb (11.8-15.2) gm/dl Hct (35.5-45.6) % MCV (84-94) fl MCH (28-32) pg RDW (13.2-15.2) % Plt Count (140-440) K/mm3 Sodium (137-145) mmol/L Chloride (98-107) mmol/L Carbon Dioxide (22-30) mmol/L BUN (9-20) mg/dL Glucose (75-100) mg/dL POC Glucose 152 H 115 H 171 H (70-105)
[2019-10-16] MEDS: ERTAPENEM 1 GM in SODIUM CHLORIDE 0.9% 50 ML IV SCH (17:31)
[2019-10-17] MEDS: GABAPENTIN 400 MG CAP PO SCH ×2 (06:48→11:25)
[2019-10-17] MEDS: INSULIN LISPRO 100 UNIT/ML SUB-Q SCH ×2 (07:20→12:22)
[2019-10-17] MEDS: amLODIPine 10 MG TAB PO SCH (11:16)
[2019-10-17] MEDS: ASPIRIN EC 81 MG TAB PO SCH (11:17)
[2019-10-17] MEDS: CLOPIDOGREL 75 MG TAB PO SCH (11:18)
[2019-10-17] MEDS: FERROUS SULFATE 325 MG TAB PO SCH (11:35)
--- NOTE | 2019-10-17 12:24 | Progress Note ---
Assessment and Plan Left foot Osteomyelitis, acute on chronic: consulted ID, continue abx, s/p 2nd left toe and debridement - 6 weeks of ertapenem 1 g every day stop date 11/20/2019, home abx setup Diabetic foot ulcer associated with PAD: s/p Angioplasty, treat with ASA and plavix Left foot cellulitis: consulted ID, treat with ABX Hypertension: Monitor blood pressure every shift, supportive care, continue medical management. Peripheral vascular disease related to nonhealing ulcer: treatment with Angioplasty Diabetes mellitus type 2: Sliding scale insulin, consistent carbohydrate diet, Accu-Chek, hypoglycemia protocol. DVT prophylaxis: SCD to bilateral lower extremities while in bed, patient is ambulatory. full code Disposition: continue inpatient care, 10/09/2019: Going for amputation of 2nd left toe and debridement today. ESBL growing so changing ABX 10/10/19: Pt seen and I spoke with him, PICC done, awaiting surgical culture to determine which Abx to go home with. Will need to get approval from P[employer] UP [employer] DELIVERY DRIVER because he is unInsured. We paid for last time he went home for IV abx but that was for only 9 days. its appears now he will need 6 week of IV abx. 10/11/19: 6 weeks of ertapenem 1 g every day stop date 11/20/2019, home abx setup 10/12/19: continue abx, hopeful home with abx in 1-2 days 10/13/19: d/w Case management and PICK UP AND DELIVERY DRIVER, awaiting their decision on home health/home IV set up 10/14/19: d/w Case management and PICK UP AND DELIVERY DRIVER, awaiting their decision on home health/home IV set up 10/15/19 d/w Case management and PICK UP AND DELIVERY DRIVER, awaiting their decision on home hea lth/home IV set up. Wound VAC is already delivered to his room. 10/16/19 discharge pending on IV home antibiotics set up 10/17/19 discharge pending on IV home antibiotics set up. Patient is uninsured. Brief History Patient is a 54 yo Caucasion man with a history of Obesity, HTN, type 2 DM complicated by Peripheral Neuropathy and Left Great Toe Osteomyelitis s/p Amput ation of Left Great Toe on 09/11/2019 who presents to [facility] ED due to worsening left foot ulcer. Patient was found to have left lower extremity swelling as well as diminished pulses to left lower extremity. Vascular surgery service consulted in ED. Patient underwent Angioplasty of left leg on 10/07/19. * MRI left leg with/without IMPRESSION: Surgical changes since 09/10/2019 exam as described. There is abnormal bone marrow signal and enhancement in the remaining first metatarsal, second metatarsal base and head, and possibly the third metatarsal head consistent with osteomyelitis. Cellulitis. Myositis. Soft tissue abscesses have resolved/been provided. No new soft tissue abscess. Hospitalist Physical GENERAL: well-developed and well-nourished male lying on bed appeared to be in no discomfort. HEENT: Normocephalic. Atraumatic. No conjunctival congestion or icterus. Patient has moist mucous membranes. NECK: Supple. Trachea midline. CHEST/LUNGS: Clear to auscultated bilaterally, breathing nonlabored. No wheezes crackles or rhonchi. HEART/CARDIOVASCULAR: Regular in rate and rhythm. S1 and S2 positive. ABDOMEN: Abdomen is soft, nontender. Patient has normal bowel sounds. SKIN: There is no rash. Warm and dry. NEURO: No focal motor deficit. Follows command. MUSCULOSKELETAL: No joint effusion or tenderness. EXTRIMITY: bilateral foot ulcer, s/p left toe amputation PSYCH: Cooperative. Subjective Date of service: 10/17/19 Interval history: Patient seen and examined. Medical records and medication list reviewed. No acute event overnight noted by the RN. Patient denies any chest pain or difficulty breathing. Patient is tolerating diet. Discussed plan of care at bedside with patient. Objective - Constitutional Vitals: Vital Signs - 12hr 10/17/19 10/17/19 04:29 07:51 Temperature 97.9 F 99.0 F Pulse Rate 75 79 Respiratory 17 18 Rate Blood Pressure 98/58 Blood Pressure 124/79 [Right] O2 Sat by Pulse 98 96 Oximetry - Labs CBC & Chem 7: 10/15/19 13:38 10/15/19 13:38 Labs: Abnormal lab results 10/16/19 10/16/19 10/17/19 Range/Units 16:18 21:32 08:04 POC Glucose 170 H 203 H 119 H (70-105)
--- NOTE | 2019-10-17 14:35 | Discharge Summary ---
Providers - Providers Date of Admission: 10/08/19 09:30 Date of discharge: 10/17/19 Attending physician: ALYSON SERRA 10/06/19 11:19 Consult to Physician [CONS] Urgent Comment: Consulting Provider: DEION ELIZABETH Physician Instructions: Reason For Exam: Diabetic foot infection 10/06/19 13:27 Consult to Physician [CONS] Routine Comment: Consulting Provider: HAO DAY Physician Instructions: Reason For Exam: Diabetic foot 10/07/19 08:00 Consult to Physician [CONS] Routine Comment: Consulting Provider: JACOBO ROBLES Physician Instructions: Reason For Exam: diabetic wound infection 10/07/19 11:50 Consult to Wound/ET Nurse [CONS] Stat Reason For Exam: wound eval 10/07/19 11:51 Consult to Case Management [CONS] Routine Services Needed at Discharge: Psychological Operations Notified:: cm notified Comment:: Patient needs options for insurance DIAZ. Thanks 10/08/19 10:47 Consult to Physician [CONS] Routine Comment: Consulting Provider: JACOBO ROBLES Physician Instructions: I notifed Reason For Exam: left foot osteomyelitis 10/09/19 15:10 Consult to PICC Line RN [CONS] Routine Reason For Exam: terminal gauger antibiotics Type Line:: PICC 10/10/19 16:14 Consult to Case Management [CONS] Routine Services Needed at Discharge: Home Health Services Notified:: YES Additional Physician Instructions: Daylin Robles MD [facility] infectious disease consultants ([facility]) M: [phone] O: [phone] F: [phone] Outpatient parenteral antibiotic therapy orders Diagnosis: osteomyelitis L foot Antibiotic administration: ertapenem 1g q24h until 11/20/2019 Line: PICC Lab monitoring: CBC with differential, BUN, creatinine, LFTs, CRP once per week preferably on Sunday or Sunday For critical labs, call office: [phone] Daylin Robles Hospitalization Condition: Fair Pertinent studies: LE MRI LE doppler LE angiogram Hospital course: Patient is a 54 yo Caucasion man with a history of Obesity, HTN, type 2 DM complicated by Peripheral Neuropathy and Left Great Toe Osteomyelitis s/p Amputation of Left Great Toe on 09/11/2019 who presents to [facility] ED due to worsening left foot ulcer. Patient was found to have left lower extremity swelling as well as diminished pulses to left lower extremity. Vascular surgery service consulted in ED. Patient underwent Angioplasty of left leg on 10/07/19 followed by2nd left toe and debridement. 10/09/2019: Going for amputation of 2nd left toe and debridement today. ESBL growing so changing ABX 10/10/19: Pt seen and I spoke with him, PICC done, awaiting surgical culture to determine which Abx to go home with. Will need to get approval from [employer] because he is unInsured. We paid for last time he went home for IV abx but that was for only 9 days. its appears now he will need 6 week of IV abx. 10/11/19: 6 weeks of ertapenem 1 g every day stop date 11/20/2019, home abx setup 10/12/19: continue abx, hopeful home with abx in 1-2 days 10/13/19: d/w Case management and [employer], awaiting their decision on home health/home IV set up 10/14/19: d/w Case management and [employer], awaiting their decision on home health/home IV set up 10/15/19 d/w Case management and [employer], awaiting their decision on home health/home IV set up. Wound VAC is already delivered to his room. 10/16/19 discharge pending on IV home antibiotics set up 10/17/19 d/c home with IV home antibiotics set up and outpt f/u Radiological data: * MRI left leg with/without IMPRESSION: Surgical changes since 09/10/2019 exam as described. There is abnormal bone marrow signal and enhancement in the remaining first metatarsal, second metatarsal base and head, and possibly the third metatarsal head consistent with osteomyelitis. Cellulitis. Myositis. Soft tissue abscesses have resolved/been provided. No new soft tissue abscess. Discharge diagnosis: Left foot Osteomyelitis, acute on chronic: consulted ID, continue abx, s/p 2nd left toe and debridement - 6 weeks of ertapenem 1 g every day stop date 11/20/2019, d/c with home abx setup Diabetic foot ulcer associated with PAD: s/p Angioplasty, treat with ASA and plavix Left foot cellulitis: consulted ID, treated with ABX Hypertension: Monitored blood pressure every shift, supportive care, continue medical management. Peripheral vascular disease related to nonhealing ulcer: s/p Angioplasty Diabetes mellitus type 2: Managed with Sliding scale insulin, consistent carbohydrate diet, Accu-Chek, hypoglycemia protocol. DVT prophylaxis: SCD to bilateral lower extremities while in bed, patient is ambulatory. full code Disposition: home with iv abx and outpt f/u Hospitalist Physical GENERAL: well-developed and well-nourished male lying on bed appeared to be in no discomfort. HEENT: Normocephalic. Atraumatic. No conjunctival congestion or icterus. Patient has moist mucous membranes. NECK: Supple. Trachea midline. CHEST/LUNGS: Clear to auscultated bilaterally, breathing nonlabored. No wheezes crackles or rhonchi. HEART/CARDIOVASCULAR: Regular in rate and rhythm. S1 and S2 positive. ABDOMEN: Abdomen is soft, nontender. Patient has normal bowel sounds. SKIN: There is no rash. Warm and dry. NEURO: No focal motor deficit. Follows command. MUSCULOSKELETAL: No joint effusion or tenderness. EXTRIMITY: bilateral foot ulcer, s/p left toe amputation PSYCH: Cooperative. Disposition: [id number]/TX-06 HOME UNDER HOME HL Time spent for discharge: 34 minutes Core Measure Documentation - Palliative Care Palliative Care/ Comfort Measures: Not Applicable - Core Measures Any of the following diagnoses?: none, history only Exam - Constitutional Vitals: Temp Pulse Resp BP Pulse Ox 98.3 F 75 18 122/72 99 10/17/19 12:00 10/17/19 12:00 10/17/19 12:00 10/17/19 12:00 10/17/19 12:00 Plan Activity: advance as tolerated Weight Bearing Status: Non-Weight Bearing Diet: low fat, low salt, diabetic Wound: per wound nurse instructions Special Instructions: record blood sugar diary Additional Instructions: f/u at wound care clinic Follow up with: LUCIA MEADOWS [Other] - 3-5 Days Prescriptions: amLODIPine 10 mg PO QDAY #30 Ferrous Sulfate [Ferrous Sulfate 324 MG] 324 mg PO DAILY #60 Gabapentin 400 mg PO Q8H #90 cap glipiZIDE [Glucotrol] 10 mg PO BID #60 Aspirin EC [Halfprin EC] 81 mg PO QDAY #30 tablet. HYDROcodone/APAP 5-325 [[place] 5-325 mg TAB] 1 each PO Q6HR PRN #30 tablet PRN Reason: Pain, Moderate (4-6) Clopidogrel [Plavix] 75 mg PO QDAY #30 tablet
[2019-10-17 16:34] VITALS: BP 121/63
== END 2019-10-17 20:00 | disposition home health service (06) | DRG 271 ==
LOC: ED 03:06 → 3A 13:31 → 3B-SURG 15:05 → OBSVTOIN 10-08 09:30
PROVIDERS: ADMIT Internal Medicine; ATTEND Internal Medicine
PROC: 04CQ3ZZ Extirpation of Matter from Left Anterior Tibial Artery, Percutaneous Approach (ICD-10-PCS; principal; 2019-10-07)
PROC: 047Q3ZZ Dilation of Left Anterior Tibial Artery, Percutaneous Approach (ICD-10-PCS; 2019-10-07)
PROC: 047L3Z1 Dilation of Left Femoral Artery using Drug-Coated Balloon, Percutaneous Approach (ICD-10-PCS; 2019-10-07)
PROC: B41F1ZZ Fluoroscopy of Right Lower Extremity Arteries using Low Osmolar Contrast (ICD-10-PCS; 2019-10-07)
PROC: B44LZZZ Ultrasonography of Femoral Artery (ICD-10-PCS; 2019-10-07)
PROC: B4101ZZ Fluoroscopy of Abdominal Aorta using Low Osmolar Contrast (ICD-10-PCS; 2019-10-07)
PROC: B41G1ZZ Fluoroscopy of Left Lower Extremity Arteries using Low Osmolar Contrast (ICD-10-PCS; 2019-10-07)
PROC: 0JBR0ZZ Excision of Left Foot Subcutaneous Tissue and Fascia, Open Approach (ICD-10-PCS; 2019-10-08)
PROC: 0Y6N0Z5 Detachment at Left Foot, Complete 2nd Ray, Open Approach (ICD-10-PCS; 2019-10-09)
PROC: 0H9MXZX Drainage of Right Foot Skin, External Approach, Diagnostic (ICD-10-PCS; 2019-10-09)
PROC: 0Y9M0ZZ Drainage of Right Foot, Open Approach (ICD-10-PCS; 2019-10-09)
PROC: 02HV33Z Insertion of Infusion Device into Superior Vena Cava, Percutaneous Approach (ICD-10-PCS; 2019-10-10)
DX: E11.51 Type 2 diabetes mellitus with diabetic peripheral angiopathy without gangrene (principal); M86.8X7 Other osteomyelitis, ankle and foot; L03.116 Cellulitis of left lower limb; L02.611 Cutaneous abscess of right foot; E11.621 Type 2 diabetes mellitus with foot ulcer; K21.9 Gastro-esophageal reflux disease without esophagitis; E66.9 Obesity, unspecified; E11.42 Type 2 diabetes mellitus with diabetic polyneuropathy; E11.22 Type 2 diabetes mellitus with diabetic chronic kidney disease; I12.9 Hypertensive chronic kidney disease with stage 1 through stage 4 chronic kidney disease, or unspecified chronic kidney disease; N18.9 Chronic kidney disease, unspecified; Z89.412 Acquired absence of left great toe; Z83.3 Family history of diabetes mellitus; Z82.49 Family history of ischemic heart disease and other diseases of the circulatory system; Z68.31 Body mass index [BMI] 31.0-31.9, adult; Z79.4 Long term (current) use of insulin
CPT/HCPCS: 36415; 37224; 37229; 75625; 75710; 76937; 80048; 82962; 85027; 86140; 87040; 87075; 87076; 87116; 87186; 88302; 88304; 88305; 88311; G0378; A9577; C1724; C1725; C1760; C1769; C1887; C2623; J0690; J0696; J1100; J1335; J1644; J1815; J2001; J2250; J2370; J2405; J2704; J3010; J3370; J7030; J7040; Q9967

== ENCOUNTER 2019-10-24 12:09 | Outpatient (CLI) | payer OTHER | END 2019-10-24 12:10 | disposition home or self-care (01) | LOC: WOUND 12:09 | PROVIDERS: ATTEND Surgery | DX: T87.89 Other complications of amputation stump (principal); T81.89XA Other complications of procedures, not elsewhere classified, initial encounter; E11.621 Type 2 diabetes mellitus with foot ulcer; L97.522 Non-pressure chronic ulcer of other part of left foot with fat layer exposed; L97.511 Non-pressure chronic ulcer of other part of right foot limited to breakdown of skin; L84 Corns and callosities; Y83.5 Amputation of limb(s) as the cause of abnormal reaction of the patient, or of later complication, without mention of misadventure at the time of the procedure; Y83.8 Other surgical procedures as the cause of abnormal reaction of the patient, or of later complication, without mention of misadventure at the time of the procedure; Y92.89 Other specified places as the place of occurrence of the external cause | CPT/HCPCS: 97605 ==

== ENCOUNTER 2019-10-27 09:45 | Outpatient (CLI) | payer OTHER | END 2019-10-27 09:46 | disposition home or self-care (01) | LOC: WOUND 09:45 | PROVIDERS: ATTEND Surgery | DX: T87.89 Other complications of amputation stump (principal); E11.621 Type 2 diabetes mellitus with foot ulcer; L97.522 Non-pressure chronic ulcer of other part of left foot with fat layer exposed; L97.511 Non-pressure chronic ulcer of other part of right foot limited to breakdown of skin; L84 Corns and callosities; Y83.5 Amputation of limb(s) as the cause of abnormal reaction of the patient, or of later complication, without mention of misadventure at the time of the procedure | CPT/HCPCS: 97605 ==

== ENCOUNTER 2019-10-30 09:05 | Outpatient (CLI) | payer OTHER, SELFPAY ==
[2019-10-30] MEDS ORDERED: SILVER NITRATE APPLICATOR 1 EA TP SCH (10:00)
== END 2019-10-30 09:06 | disposition home or self-care (01) ==
LOC: WOUND 09:05
PROVIDERS: ATTEND Surgery
DX: T87.89 Other complications of amputation stump (principal); E11.621 Type 2 diabetes mellitus with foot ulcer; L97.526 Non-pressure chronic ulcer of other part of left foot with bone involvement without evidence of necrosis; L97.511 Non-pressure chronic ulcer of other part of right foot limited to breakdown of skin; L84 Corns and callosities; Y83.5 Amputation of limb(s) as the cause of abnormal reaction of the patient, or of later complication, without mention of misadventure at the time of the procedure
CPT/HCPCS: 17250; 97605

== ENCOUNTER 2019-11-03 08:48 | Outpatient (CLI) | payer OTHER | END 2019-11-03 08:49 | disposition home or self-care (01) | LOC: WOUND 08:48 | PROVIDERS: ATTEND Surgery | DX: T87.89 Other complications of amputation stump (principal); E11.621 Type 2 diabetes mellitus with foot ulcer; L97.521 Non-pressure chronic ulcer of other part of left foot limited to breakdown of skin; L97.511 Non-pressure chronic ulcer of other part of right foot limited to breakdown of skin; L84 Corns and callosities; Y83.5 Amputation of limb(s) as the cause of abnormal reaction of the patient, or of later complication, without mention of misadventure at the time of the procedure | CPT/HCPCS: 97605 ==

== ENCOUNTER 2019-11-06 08:39 | Outpatient (CLI) | payer OTHER ==
[2019-11-06] MEDS ORDERED: LIDOCAINE (4%) 40 MG/ML TOPICAL SOLN 50 ML BOTTLE TP SCH (09:00)
[2019-11-06] MEDS ORDERED: SILVER NITRATE APPLICATOR 1 EA TP ONE (09:30)
== END 2019-11-06 08:40 | disposition home or self-care (01) ==
LOC: WOUND 08:39
PROVIDERS: ATTEND Surgery
DX: T87.89 Other complications of amputation stump (principal); E11.621 Type 2 diabetes mellitus with foot ulcer; L97.521 Non-pressure chronic ulcer of other part of left foot limited to breakdown of skin; L97.511 Non-pressure chronic ulcer of other part of right foot limited to breakdown of skin; L84 Corns and callosities; Y83.5 Amputation of limb(s) as the cause of abnormal reaction of the patient, or of later complication, without mention of misadventure at the time of the procedure
CPT/HCPCS: 97605

== ENCOUNTER 2019-11-10 10:54 | Outpatient (CLI) | payer OTHER | END 2019-11-10 10:55 | disposition home or self-care (01) | LOC: WOUND 10:54 | PROVIDERS: ATTEND Surgery | DX: T87.89 Other complications of amputation stump (principal); E11.621 Type 2 diabetes mellitus with foot ulcer; L97.521 Non-pressure chronic ulcer of other part of left foot limited to breakdown of skin; L97.511 Non-pressure chronic ulcer of other part of right foot limited to breakdown of skin; L84 Corns and callosities; Y83.5 Amputation of limb(s) as the cause of abnormal reaction of the patient, or of later complication, without mention of misadventure at the time of the procedure | CPT/HCPCS: 97605 ==

== ENCOUNTER 2019-11-13 08:39 | Outpatient (CLI) | payer OTHER, SELFPAY ==
[2019-11-13] MEDS ORDERED: LIDOCAINE (4%) 40 MG/ML TOPICAL SOLN 50 ML BOTTLE TP ONE (09:30)
[2019-11-13] MEDS ORDERED: SILVER NITRATE APPLICATOR 1 EA TP ONE (09:30)
== END 2019-11-13 08:40 | disposition home or self-care (01) ==
LOC: WOUND 08:39
PROVIDERS: ATTEND Surgery
DX: T87.89 Other complications of amputation stump (principal); E11.621 Type 2 diabetes mellitus with foot ulcer; L97.521 Non-pressure chronic ulcer of other part of left foot limited to breakdown of skin; L97.511 Non-pressure chronic ulcer of other part of right foot limited to breakdown of skin; L84 Corns and callosities; Y83.5 Amputation of limb(s) as the cause of abnormal reaction of the patient, or of later complication, without mention of misadventure at the time of the procedure
CPT/HCPCS: 97597; 97605

== ENCOUNTER 2019-11-17 14:40 | Outpatient (CLI) | payer OTHER | END 2019-11-17 14:41 | disposition home or self-care (01) | LOC: WOUND 14:40 | PROVIDERS: ATTEND Surgery | DX: T87.89 Other complications of amputation stump (principal); E11.621 Type 2 diabetes mellitus with foot ulcer; L97.521 Non-pressure chronic ulcer of other part of left foot limited to breakdown of skin; L97.511 Non-pressure chronic ulcer of other part of right foot limited to breakdown of skin; L84 Corns and callosities; Y83.5 Amputation of limb(s) as the cause of abnormal reaction of the patient, or of later complication, without mention of misadventure at the time of the procedure | CPT/HCPCS: 97605 ==

== ENCOUNTER 2019-11-20 10:38 | Outpatient (CLI) | payer OTHER | END 2019-11-20 10:39 | disposition home or self-care (01) | LOC: WOUND 10:38 | PROVIDERS: ATTEND Surgery | DX: T87.89 Other complications of amputation stump (principal); E11.621 Type 2 diabetes mellitus with foot ulcer; L97.521 Non-pressure chronic ulcer of other part of left foot limited to breakdown of skin; L97.518 Non-pressure chronic ulcer of other part of right foot with other specified severity; L84 Corns and callosities; Y83.5 Amputation of limb(s) as the cause of abnormal reaction of the patient, or of later complication, without mention of misadventure at the time of the procedure ==

== ENCOUNTER 2019-12-03 08:51 | Outpatient (CLI) | payer OTHER | END 2019-12-03 08:52 | disposition home or self-care (01) | LOC: WOUND 08:51 | PROVIDERS: ATTEND Surgery | DX: T87.89 Other complications of amputation stump (principal); E11.621 Type 2 diabetes mellitus with foot ulcer; L97.526 Non-pressure chronic ulcer of other part of left foot with bone involvement without evidence of necrosis; L84 Corns and callosities; Y83.5 Amputation of limb(s) as the cause of abnormal reaction of the patient, or of later complication, without mention of misadventure at the time of the procedure ==

== ENCOUNTER 2019-12-10 09:16 | Outpatient (CLI) | payer OTHER | END 2019-12-10 09:17 | disposition home or self-care (01) | LOC: WOUND 09:16 | PROVIDERS: ATTEND Surgery | DX: T87.89 Other complications of amputation stump (principal); E11.621 Type 2 diabetes mellitus with foot ulcer; L97.522 Non-pressure chronic ulcer of other part of left foot with fat layer exposed; L84 Corns and callosities; Y83.5 Amputation of limb(s) as the cause of abnormal reaction of the patient, or of later complication, without mention of misadventure at the time of the procedure ==

== ENCOUNTER → 2019-12-17 | Outpatient (CLI) | payer OTHER | END | disposition home or self-care (01) | LOC: WOUND 13:00 | PROVIDERS: ATTEND Surgery | DX: T87.89 Other complications of amputation stump (principal); E11.621 Type 2 diabetes mellitus with foot ulcer; L97.522 Non-pressure chronic ulcer of other part of left foot with fat layer exposed; L84 Corns and callosities; Y83.5 Amputation of limb(s) as the cause of abnormal reaction of the patient, or of later complication, without mention of misadventure at the time of the procedure ==

== ENCOUNTER 2019-12-31 09:29 | Outpatient (CLI) | payer OTHER ==
[2019-12-31] MEDS ORDERED: VITAMIN A & D OINT 56.7 GM TP SCH (10:00)
== END 2019-12-31 09:30 | disposition home or self-care (01) ==
LOC: WOUND 09:29
PROVIDERS: ATTEND Surgery
DX: T87.89 Other complications of amputation stump (principal); E11.621 Type 2 diabetes mellitus with foot ulcer; L97.522 Non-pressure chronic ulcer of other part of left foot with fat layer exposed; L84 Corns and callosities; Y83.5 Amputation of limb(s) as the cause of abnormal reaction of the patient, or of later complication, without mention of misadventure at the time of the procedure
CPT/HCPCS: A6250

== ENCOUNTER 2020-01-07 09:15 | Outpatient (CLI) | payer OTHER | END 2020-01-07 09:16 | disposition home or self-care (01) | LOC: WOUND 09:15 | PROVIDERS: ATTEND Surgery | DX: T87.89 Other complications of amputation stump (principal); E11.621 Type 2 diabetes mellitus with foot ulcer; L97.522 Non-pressure chronic ulcer of other part of left foot with fat layer exposed; L84 Corns and callosities; Y83.5 Amputation of limb(s) as the cause of abnormal reaction of the patient, or of later complication, without mention of misadventure at the time of the procedure ==

== ENCOUNTER 2020-01-21 08:57 | Outpatient (CLI) | payer OTHER | END 2020-01-21 08:58 | disposition home or self-care (01) | LOC: WOUND 08:57 | PROVIDERS: ATTEND Surgery | DX: T87.89 Other complications of amputation stump (principal); E11.621 Type 2 diabetes mellitus with foot ulcer; L97.522 Non-pressure chronic ulcer of other part of left foot with fat layer exposed; L84 Corns and callosities; Y83.5 Amputation of limb(s) as the cause of abnormal reaction of the patient, or of later complication, without mention of misadventure at the time of the procedure ==

== ENCOUNTER 2020-01-28 08:56 | Outpatient (CLI) | payer OTHER | END 2020-01-28 08:57 | disposition home or self-care (01) | LOC: WOUND 08:56 | PROVIDERS: ATTEND Surgery | DX: T87.89 Other complications of amputation stump (principal); E11.621 Type 2 diabetes mellitus with foot ulcer; L97.526 Non-pressure chronic ulcer of other part of left foot with bone involvement without evidence of necrosis; L84 Corns and callosities; Y83.5 Amputation of limb(s) as the cause of abnormal reaction of the patient, or of later complication, without mention of misadventure at the time of the procedure ==

== ENCOUNTER 2020-02-04 08:54 | Outpatient (CLI) | payer OTHER | END 2020-02-04 08:55 | disposition home or self-care (01) | LOC: WOUND 08:54 | PROVIDERS: ATTEND Surgery | DX: T87.89 Other complications of amputation stump (principal); E11.621 Type 2 diabetes mellitus with foot ulcer; L97.522 Non-pressure chronic ulcer of other part of left foot with fat layer exposed; L84 Corns and callosities; Y83.5 Amputation of limb(s) as the cause of abnormal reaction of the patient, or of later complication, without mention of misadventure at the time of the procedure ==

== ENCOUNTER 2020-03-24 08:21 | Outpatient (CLI) | payer SELFPAY | END 2020-03-24 08:22 | disposition home or self-care (01) | LOC: WOUND 08:21 | PROVIDERS: ATTEND Surgery | DX: T87.89 Other complications of amputation stump (principal); E11.621 Type 2 diabetes mellitus with foot ulcer; L97.522 Non-pressure chronic ulcer of other part of left foot with fat layer exposed; L84 Corns and callosities; Y83.5 Amputation of limb(s) as the cause of abnormal reaction of the patient, or of later complication, without mention of misadventure at the time of the procedure ==

== ENCOUNTER 2020-04-14 09:24 | Outpatient (CLI) | payer SELFPAY | END 2020-04-14 09:25 | disposition home or self-care (01) | LOC: WOUND 09:24 | PROVIDERS: ATTEND Surgery | DX: T87.89 Other complications of amputation stump (principal); E11.621 Type 2 diabetes mellitus with foot ulcer; L97.522 Non-pressure chronic ulcer of other part of left foot with fat layer exposed; L84 Corns and callosities; Y83.5 Amputation of limb(s) as the cause of abnormal reaction of the patient, or of later complication, without mention of misadventure at the time of the procedure ==

== ENCOUNTER 2020-04-28 08:20 | Outpatient (CLI) | payer SELFPAY | END 2020-04-28 08:21 | disposition home or self-care (01) | LOC: WOUND 08:20 | PROVIDERS: ATTEND Surgery | DX: T87.89 Other complications of amputation stump (principal); L84 Corns and callosities; Y83.5 Amputation of limb(s) as the cause of abnormal reaction of the patient, or of later complication, without mention of misadventure at the time of the procedure | CPT/HCPCS: 99213; G0463 ==